=== PATIENT | female | born 1985 | race American Indian/Alaskan Native ===

== ENCOUNTER 2021-04-22 23:46 | Inpatient (IN) | payer OTHER ==
[2021-04-23] MEDS ORDERED: ASPIRIN 325 MG TAB PO ONE (01:05)
[2021-04-23 01:48] LABS: Basophils # (Auto) 0.1 K/mm3 (0.0-0.1); Eosinophils # (Auto) 0.1 K/mm3 (0.0-0.4); Eosinophils % (Auto) 1.2 % (0.0-4.3); Lymphocytes # (Auto) 2.7 K/mm3 (1.2-5.4); Lymphocytes % (Auto) 45.7 % (13.4-35.0); Mean Corpuscular HGB Conc 31 % (30-34); Mean Corpuscular Volume 74 fl (79-97); Monocytes # (Auto) 0.5 K/mm3 (0.0-0.8); Monocytes % (Auto) 9.1 % (0.0-7.3); Platelet Count 244 K/mm3 (140-440); Red Blood Count 6.16 M/mm3 (3.65-5.03)
[2021-04-23 01:49] LABS: Hematocrit 45.5 % (30.3-42.9); Hemoglobin 13.9 gm/dl (10.1-14.3); Red Cell Distribution Width 22.2 % (13.2-15.2)
--- NOTE | 2021-04-23 02:04 | XRay Report ---
CHEST 1 VIEW, 04/23/2021 1:35 AM CLINICAL INFORMATION/INDICATION: Chest pain. Shortness of breath. COMPARISON: None. FINDINGS: SUPPORT DEVICES: None. HEART: Cardiac silhouette is upper limits of normal in size. LUNGS/PLEURA: There are bibasilar pleural-parenchymal opacities, right greater than left. ADDITIONAL FINDINGS: No additional acute findings. IMPRESSION: 1. Bibasilar pleural-parenchymal opacities which may be secondary to bilateral pleural effusions. Signer Name: Rizwana Huff MD Signed: 04/23/2021 1:59 AM Workstation Name: [id number]
[2021-04-23 02:15] LABS: Alanine Aminotransferase 31 units/L (7-56); Albumin 3.7 g/dL (3.9-5); BUN/Creatinine Ratio 20; Blood Urea Nitrogen 28 mg/dL (7-17); Calcium 9.4 mg/dL (8.4-10.2); Hemolysis Index 5
[2021-04-23] MEDS ORDERED: ASPIRIN 325 MG TAB ONE (10:58)
[2021-04-23] MEDS ORDERED: FUROSEMIDE 40 MG/4 ML INJ IV ONE (11:41)
--- NOTE | 2021-04-23 11:43 | Emergency Department Report ---
ED General Adult HPI - General Chief complaint: Chest Pain Stated complaint: JOSE/CHEST PAIN PUI?: No Time Seen by Provider: 04/23/21 11:32 Source: patient, EMS ( EMS documentation not available at time of chart dictation ), RN notes reviewed Mode of arrival: Wheelchair Limitations: Altered Mental Status - History of Present Illness Initial comments: The patient was evaluated in the emergency department for symptoms described in the history of present illness. He/she was evaluated in the context of the global COVID-19 pandemic, which necessitated consideration that the patient might be at risk for infection with the virus that causes COVID-19. Institutional protocols and algorithms that pertain to the evaluation of hamilton ents at risk for COVID-19 are in a state of rapid change based on information released by regulatory bodies including the CDC and federal and state organizations. These policies and algorithms were followed during the patient's care in the emergency department. Please note that these policies, procedures and recommendations changed on a rapid basis. This is a 35-year-old female. She is not known to myself previously. The details of her past medical history are unclear. The patient is reportedly brought to this hospital by emergency medical services this morning. Her triage past medical history includes CHF, heart disease, thoracentesis, and stroke. Apparently, the patient had a complaint of chest tightness, shortness of breath, and swelling. Upon my initial evaluation, the patient is sleeping in her stretcher. Saturating 82% on room air, and snoring loudly. The patient is very difficult to arouse. Eventually I am able to arouse her, and she tells me that she is having shortness of breath, and lower extremity swelling. However, she goes right back to sleep. The patient is a poor historian, and has difficulty describing the qualitative nature of symptoms, exacerbating factors, relieving factors, or aggravating factors. She is not accompanied by friends or family at this time for additional information or collateral information. She cannot tell me if she is now, or if she is delivered or given within the past 6 weeks. No additional history is available at this time. -: unknown Location: left, right, lower extremity - Related Data Allergies Allergy/AdvReac Type Severity Reaction Status Date / Time No Known Allergies Allergy Unverified 04/23/21 01:02 ED Review of Systems ROS: Stated complaint: JOSE/CHEST PAIN Other details as noted in HPI Comment: Unobtainable due to pts medical conditions Constitutional: malaise, weakness Respiratory: shortness of breath Cardiovascular: edema Neurological: weakness, confusion ED Past Medical Hx - Past Medical History Hx CVA: Yes Hx Heart Attack/AMI: Yes Hx Congestive Heart Failure: Yes Additional medical history: thoracentesis - Surgical History Past Surgical History?: No - Social History Smoking Status: Current Every Day Smoker Substance Use Type: None ED Physical Exam - General Limitations: Altered Mental Status General appearance: lethargic - Head Head exam: Present: atraumatic, normocephalic - Eye Eye exam: Present: normal appearance - ENT ENT exam: Present: normal exam, normal orophraynx, mucous membranes moist, normal external ear exam - Neck Neck exam: Present: normal inspection. Absent: tenderness, meningismus - Respiratory Respiratory exam: Present: rales. Absent: respiratory distress, wheezes, stridor - Cardiovascular Cardiovascular Exam: Present: regular rate, normal rhythm, normal heart sounds. Absent: bradycardia, tachycardia, irregular rhythm, systolic murmur, diastolic murmur, rubs, gallop - GI/Abdominal GI/Abdominal exam: Present: soft, other (Abdominal wall anasarca is noted). Absent: distended, tenderness, guarding, rebound, rigid, pulsatile mass - Extremities Exam Extremities exam: Present: normal inspection, pedal edema (3+ edema in the bilateral lower extremities), other (2+ pulses noted in the bilateral upper and lower extremities. There is no palpable cord. negative Homans sign. Muscular compartments are soft. The pelvis is stable.) - Back Exam Back exam: Present: normal inspection. Absent: tenderness, CVA tenderness (R), CVA tenderness (L), paraspinal tenderness, vertebral tenderness - Neurological Exam Neurological exam: Present: altered, other (The patient is sleepy. The patient is arousable. The patient will move 4 extremities.) - Psychiatric Psychiatric exam: Present: flat affect - Skin Skin exam: Present: warm, dry, intact, normal color. Absent: rash ED Course Vital Signs 04/23/21 04/23/21 04/23/21 01:03 01:33 10:33 Temperature 97.4 F L 98 F Pulse Rate 92 H 92 H 92 H Respiratory 18 27 H 19 Rate Blood Pressure 117/89 O2 Sat by Pulse 99 93 90 Oximetry 04/23/21 04/23/21 04/23/21 10:46 11:00 11:16 Temperature Pulse Rate 85 92 H 83 Respiratory 25 H 34 H 22 Rate Blood Pressure 123/95 114/82 114/82 O2 Sat by Pulse 98 86 99 Oximetry 04/23/21 04/23/21 04/23/21 11:30 11:46 12:00 Temperature Pulse Rate 84 91 H 92 H Respiratory 24 31 H 31 H Rate Blood Pressure 109/84 109/84 108/83 O2 Sat by Pulse 93 96 93 Oximetry 04/23/21 04/23/21 04/23/21 12:16 13:24 13:30 Temperature Pulse Rate 94 H 93 H 88 Respiratory 39 H 12 29 H Rate Blood Pressure 108/83 109/84 115/88 O2 Sat by Pulse 86 89 Oximetry - Reevaluation(s) Reevaluation #1: 04/23/21 13:[address] scan of the brain negative for acute findings. 04/23/21 14:38 Suspect that lactic acid is elevated as a type II/type B lactic acidosis. Patient already demonstrating evidence of florid fluid overload, and will not benefit from aggressive IV fluid resuscitation at this time. ED Medical Decision Making - Lab Data Result diagrams: 04/23/21 01:20 04/23/21 01:20 Vital Signs 04/23/21 01:03 Temperature 97.4 F L Pulse Rate 92 H Respiratory 18 Rate Blood Pressure 117/89 O2 Sat by Pulse 99 Oximetry Lab Results 04/23/21 04/23/21 04/23/21 Range/Units 01:20 01:20 10:49 WBC 5.8 (4.5-11.0) K/mm3 RBC 6.16 H (3.65-5.03) M/mm3 Hgb 13.9 (10.1-14.3) gm/dl Hct 45.5 H (30.3-42.9) % MCV 74 L (79-97) fl MCH 23 L (28-32) pg MCHC 31 (30-34) % RDW 22.2 H (13.2-15.2) % Plt Count 244 (140-440) K/mm3 Lymph % (Auto) 45.7 H (13.4-35.0) % [place] % (Auto) 9.1 H (0.0-7.3) % Eos % (Auto) 1.2 (0.0-4.3) % Baso % (Auto) 1.0 (0.0-1.8) % Lymph # (Auto) 2.7 (1.2-5.4) K/mm3 [place] # (Auto) 0.5 (0.0-0.8) K/mm3 Eos # (Auto) 0.1 (0.0-0.4) K/mm3 Baso # (Auto) 0.1 (0.0-0.1) K/mm3 Seg Neutrophils % 43.0 (40.0-70.0) % Seg Neutrophils # 2.5 (1.8-7.7) K/mm3 Sodium 141 (137-145) mmol/L Potassium 4.1 (3.6-5.0) mmol/L Chloride 101.0 (98-107) mmol/L Carbon Dioxide 25 (22-30) mmol/L Anion Gap 19 mmol/L BUN 28 H (7-17) mg/dL Creatinine 1.4 H (0.6-1.2) mg/dL Estimated GFR 43 ml/min BUN/Creatinine Ratio 20 % Glucose 92 (65-100) mg/dL Calcium 9.4 (8.4-10.2) mg/dL Total Bilirubin 1.80 H (0.1-1.2) mg/dL AST 31 (5-40) units/L ALT 31 (7-56) units/L Alkaline Phosphatase 213 H (35-129) units/L Troponin T < 0.010 < 0.010 (0.00-0.029) ng/mL NT-Pro-B Natriuret Pep (0-450) pg/mL Total Protein 6.4 (6.3-8.2) g/dL Albumin 3.7 L (3.9-5) g/dL Albumin/Globulin Ratio 1.4 % Lipase (13-60) units/L 04/23/21 Range/Units 10:49 WBC (4.5-11.0) K/mm3 RBC (3.65-5.03) M/mm3 Hgb (10.1-14.3) gm/dl Hct (30.3-42.9) % MCV (79-97) fl MCH (28-32) pg MCHC (30-34) % RDW (13.2-15.2) % Plt Count (140-440) K/mm3 Lymph % (Auto) (13.4-35.0) % [place] % (Auto) (0.0-7.3) % Eos % (Auto) (0.0-4.3) % Baso % (Auto) (0.0-1.8) % Lymph # (Auto) (1.2-5.4) K/mm3 [place] # (Auto) (0.0-0.8) K/mm3 Eos # (Auto) (0.0-0.4) K/mm3 Baso # (Auto) (0.0-0.1) K/mm3 Seg Neutrophils % (40.0-70.0) % Seg Neutrophils # (1.8-7.7) K/mm3 Sodium (137-145) mmol/L Potassium (3.6-5.0) mmol/L Chloride (98-107) mmol/L Carbon Dioxide (22-30) mmol/L Anion Gap mmol/L BUN (7-17) mg/dL Creatinine (0.6-1.2) mg/dL Estimated GFR ml/min BUN/Creatinine Ratio % Glucose (65-100) mg/dL Calcium (8.4-10.2) mg/dL Total Bilirubin (0.1-1.2) mg/dL AST (5-40) units/L ALT (7-56) units/L Alkaline Phosphatase (35-129) units/L Troponin T (0.00-0.029) ng/mL NT-Pro-B Natriuret Pep 5810 H (0-450) pg/mL Total Protein (6.3-8.2) g/dL Albumin (3.9-5) g/dL Albumin/Globulin Ratio % Lipase 21 (13-60) units/L Lab Results 04/23/21 04/23/21 04/23/21 Range/Units 01:20 01:20 10:49 WBC 5.8 (4.5-11.0) K/mm3 RBC 6.16 H (3.65-5.03) M/mm3 Hgb 13.9 (10.1-14.3) gm/dl Hct 45.5 H (30.3-42.9) % MCV 74 L (79-97) fl MCH 23 L (28-32) pg MCHC 31 (30-34) % RDW 22.2 H (13.2-15.2) % Plt Count 244 (140-440) K/mm3 Lymph % (Auto) 45.7 H (13.4-35.0) % [place] % (Auto) 9.1 H (0.0-7.3) % Eos % (Auto) 1.2 (0.0-4.3) % Baso % (Auto) 1.0 (0.0-1.8) % Lymph # (Auto) 2.7 (1.2-5.4) K/mm3 [place] # (Auto) 0.5 (0.0-0.8) K/mm3 Eos # (Auto) 0.1 (0.0-0.4) K/mm3 Baso # (Auto) 0.1 (0.0-0.1) K/mm3 Seg Neutrophils % 43.0 (40.0-70.0) % Seg Neutrophils # 2.5 (1.8-7.7) K/mm3 Sodium 141 (137-145) mmol/L Potassium 4.1 (3.6-5.0) mmol/L Chloride 101.0 (98-107) mmol/L Carbon Dioxide 25 (22-30) mmol/L Anion Gap 19 mmol/L BUN 28 H (7-17) mg/dL Creatinine 1.4 H (0.6-1.2) mg/dL Estimated GFR 43 ml/min BUN/Creatinine Ratio 20 % Glucose 92 (65-100) mg/dL Calcium 9.4 (8.4-10.2) mg/dL Magnesium (1.7-2.3) mg/dL Total Bilirubin 1.80 H (0.1-1.2) mg/dL AST 31 (5-40) units/L ALT 31 (7-56) units/L Alkaline Phosphatase 213 H (35-129) units/L Total Creatine Kinase (30-135) units/L Troponin T < 0.010 < 0.010 (0.00-0.029) ng/mL NT-Pro-B Natriuret Pep (0-450) pg/mL Total Protein 6.4 (6.3-8.2) g/dL Albumin 3.7 L (3.9-5) g/dL Albumin/Globulin Ratio 1.4 % Lipase (13-60) units/L TSH (0.270-4.200) mlU/mL HCG, Quant (0-4) mIU/mL Salicylates (2.8-20.0) mg/dL Acetaminophen (10.0-30.0) ug/mL Plasma/Serum Alcohol (0-0.07) % 04/23/21 04/23/21 04/23/21 Range/Units 10:49 12:53 12:53 WBC (4.5-11.0) K/mm3 RBC (3.65-5.03) M/mm3 Hgb (10.1-14.3) gm/dl Hct (30.3-42.9) % MCV (79-97) fl MCH (28-32) pg MCHC (30-34) % RDW (13.2-15.2) % Plt Count (140-440) K/mm3 Lymph % (Auto) (13.4-35.0) % [place] % (Auto) (0.0-7.3) % Eos % (Auto) (0.0-4.3) % Baso % (Auto) (0.0-1.8) % Lymph # (Auto) (1.2-5.4) K/mm3 [place] # (Auto) (0.0-0.8) K/mm3 Eos # (Auto) (0.0-0.4) K/mm3 Baso # (Auto) (0.0-0.1) K/mm3 Seg Neutrophils % (40.0-70.0) % Seg Neutrophils # (1.8-7.7) K/mm3 Sodium (137-145) mmol/L Potassium (3.6-5.0) mmol/L Chloride (98-107) mmol/L Carbon Dioxide (22-30) mmol/L Anion Gap mmol/L BUN (7-17) mg/dL Creatinine (0.6-1.2) mg/dL Estimated GFR ml/min BUN/Creatinine Ratio % Glucose (65-100) mg/dL Calcium (8.4-10.2) mg/dL Magnesium 2.10 (1.7-2.3) mg/dL Total Bilirubin (0.1-1.2) mg/dL AST (5-40) units/L ALT (7-56) units/L Alkaline Phosphatase (35-129) units/L Total Creatine Kinase 59 (30-135) units/L Troponin T (0.00-0.029) ng/mL NT-Pro-B Natriuret Pep 5810 H (0-450) pg/mL Total Protein (6.3-8.2) g/dL Albumin (3.9-5) g/dL Albumin/Globulin Ratio % Lipase 21 (13-60) units/L TSH 4.330 H (0.270-4.200) mlU/mL HCG, Quant (0-4) mIU/mL Salicylates (2.8-20.0) mg/dL Acetaminophen (10.0-30.0) ug/mL Plasma/Serum Alcohol (0-0.07) % 04/23/21 04/23/21 04/23/21 Range/Units 12:53 12:53 12:53 WBC (4.5-11.0) K/mm3 RBC (3.65-5.03) M/mm3 Hgb (10.1-14.3) gm/dl Hct (30.3-42.9) % MCV (79-97) fl MCH (28-32) pg MCHC (30-34) % RDW (13.2-15.2) % Plt Count (140-440) K/mm3 Lymph % (Auto) (13.4-35.0) % [place] % (Auto) (0.0-7.3) % Eos % (Auto) (0.0-4.3) % Baso % (Auto) (0.0-1.8) % Lymph # (Auto) (1.2-5.4) K/mm3 [place] # (Auto) (0.0-0.8) K/mm3 Eos # (Auto) (0.0-0.4) K/mm3 Baso # (Auto) (0.0-0.1) K/mm3 Seg Neutrophils % (40.0-70.0) % Seg Neutrophils # (1.8-7.7) K/mm3 Sodium (137-145) mmol/L Potassium (3.6-5.0) mmol/L Chloride (98-107) mmol/L Carbon Dioxide (22-30) mmol/L Anion Gap mmol/L BUN (7-17) mg/dL Creatinine (0.6-1.2) mg/dL Estimated GFR ml/min BUN/Creatinine Ratio % Glucose (65-100) mg/dL Calcium (8.4-10.2) mg/dL Magnesium (1.7-2.3) mg/dL Total Bilirubin (0.1-1.2) mg/dL AST (5-40) units/L ALT (7-56) units/L Alkaline Phosphatase (35-129) units/L Total Creatine Kinase (30-135) units/L Troponin T (0.00-0.029) ng/mL NT-Pro-B Natriuret Pep (0-450) pg/mL Total Protein (6.3-8.2) g/dL Albumin (3.9-5) g/dL Albumin/Globulin Ratio % Lipase (13-60) units/L TSH (0.270-4.200) mlU/mL HCG, Quant < 2 (0-4) mIU/mL Salicylates 0.6 L (2.8-20.0) mg/dL Acetaminophen 5.0 L (10.0-30.0) ug/mL Plasma/Serum Alcohol (0-0.07) % 04/23/21 Range/Units 12:53 WBC (4.5-11.0) K/mm3 RBC (3.65-5.03) M/mm3 Hgb (10.1-14.3) gm/dl Hct (30.3-42.9) % MCV (79-97) fl MCH (28-32) pg MCHC (30-34) % RDW (13.2-15.2) % Plt Count (140-440) K/mm3 Lymph % (Auto) (13.4-35.0) % [place] % (Auto) (0.0-7.3) % Eos % (Auto) (0.0-4.3) % Baso % (Auto) (0.0-1.8) % Lymph # (Auto) (1.2-5.4) K/mm3 [place] # (Auto) (0.0-0.8) K/mm3 Eos # (Auto) (0.0-0.4) K/mm3 Baso # (Auto) (0.0-0.1) K/mm3 Seg Neutrophils % (40.0-70.0) % Seg Neutrophils # (1.8-7.7) K/mm3 Sodium (137-145) mmol/L Potassium (3.6-5.0) mmol/L Chloride (98-107) mmol/L Carbon Dioxide (22-30) mmol/L Anion Gap mmol/L BUN (7-17) mg/dL Creatinine (0.6-1.2) mg/dL Estimated GFR ml/min BUN/Creatinine Ratio % Glucose (65-100) mg/dL Calcium (8.4-10.2) mg/dL Magnesium (1.7-2.3) mg/dL Total Bilirubin (0.1-1.2) mg/dL AST (5-40) units/L ALT (7-56) units/L Alkaline Phosphatase (35-129) units/L Total Creatine Kinase (30-135) units/L Troponin T (0.00-0.029) ng/mL NT-Pro-B Natriuret Pep (0-450) pg/mL Total Protein (6.3-8.2) g/dL Albumin (3.9-5) g/dL Albumin/Globulin Ratio % Lipase (13-60) units/L TSH (0.270-4.200) mlU/mL HCG, Quant (0-4) mIU/mL Salicylates (2.8-20.0) mg/dL Acetaminophen (10.0-30.0) ug/mL Plasma/Serum Alcohol < 0.01 (0-0.07) % Vital Signs 04/23/21 04/23/21 04/23/21 01:03 01:33 10:33 Temperature 97.4 F L 98 F Pulse Rate 92 H 92 H 92 H Respiratory 18 27 H 19 Rate Blood Pressure 117/89 O2 Sat by Pulse 99 93 90 Oximetry 04/23/21 04/23/21 04/23/21 10:46 11:00 11:16 Temperature Pulse Rate 85 92 H 83 Respiratory 25 H 34 H 22 Rate Blood Pressure 123/95 114/82 114/82 O2 Sat by Pulse 98 86 99 Oximetry 04/23/21 04/23/21 04/23/21 11:30 11:46 12:00 Temperature Pulse Rate 84 91 H 92 H Respiratory 24 31 H 31 H Rate Blood Pressure 109/84 109/84 108/83 O2 Sat by Pulse 93 96 93 Oximetry 04/23/21 04/23/21 04/23/21 12:16 13:24 13:30 Temperature Pulse Rate 94 H 93 H 88 Respiratory 39 H 12 29 H Rate Blood Pressure 108/83 109/84 115/88 O2 Sat by Pulse 86 89 Oximetry - EKG Data -: EKG Interpreted by Fl EKG shows normal: sinus rhythm Rate: normal - EKG Data When compared to previous EKG there are: previous EKG unavailable 04/23/21 12:52 EKG interpreted at 02: 21 This is a sinus rhythm, with a normal P wave axis, rate 89 bpm. There is a normal axis, there is poor R wave progression, the QTC is prolonged, the W[place] interval is 199 ms. There is motion artifact. This is an abnormal EKG. This is not a STEMI. No prior available for comparison - Radiology Data Radiology results: report reviewed, image reviewed [facility] [address] [place] [address] XRay Report Signed Patient: SOFIA MARTÍNEZ MR#: [id number] : 1985 Acct:[id number] Age/Sex: 35 / F ADM Date: 04/22/21 Loc: ED [facility] Dr: Ordering Physician: ED MD MANSI Date of Service: 04/23/21 Procedure(s): XR chest 1V ap Accession Number(s): [id number] cc: ED MD MANSI Fluoro Time In Minutes: CHEST 1 VIEW, 04/23/2021 1:35 AM CLINICAL INFORMATION/INDICATION: Chest pain. Shortness of breath. COMPARISON: None. FINDINGS: SUPPORT DEVICES: None. HEART: Cardiac silhouette is upper limits of normal in size. LUNGS/PLEURA: There are bibasilar pleural-parenchymal opacities, right greater than left. ADDITIONAL FINDINGS: No additional acute findings. IMPRESSION: 1. Bibasilar pleural- parenchymal opacities which may be secondary to bilateral pleural effusions. Signer Name: Rizwana Huff MD Signed: 04/23/2021 1:59 AM Workstation Name: [id number] Transcribed By: EB Dictated By: Rizwana Huff MD Electronically Authenticated By: Rizwana Huff MD Signed Date/Time: 04/23/21158 DD/ 7 CT BRAIN: 04/23/2021 INDICATION / CLINICAL INFORMATION: ams. COMPARISON: None available. FINDINGS: BRAIN/INTRACRANIAL STRUCTURES: Unenhanced CT images of the brain demonstrate no evidence of acute intracranial abnormality. Ventricles and sulci are slightly prominent in size for a patient of this age, an in dication of mild cerebral atrophy. There is no evidence of acute ischemic injury, hemorrhage, or mass. There are no abnormal extra-axial fluid collections. EXTRACRANIAL STRUCTURES: Unremarkable. IMPRESSION: No acute abnormality. All CT scans at this location are performed using dose redu ction to [facility] by means of automated exposure control. Signer Name: Manuel Christopher MD Signed: 04/23/2021 11:57 AM Workstation Name: [id number] - Medical Decision Making Differential diagnosis Including but not limited to: Congestive heart failure, cardiorenal syndrome, hypercarbia, toxic encephalopathy, metabolic encephalopathy Assessment and plan 35-year-old female with evidence of decompensated congestive heart failure, manifest by hypoxia, crackles, rales, lower extremity edema, and anasarca. She may have a component of cardiorenal syndrome as well. She is confused during my initial evaluation, so we obtain a CT scan of the brain, as well as additional laboratory studies. Pneumonia is less likely than CHF, but we will cover empirically with ceftriaxone and azithromycin. Aspirin was admitted straight to this patient prior to my personal evaluation. Patient meets criteria for admission hospitalization secondary to the aforementioned. Arterial blood gas pending. Hospital physician, Dr. Mcdonald to admit to [facility] Critical Care Time: Yes Critical care time in (mins) excluding proc time.: 35 Critical care attestation.: If time is entered above; I have spent that time in minutes in the direct care of this critically ill patient, excluding procedure time. ED Disposition Clinical Impression: Cardiorenal syndrome with renal failure, Acute encephalopathy, Fluid overload Disposition: OP ADMIT IP TO THIS HOSP Is pt being admited?: Yes Does the pt Need Aspirin: No Condition: Serious
[2021-04-23] MEDS ORDERED: AZITHROMYCIN/NS 500 MG/250 ML 500 MG/250 ML BAG IV ONE (12:53)
[2021-04-23] MEDS ORDERED: cefTRIAXone/NS 1 GM/50 ML 1 GM/50 ML BAG IV ONE (12:53)
--- NOTE | 2021-04-23 13:01 | Cat Scan Report ---
CT BRAIN: 04/23/2021 INDICATION / CLINICAL INFORMATION: ams. COMPARISON: None available. FINDINGS: BRAIN/INTRACRANIAL STRUCTURES: Unenhanced CT images of the brain demonstrate no evidence of acute int racranial abnormality. Ventricles and sulci are slightly prominent in size for a patient of this age, an indication of mild cerebral atrophy. There is no evidence of acute ischemic injury, hemorrhage, or mass. There are no abnormal extra-axial fluid collections. EXTRACRANIAL STRUCTURES: Unremarkable. IMPRESSION: No acute abnormality. All CT scans at this location are performed using dose reduction to [facility] by means of automated expos ure control. Signer Name: Manuel Christopher MD Signed: 04/23/2021 12:57 PM Workstation Name: [id number]
[2021-04-24] MEDS ORDERED: SODIUM CHLORIDE 0.9% 1000 ML 1,000 ML IV ONE (01:14)
[2021-04-24] MEDS ORDERED: HYDROmorphone 1 MG/1 ML INJ IV PRN (01:58)
[2021-04-24] MEDS ORDERED: ONDANSETRON 4 MG/2 ML INJ IV PRN (01:58)
[2021-04-24] MEDS ORDERED: ACETAMINOPHEN 325 MG TAB PO PRN (01:58)
[2021-04-24] MEDS ORDERED: METOCLOPRAMIDE 10 MG/2 ML INJ IV PRN (01:58)
[2021-04-24] MEDS: POTASSIUM CHLORIDE ER 20 MEQ TAB PO SCH ×3 (04:55→21:33)
[2021-04-24] MEDS: HEPARIN 5,000 UNIT/1 ML VIAL SUB-Q SCH ×2 (04:55→10:47)
[2021-04-24] MEDS: FUROSEMIDE 40 MG/4 ML INJ IV SCH ×3 (06:17→17:25)
[2021-04-24 06:24] LABS: BUN/Creatinine Ratio 22; Blood Urea Nitrogen 26 mg/dL (7-17); Calcium 8.9 mg/dL (8.4-10.2); Hemolysis Index 69
--- NOTE | 2021-04-24 07:24 | History and Physical Report ---
History of Present Illness Date of examination: 04/23/21 Date of admission: 04/23/21 12:57 Chief complaint: Altered sensorium and shortness of breath for 2 days. History of present illness: 35-year-old female with history of CHF, CVA and pleural effusion was found to be lethargic and her oxygen saturations are low at 82%. Difficult to arouse. Shortness of breath on minimal exertion and lying down. Noncompliant with her medications. No fever or chills. - Past Medical History --CVA: Yes --Heart Attack/AMI: Yes --Congestive Heart Failure: Yes Additional medical history: thoracentesis - Surgical History Past Surgical History?: No - Social History Smoking Status: Current Every Day Smoker Substance Use Type: None -Family history Htn Review of Systems ROS: Stated complaint: JOSE/CHEST PAIN Other details as noted in HPI Comment: Unobtainable due to pts medical conditions Constitutional: malaise, weakness Respiratory: shortness of breath Cardiovascular: edema Neurological: weakness, confusion Medications and Allergies Allergies Allergy/AdvReac Type Severity Reaction Status Date / Time No Known Allergies Allergy Unverified 04/23/21 01:02 Active Meds: Active Medications Acetaminophen (Acetaminophen 325 Mg Tab) 650 mg PO Q4H PRN PRN Reason: Pain MILD(1-3)/Fever >100.5/ADEN Famotidine (Famotidine 20 Mg Tab) 20 mg PO QAM [facility] Furosemide (Furosemide 40 Mg/4 Ml Inj) 40 mg IV 0600,1800 [facility] Last Admin: 04/24/21 06:17 Dose: 40 mg Documented by: Heparin Sodium (Porcine) (Heparin 5,000 Unit/1 Ml Vial) 5,000 unit SUB-Q Q12HR [facility] Last Admin: 04/24/21 04:55 Dose: 5,000 unit Documented by: Hydromorphone HCl (Hydromorphone 1 Mg/1 Ml Inj) 0.5 mg IV Q3H PRN PRN Reason: Pain , Severe (7-10) Metoclopramide HCl (Metoclopramide 10 Mg/2 Ml Inj) 5 mg IV Q6H PRN PRN Reason: Nausea And Vomiting Ondansetron HCl (Ondansetron 4 Mg/2 Ml Inj) 4 mg IV Q8H PRN PRN Reason: Nausea And Vomiting Last Admin: 04/24/21 04:55 Dose: 4 mg Documented by: Oxycodone/Acetaminophen (Oxycodone /Acetaminophen 5-325mg Tab) 1 tab PO Q6H PRN PRN Reason: Pain, Moderate (4-6) Potassium Chloride (Potassium Chloride Er 20 Meq Tab) 20 meq PO Q12HR [facility] Last Admin: 04/24/21 04:55 Dose: 20 meq Documented by: Sodium Chloride (Sodium Chloride 0.9% 10 Ml Flush Syringe) 10 ml IV BID [facility] Sodium Chloride (Sodium Chloride 0.9% 10 Ml Flush Syringe) 10 ml IV PRN PRN PRN Reason: LINE FLUSH Exam - Constitutional Vitals: Temp Pulse Resp BP Pulse Ox 97.4 F L 90 19 124/99 100 04/24/21 03:49 04/24/21 06:00 04/24/21 03:49 04/24/21 03:49 04/24/21 03:49 General appearance: Present: mild distress, well-nourished - EENT Eyes: Present: PERRL ENT: hearing intact, clear oral mucosa - Neck Neck: Present: supple, normal ROM - Respiratory Respiratory effort: normal Respiratory: bilateral: CTA, rales - Cardiovascular Heart rate: 98 Rhythm: regular Heart Sounds: Present: S1 & S2. Absent: rub, click - Extremities Extremities: pulses symmetrical, No edema Peripheral Pulses: within normal limits - Abdominal General gastrointestinal: Present: soft, non-tender, non-distended, normal bowel sounds Female genitourinary: Present: normal - Rectal Rectal Exam: deferred - Integumentary Integumentary: Present: clear, warm, dry - Musculoskeletal Musculoskeletal: generalized weakness - Psychiatric Psychiatric: appropriate mood/affect, other (Lethargic) - Neurologic Neurologic: CNII-XII intact, moves all extremities HEART Score - HEART Score History: Moderately suspicious Age: < 45 Risk factors: 1-2 risk factors Troponin: Troponin T < 0.010 ng/mL (0.00-0.029) 04/23/21 10:49 Troponin: 1-3x normal limit - Critical Actions Critical Actions: 4-6 pts:12-16.6% risk of adverse cardiac event. Should be admitted Results - Labs CBC & Chem 7: 04/23/21 01:20 04/24/21 05:47 Labs: Laboratory Last Values WBC 5.8 K/mm3 (4.5-11.0) 04/23/21 01:20 RBC 6.16 M/mm3 (3.65-5.03) H 04/23/21 01:20 Hgb 13.9 gm/dl (10.1-14.3) 04/23/21 01:20 Hct 45.5 % (30.3-42.9) H 04/23/21 01:20 MCV 74 fl (79-97) L 04/23/21 01:20 MCH 23 pg (28-32) L 04/23/21 01:20 MCHC 31 % (30-34) 04/23/21 01:20 RDW 22.2 % (13.2-15.2) H 04/23/21 01:20 Plt Count 244 K/mm3 (140-440) 04/23/21 01:20 Lymph % (Auto) 45.7 % (13.4-35.0) H 04/23/21 01:20 [place] % (Auto) 9.1 % (0.0-7.3) H 04/23/21 01:20 Eos % (Auto) 1.2 % (0.0-4.3) 04/23/21 01:20 Baso % (Auto) 1.0 % (0.0-1.8) 04/23/21 01:20 Lymph # (Auto) 2.7 K/mm3 (1.2-5.4) 04/23/21 01:20 [place] # (Auto) 0.5 K/mm3 (0.0-0.8) 04/23/21 01:20 Eos # (Auto) 0.1 K/mm3 (0.0-0.4) 04/23/21 01:20 Baso # (Auto) 0.1 K/mm3 (0.0-0.1) 04/23/21 01:20 Seg Neutrophils % 43.0 % (40.0-70.0) 04/23/21 01:20 Seg Neutrophils # 2.5 K/mm3 (1.8-7.7) 04/23/21 01:20 Sodium 142 mmol/L (137-145) 04/24/21 05:47 Potassium 4.7 mmol/L (3.6-5.0) 04/24/21 05:47 Chloride 101.1 mmol/L (98-107) 04/24/21 05:47 Carbon Dioxide 27 mmol/L (22-30) 04/24/21 05:47 Anion Gap 19 mmol/L 04/24/21 05:47 BUN 26 mg/dL (7-17) H 04/24/21 05:47 Creatinine 1.2 mg/dL (0.6-1.2) 04/24/21 05:47 Estimated GFR > 60 ml/min 04/24/21 05:47 BUN/Creatinine Ratio 22 % 04/24/21 05:47 Glucose 102 mg/dL (65-100) H 04/24/21 05:47 Hemoglobin A1c 6.6 % (4-6) H 04/24/21 05:47 Lactic Acid 3.40 mmol/L (0.7-2.0) H* 04/24/21 05:47 Calcium 8.9 mg/dL (8.4-10.2) 04/24/21 05:47 Magnesium 2.10 mg/dL (1.7-2.3) 04/23/21 12:53 Total Bilirubin 1.80 mg/dL (0.1-1.2) H 04/23/21 01:20 AST 31 units/L (5-40) 04/23/21 01:20 ALT 31 units/L (7-56) 04/23/21 01:20 Alkaline Phosphatase 213 units/L (35-129) H 04/23/21 01:20 Total Creatine Kinase 59 units/L (30-135) 04/23/21 12:53 Troponin T < 0.010 ng/mL (0.00-0.029) 04/23/21 10:49 NT-Pro-B Natriuret Pep 5810 pg/mL (0-450) H 04/23/21 10:49 Total Protein 6.4 g/dL (6.3-8.2) 04/23/21 01:20 Albumin 3.7 g/dL (3.9-5) L 04/23/21 01:20 Albumin/Globulin Ratio 1.4 % 04/23/21 01:20 Lipase 21 units/L (13-60) 04/23/21 10:49 TSH 4.330 mlU/mL (0.270-4.200) H 04/23/21 12:53 HCG, Quant < 2 mIU/mL (0-4) 04/23/21 12:53 Salicylates 0.6 mg/dL (2.8-20.0) L 04/23/21 12:53 Acetaminophen 5.0 ug/mL (10.0-30.0) L 04/23/21 12:53 Plasma/Serum Alcohol < 0.01 % (0-0.07) 04/23/21 12:53 BMP 04/24/21 05:47 Sodium 142 Potassium 4.7 Chloride 101.1 Carbon Dioxide 27 BUN 26 H Creatinine 1.2 Glucose 102 H Calcium 8.9 Cardiac Enzymes 04/23/21 04/23/21 Range/Units 10:49 12:53 Total Creatine Kinase 59 (30-135) units/L Troponin T < 0.010 (0.00-0.029) ng/mL Microbiology: Microbiology 04/23/21 12:53 Peripheral/Venous Blood Culture - Preliminary Culture in Progress 04/23/21 12:51 Peripheral/Venous Blood Culture - Preliminary Culture in Progress - Imaging and Cardiology EKG: report reviewed (Sinus rhythm no acute ST-T wave changes) Imaging and Cardiology: Chest x-ray This is pleural parenchymal opacities which can be secondary to bilateral pl eural effusion Head CT No acute changes Matta/IV: Voiding Method External Female Catheter Assessment and Plan Advance Directives: Yes (Full code) VTE prophylaxis?: Chemical Plan of care discussed with patient/family: Yes - Patient Problems (1) Acute respiratory failure with hypoxia Current Visit: Yes Status: Acute Plan to address problem: Hypoxia secondary to CHF and bilateral pleural effusion IV Lasix for now echocardiogram for ejection fraction (2) Acute exacerbation of CHF (congestive heart failure) Current Visit: Yes Status: Acute Qualifiers: Heart failure type: combined systolic and diastolic Qualified Code(s): I50.43 - Acute on chronic combined systolic (congestive) and diastolic (congestive) heart failure Plan to address problem: Echocardiogram for ejection fraction IV Lasix every 12 hours Potassium every 12 hours Daily weights and intake and output BNP is high Cardiology consult if necessary (3) Hypertension Current Visit: Yes Status: Chronic Qualifiers: Hypertension type: essential hypertension Qualified Code(s): I10 - Essential (primary) hypertension Plan to address problem: Continue antihypertensives (4) Nicotine dependence Current Visit: Yes Status: Chronic Qualifiers: Nicotine product type: cigarettes Plan to address problem: Patient counseled and started on NicoDerm patches (5) SUSHANT (acute kidney injury) Current Visit: Yes Status: Acute Plan to address problem: Secondary to vasomotor nephropathy Trend the creatinine (6) Malnutrition Current Visit: Yes Status: Chronic Qualifiers: Malnutrition type: protein-calorie malnutrition Protein-calorie malnutrition severity: mild Qualified Code(s): E44.1 - Mild protein-calorie malnutrition Plan to address problem: Mild (7) DVT prophylaxis Current Visit: Yes Status: Acute Plan to address problem: On heparin and GI prophylaxis
[2021-04-24] MEDS ORDERED: carvediloL 3.125 MG TAB PO SCH ×2 (10:00→16:43)
[2021-04-24] MEDS ORDERED: LOSARTAN 50 MG TAB PO SCH (10:00)
[2021-04-24] MEDS: oxyCODONE /ACETAMINOPHEN 5-325MG TAB PO PRN ×2 (10:45→21:32)
[2021-04-24] MEDS: NICOTINE 14 MG/24 HR PATCH TD SCH (10:46)
[2021-04-24] MEDS: FAMOTIDINE 20 MG TAB PO SCH (10:46)
--- NOTE | 2021-04-24 13:48 | Consultation ---
History of Present Illness Consult date: 04/24/21 Reason for consult: dyspnea, pleural effusion History of present illness: 35-year-old female with history of HTN, CHF, CVA and pleural effusion was found to be lethargic and her oxygen saturations are low at 82%. Difficult to arouse. Shortness of breath on minimal exertion and lying down. Noncompliant with her medications. No fever or chills. Patient sleeping on 2 litres O2. O2 saturation 96%. Patient bearly arousable. Able to get little history. Patient smokes at times. Denies alcohol or drug abuse. Not working . Not . Children 1. No known drug allergies. No acute respiratory dustress at rest at this time. Patient afebrile. No leukocytosis. Chest xray 04/23/21 reported Bibasilar pleural-parenchymal opacities which may be secondary to bilateral pleural effusions. Recommend to get ultrasound of chest. Patient receiving lasix. Patient is on Rivaroxaban and famotidine. Medications and Allergies Allergies Allergy/AdvReac Type Severity Reaction Status Date / Time No Known Allergies Allergy Unverified 04/23/21 01:02 Active Meds: Active Medications Acetaminophen (Acetaminophen 325 Mg Tab) 650 mg PO Q4H PRN PRN Reason: Pain MILD(1-3)/Fever >100.5/ADEN Carvedilol (Carvedilol 3.125 Mg Tab) 3.125 mg PO BID [facility] Last Admin: 04/24/21 10:45 Dose: 3.125 mg Documented by: Famotidine (Famotidine 20 Mg Tab) 20 mg PO QAM [facility] Last Admin: 04/24/21 10:46 Dose: 20 mg Documented by: Furosemide (Furosemide 40 Mg/4 Ml Inj) 40 mg IV 0600,1800 [facility] Last Admin: 04/24/21 06:17 Dose: 40 mg Documented by: Heparin Sodium (Porcine) (Heparin 5,000 Unit/1 Ml Vial) 5,000 unit SUB-Q Q12HR [facility] Last Admin: 04/24/21 10:47 Dose: 5,000 unit Documented by: Hydromorphone HCl (Hydromorphone 1 Mg/1 Ml Inj) 0.5 mg IV Q3H PRN PRN Reason: Pain , Severe (7-10) Losartan Potassium (Losartan 50 Mg Tab) 50 mg PO QDAY [facility] Last Admin: 04/24/21 10:45 Dose: 50 mg Documented by: Metoclopramide HCl (Metoclopramide 10 Mg/2 Ml Inj) 5 mg IV Q6H PRN PRN Reason: Nausea And Vomiting Nicotine (Nicotine 14 Mg/24 Hr Patch) 14 mg TD QDAY [facility] Last Admin: 04/24/21 10:46 Dose: 14 mg Documented by: Ondansetron HCl (Ondansetron 4 Mg/2 Ml Inj) 4 mg IV Q8H PRN PRN Reason: Nausea And Vomiting Last Admin: 04/24/21 04:55 Dose: 4 mg Documented by: Oxycodone/Acetaminophen (Oxycodone /Acetaminophen 5-325mg Tab) 1 tab PO Q6H PRN PRN Reason: Pain, Moderate (4-6) Last Admin: 04/24/21 10:45 Dose: 1 tab Documented by: Potassium Chloride (Potassium Chloride Er 20 Meq Tab) 20 meq PO Q12HR [facility] Last Admin: 04/24/21 10:47 Dose: 20 meq Documented by: Sodium Chloride (Sodium Chloride 0.9% 10 Ml Flush Syringe) 10 ml IV BID [facility] Last Admin: 04/24/21 10:46 Dose: 10 ml Documented by: Sodium Chloride (Sodium Chloride 0.9% 10 Ml Flush Syringe) 10 ml IV PRN PRN PRN Reason: LINE FLUSH Review of Systems All systems: negative Physical Examination Vital signs: Vital Signs Temp Pulse Resp BP Pulse Ox 97.4 F L 92 H 18 117/89 99 04/23/21 01:03 04/23/21 01:03 04/23/21 01:03 04/23/21 01:03 04/23/21 01:03 General appearance: no acute distress, other (Sleepy.) Eyes: non-icteric ENT: oropharynx moist Neck: supple, no JVD Ascultation: Bilateral: diminished breath sounds Cardiovascular: regular rate and rhythm Gastrointestinal: normoactive bowel sounds, soft, non-tender Integumentary: normal Extremities: no cyanosis, no edema Musculoskeletal: no deformities Gait: other (Resting in bed) non-focal exam, pupils equal and round depressed Results - Laboratory Findings CBC and BMP: 04/23/21 01:20 04/24/21 05:47 Abnormal lab findings: Abnormal Labs 04/23/21 04/23/21 04/23/21 01:20 01:20 10:49 RBC 6.16 H Hct 45.5 H MCV 74 L MCH 23 L RDW 22.2 H Lymph % (Auto) 45.7 H [place] % (Auto) 9.1 H BUN 28 H Creatinine 1.4 H Glucose Hemoglobin A1c Lactic Acid Total Bilirubin 1.80 H Alkaline Phosphatase 213 H NT-Pro-B Natriuret Pep 5810 H Albumin 3.7 L TSH Salicylates Acetaminophen 04/23/21 04/23/21 04/23/21 12:53 12:53 12:53 RBC Hct MCV MCH RDW Lymph % (Auto) [place] % (Auto) BUN Creatinine Glucose Hemoglobin A1c Lactic Acid 3.00 H* Total Bilirubin Alkaline Phosphatase NT-Pro-B Natriuret Pep Albumin TSH 4.330 H Salicylates 0.6 L Acetaminophen 04/23/21 04/24/21 04/24/21 12:53 00:00 05:47 RBC Hct MCV MCH RDW Lymph % (Auto) [place] % (Auto) BUN Creatinine Glucose Hemoglobin A1c Lactic Acid 5.50 H* 3.40 H* Total Bilirubin Alkaline Phosphatase NT-Pro-B Natriuret Pep Albumin TSH Salicylates Acetaminophen 5.0 L 04/24/21 04/24/21 05:47 05:47 RBC Hct MCV MCH RDW Lymph % (Auto) [place] % (Auto) BUN 26 H Creatinine Glucose 102 H Hemoglobin A1c 6.6 H Lactic Acid Total Bilirubin Alkaline Phosphatase NT-Pro-B Natriuret Pep Albumin TSH Salicylates Acetaminophen - Diagnostic Findings Chest x-ray: report reviewed, image reviewed Additional studies: CHEST 1 VIEW, 04/23/2021 1:35 AM CLINICAL INFORMATION/INDICATION: Chest pain. Shortness of breath. COMPARISON: None. FINDINGS: SUPPORT DEVICES: None. HEART: Cardiac silhouette is upper limits of normal in size. LUNGS/PLEURA: There are bibasilar pleural-parenchymal opacities, right greater than left. ADDITIONAL FINDINGS: No additional acute findings. IMPRESSION: 1. Bibasilar pleural-parenchymal opacities which may be secondary to bilateral pleural effusions. Assessment and Plan 35-year-old female with history of HTN, CHF, CVA and pleural effusion was found to be lethargic and her oxygen saturations are low at 82%. Difficult to arouse. Shortness of breath on minimal exertion and lying down. Noncompliant with her medications. No fever or chills. Patient sleeping on 2 litres O2. O2 saturation 96%. Patient bearly arousable. Able to get little history. Patient smokes at times. Denies alcohol or drug abuse. Not working . Not . Children 1. No known drug allergies. No acute respiratory dustress at rest at this time. Patient afebrile. No leukocytosis. Chest xray 04/23/21 reported Bibasilar pleural-parenchymal opacities which may be secondary to bilateral pleural effusions. Recommend to get ultrasound of chest. Patient receiving lasix. Patient is on Rivaroxaban and famotidine. - Patient Problems (1) Acute respiratory failure with hypoxia Current Visit: Yes Status: Acute Plan to address problem: O2 2 litres via nasal canula. Recommend albuterol/atrovent aerosol treatment. Rivaroxaban Famotidine. (2) Acute exacerbation of CHF (congestive heart failure) Current Visit: Yes Status: Acute Qualifiers: Heart failure type: combined systolic and diastolic Qualified Code(s): I50.43 - Acute on chronic combined systolic (congestive) and diastolic (congestive) heart failure Plan to address problem: Management as per cardiology. (3) Cardiorenal syndrome with renal failure Current Visit: Yes Status: Acute Plan to address problem: Management as per nephrology. (4) Hypertension Current Visit: Yes Status: Chronic Qualifiers: Hypertension type: essential hypertension Qualified Code(s): I10 - Esse ntial (primary) hypertension Plan to address problem: Management as per primary care. (5) Nicotine dependence Current Visit: Yes Status: Chronic Qualifiers: Nicotine product type: cigarettes Plan to address problem: Counseled to stop smoking. PFTs as out patient. (6) Pleural effusion Current Visit: Yes Status: Acute Plan to address problem: Recommend ultrasound of chest.
--- NOTE | 2021-04-24 14:47 | Progress Note ---
Assessment and Plan Assessment and plan: Acute respiratory failure with hypoxia Hypoxia secondary to CHF and bilateral pleural effusion IV Lasix for now echocardiogram for ejection fraction Acute exacerbation of CHF (congestive heart failure) Echocardiogram for ejection fraction IV Lasix every 12 hours Potassium every 12 hours Daily weights and intake and output BNP is high Cardiology consulted Hypertension Continue antihypertensives Nicotine dependence Patient counseled and started on NicoDerm patches SUSHANT (acute kidney injury) Secondary to vasomotor nephropathy Improving DVT prophylaxis On heparin and GI prophylaxis Elevated Lactic acid. No signs or symptoms of sepsis 04/24/21 Patient admitted yesterday for acute respiratory failure due to CHF exacerbation and bilateral pleural effusion. Continue supplemental Oxygen. Cardiology and Pulmonology consulted. History Interval history: Shortness of breath Hospitalist Physical - Physical exam Narrative exam: Gen: Not in acute distress, lying in bed HEENT: Normochephalic, atraumatic Neck:supple, No JVD Lungs: Bilateral basal rales, no wheeze Heart:S1 and S2 reg, no murmurs, rubs or gallop Abd: soft, non tender, non distended, normal bowel sounds Ext: Bilateral pitting pedal edema, no clubbing, no cyanosis Neuro: Lethargic, moves all ext - Constitutional Vitals: Temp Pulse Resp BP Pulse Ox 97.6 F 94 H 20 137/104 96 04/24/21 08:08 04/24/21 08:08 04/24/21 08:08 04/24/21 08:08 04/24/21 08:08 HEART Score - HEART Score Age: < 45 Risk factors: 1-2 risk factors Troponin: Troponin T < 0.010 ng/mL (0.00-0.029) 04/23/21 10:49 Troponin: 1-3x normal limit - Critical Actions Critical Actions: 4-6 pts:12-16.6% risk of adverse cardiac event. Should be admitted Results - Labs CBC & Chem 7: 04/23/21 01:20 04/24/21 05:47 Labs: Laboratory Last Values WBC 5.8 K/mm3 (4.5-11.0) 04/23/21 01:20 RBC 6.16 M/mm3 (3.65-5.03) H 04/23/21 01:20 Hgb 13.9 gm/dl (10.1-14.3) 04/23/21 01:20 Hct 45.5 % (30.3-42.9) H 04/23/21 01:20 MCV 74 fl (79-97) L 04/23/21 01:20 MCH 23 pg (28-32) L 04/23/21 01:20 MCHC 31 % (30-34) 04/23/21 01:20 RDW 22.2 % (13.2-15.2) H 04/23/21 01:20 Plt Count 244 K/mm3 (140-440) 04/23/21 01:20 Lymph % (Auto) 45.7 % (13.4-35.0) H 04/23/21 01:20 [place] % (Auto) 9.1 % (0.0-7.3) H 04/23/21 01:20 Eos % (Auto) 1.2 % (0.0-4.3) 04/23/21 01:20 Baso % (Auto) 1.0 % (0.0-1.8) 04/23/21 01:20 Lymph # (Auto) 2.7 K/mm3 (1.2-5.4) 04/23/21 01:20 [place] # (Auto) 0.5 K/mm3 (0.0-0.8) 04/23/21 01:20 Eos # (Auto) 0.1 K/mm3 (0.0-0.4) 04/23/21 01:20 Baso # (Auto) 0.1 K/mm3 (0.0-0.1) 04/23/21 01:20 Seg Neutrophils % 43.0 % (40.0-70.0) 04/23/21 01:20 Seg Neutrophils # 2.5 K/mm3 (1.8-7.7) 04/23/21 01:20 Sodium 142 mmol/L (137-145) 04/24/21 05:47 Potassium 4.7 mmol/L (3.6-5.0) 04/24/21 05:47 Chloride 101.1 mmol/L (98-107) 04/24/21 05:47 Carbon Dioxide 27 mmol/L (22-30) 04/24/21 05:47 Anion Gap 19 mmol/L 04/24/21 05:47 BUN 26 mg/dL (7-17) H 04/24/21 05:47 Creatinine 1.2 mg/dL (0.6-1.2) 04/24/21 05:47 Estimated GFR > 60 ml/min 04/24/21 05:47 BUN/Creatinine Ratio 22 % 04/24/21 05:47 Glucose 102 mg/dL (65-100) H 04/24/21 05:47 Hemoglobin A1c 6.6 % (4-6) H 04/24/21 05:47 Lactic Acid 3.70 mmol/L (0.7-2.0) H* 04/24/21 13:10 Calcium 8.9 mg/dL (8.4-10.2) 04/24/21 05:47 Magnesium 2.10 mg/dL (1.7-2.3) 04/23/21 12:53 Total Bilirubin 1.80 mg/dL (0.1-1.2) H 04/23/21 01:20 AST 31 units/L (5-40) 04/23/21 01:20 ALT 31 units/L (7-56) 04/23/21 01:20 Alkaline Phosphatase 213 units/L (35-129) H 04/23/21 01:20 Total Creatine Kinase 59 units/L (30-135) 04/23/21 12:53 Troponin T < 0.010 ng/mL (0.00-0.029) 04/23/21 10:49 NT-Pro-B Natriuret Pep 5810 pg/mL (0-450) H 04/23/21 10:49 Total Protein 6.4 g/dL (6.3-8.2) 04/23/21 01:20 Albumin 3.7 g/dL (3.9-5) L 04/23/21 01:20 Albumin/Globulin Ratio 1.4 % 04/23/21 01:20 Lipase 21 units/L (13-60) 04/23/21 10:49 TSH 4.330 mlU/mL (0.270-4.200) H 04/23/21 12:53 HCG, Quant < 2 mIU/mL (0-4) 04/23/21 12:53 Salicylates 0.6 mg/dL (2.8-20.0) L 04/23/21 12:53 Acetaminophen 5.0 ug/mL (10.0-30.0) L 04/23/21 12:53 Plasma/Serum Alcohol < 0.01 % (0-0.07) 04/23/21 12:53 Microbiology: Microbiology 04/23/21 12:53 Peripheral/Venous Blood Culture - Preliminary NO GROWTH AFTER 24 HOURS 04/23/21 12:51 Peripheral/Venous Blood Culture - Preliminary NO GROWTH AFTER 24 HOURS Matta/IV: Voiding Method External Female Catheter Active Medications - Current Medications Current Medications: Generic Name Dose Route Start Last Admin Trade Name Freq PRN Reason Stop Dose Admin Acetaminophen 650 mg 04/24/21 01:58 Acetaminophen 325 Mg Tab PO Q4H PRN Pain MILD(1-3)/Fever >100.5/ADEN Carvedilol 3.125 mg 04/24/21 10:00 04/24/21 10:45 Carvedilol 3.125 Mg Tab PO 3.125 mg BID [facility] Administration Famotidine 20 mg 04/24/21 10:00 04/24/21 10:46 Famotidine 20 Mg Tab PO 20 mg QAM [facility] Administration Furosemide 40 mg 04/24/21 06:00 04/24/21 06:17 Furosemide 40 Mg/4 Ml Inj IV 40 mg 0600,1800 [facility] Administration Heparin Sodium (Porcine) 5,000 unit 04/24/21 02:15 04/24/21 10:47 Heparin 5,000 Unit/1 Ml Vial SUB-Q 5,000 unit Q12HR [facility] Administration Hydromorphone HCl 0.5 mg 04/24/21 01:58 Hydromorphone 1 Mg/1 Ml Inj IV Q3H PRN Pain , Severe (7-10) Losartan Potassium 50 mg 04/24/21 10:00 04/24/21 10:45 Losartan 50 Mg Tab PO 50 mg QDAY [facility] Administration Metoclopramide HCl 5 mg 04/24/21 01:58 Metoclopramide 10 Mg/2 Ml Inj IV Q6H PRN Nausea And Vomiting Nicotine 14 mg 04/24/21 10:00 04/24/21 10:46 Nicotine 14 Mg/24 Hr Patch TD 14 mg QDAY [facility] Administration Ondansetron HCl 4 mg 04/24/21 01:58 04/24/21 04:55 Ondansetron 4 Mg/2 Ml Inj IV 4 mg Q8H PRN Administration Nausea And Vomiting Oxycodone/Acetaminophen 1 tab 04/24/21 01:58 04/24/21 10:45 Oxycodone /Acetaminophen 5-325mg Tab PO 1 tab Q6H PRN Administration Pain, Moderate (4-6) Potassium Chloride 20 meq 04/24/21 02:00 04/24/21 10:47 Potassium Chloride Er 20 Meq Tab PO 20 meq Q12HR [facility] Administration Sodium Chloride 10 ml 04/24/21 10:00 04/24/21 10:46 Sodium Chloride 0.9% 10 Ml Flush Syringe IV 10 ml BID [facility] Administration Sodium Chloride 10 ml 04/24/21 01:58 Sodium Chloride 0.9% 10 Ml Flush Syringe IV PRN PRN LINE FLUSH Nutrition/Malnutrition Assess - Dietary Evaluation Nutrition/Malnutrition Findings: Nutrition Notes Start: 04/24/21 14:30 Freq: Status: Active Protocol: Document 04/24/21 14:30 (Rec: 04/24/21 14:33 [email or web address]) Nutrition Notes Need for Assessment generated from: MD Order Initial or Follow up Brief Note Current Diagnosis Acute Kidney Injury,Heart Failure,Respiratory Failure, Stroke Current Diet Cardiac Subjective/Other Information MD order for ONS. Pt reports no weight loss and eating 100% of meals. Pt mumbling and not talking much. Unsure of accuracy of pt report. Nutrition Intervention Follow-Up By: 04/26/21 Additional Comments FU for stable intakes
--- NOTE | 2021-04-24 16:08 | Consultation ---
History of Present Illness Consult date: 04/24/21 Requesting physician: JOSE RODRIGUEZ Consult reason: congestive heart failure History of present illness: This patient is a 35-year-old female with a significant history of heart failure, AMI plus CVA in 10/2020, hypertension, recent DVT plus PE 5 months ago, medical noncompliance, tobacco use, crack cocaine use. This patient is previously unknown to our practice she has been followed by [facility] in the past. Patient presents to [facility] with complaint of progressive weakness times several weeks and severe exhaustion with minimal exertion. Patient has been out of her anticoagulant and diuretic for several weeks. She states she is currently indigent and thus follow-up care has been a significant beto for her. She is currently prescribed Xarelto due to recent PE and DVT. Cardiology is consulted for heart failure. At time of interview patient is somnolent but denies dizziness, shortness of breath, chest pain, abdominal pain, N/V/D, recent illness or known exposures. BNP is noted to be elevated on admission along with elevated lactic acid of 5.5. Past History Past Medical History: other Medications and Allergies Allergies Allergy/AdvReac Type Severity Reaction Status Date / Time No Known Allergies Allergy Unverified 04/23/21 01:02 Active Meds: Active Medications Acetaminophen (Acetaminophen 325 Mg Tab) 650 mg PO Q4H PRN PRN Reason: Pain MILD(1-3)/Fever >100.5/ADEN Carvedilol (Carvedilol 3.125 Mg Tab) 3.125 mg PO BID [facility] Last Admin: 04/24/21 10:45 Dose: 3.125 mg Documented by: Famotidine (Famotidine 20 Mg Tab) 20 mg PO QAM [facility] Last Admin: 04/24/21 10:46 Dose: 20 mg Documented by: Furosemide (Furosemide 40 Mg/4 Ml Inj) 40 mg IV 0600,1800 [facility] Last Admin: 04/24/21 06:17 Dose: 40 mg Documented by: Heparin Sodium (Porcine) (Heparin 5,000 Unit/1 Ml Vial) 5,000 unit SUB-Q Q12HR [facility] Last Admin: 04/24/21 10:47 Dose: 5,000 unit Documented by: Hydromorphone HCl (Hydromorphone 1 Mg/1 Ml Inj) 0.5 mg IV Q3H PRN PRN Reason: Pain , Severe (7-10) Losartan Potassium (Losartan 50 Mg Tab) 50 mg PO QDAY [facility] Last Admin: 04/24/21 10:45 Dose: 50 mg Documented by: Metoclopramide HCl (Metoclopramide 10 Mg/2 Ml Inj) 5 mg IV Q6H PRN PRN Reason: Nausea And Vomiting Nicotine (Nicotine 14 Mg/24 Hr Patch) 14 mg TD QDAY [facility] Last Admin: 04/24/21 10:46 Dose: 14 mg Documented by: Ondansetron HCl (Ondansetron 4 Mg/2 Ml Inj) 4 mg IV Q8H PRN PRN Reason: Nausea And Vomiting Last Admin: 04/24/21 04:55 Dose: 4 mg Documented by: Oxycodone/Acetaminophen (Oxycodone /Acetaminophen 5-325mg Tab) 1 tab PO Q6H PRN PRN Reason: Pain, Moderate (4-6) Last Admin: 04/24/21 10:45 Dose: 1 tab Documented by: Potassium Chloride (Potassium Chloride Er 20 Meq Tab) 20 meq PO Q12HR [facility] Last Admin: 04/24/21 10:47 Dose: 20 meq Documented by: Sodium Chloride (Sodium Chloride 0.9% 10 Ml Flush Syringe) 10 ml IV BID [facility] Last Admin: 04/24/21 10:46 Dose: 10 ml Documented by: Sodium Chloride (Sodium Chloride 0.9% 10 Ml Flush Syringe) 10 ml IV PRN PRN PRN Reason: LINE FLUSH Review of Systems Constitutional: no weight loss, no weight gain, no fever, no chills, no sweats Ears, nose, mouth and throat: no ear pain, no ear discharge, no nose pain, no nasal congestion, no nasal discharge Cardiovascular: shortness of breath, dyspnea on exertion, decreased exercise tolerance, no chest pain, no orthopnea, no palpitations, no rapid/irregular heart beat, no edema, no syncope, no lightheadedness, no paroxysmal nocturnal dyspnea, no claudication, no phlebitis, no high blood pressure, no leg edema Respiratory: cough, dyspnea on exertion, no hemoptysis, no shortness of breath Gastrointestinal: no abdominal pain, no nausea, no vomiting, no diarrhea Genitourinary Female: no flank pain Musculoskeletal: no neck stiffness, no neck pain, no shooting arm pain, no arm numbness/tingling, no low back pain, no shooting leg pain Integumentary: no rash, no pruritis, no redness, no sores, no wounds Neurological: no head injury, no paralysis, no weakness, no parathesias, no numbness, no tingling, no seizures, no syncope Psychiatric: no anxiety Endocrine: no cold intolerance, no heat intolerance Hematologic/Lymphatic: no easy bruising, no easy bleeding Allergic/Immunologic: no urticaria Physical Examination Last Vital Signs Temp 97.6 F 04/24/21 08:08 Pulse 96 H 04/24/21 14:00 Resp 20 04/24/21 08:08 BP 137/104 04/24/21 08:08 Pulse Ox 96 04/24/21 08:08 General appearance: no acute distress HEENT: Positive: PERRL, Normocephaly, Mucus Membranes Moist Neck: Positive: neck supple, trachea midline Cardiac: Positive: Reg Rate and Rhythm, S1/S2 Lungs: Positive: Normal Exam, Normal Breath Sounds Neuro: Positive: Grossly Intact Abdomen: Positive: Unremarkable, Soft Musculoskeletal: No Pain Extremities: Present: upper extr. pulses, lower extr. pulses, edema, +1 Edema Results 04/24/21 16:24 04/24/21 16:24 Comprehensive Metabolic Panel 04/24/21 Range/Units 05:47 Sodium 142 (137-145) mmol/L Potassium 4.7 (3.6-5.0) mmol/L Chloride 101.1 (98-107) mmol/L Carbon Dioxide 27 (22-30) mmol/L BUN 26 H (7-17) mg/dL Creatinine 1.2 (0.6-1.2) mg/dL Glucose 102 H (65-100) mg/dL Calcium 8.9 (8.4-10.2) mg/dL - Imaging and Cardiology Echo: pending EKG: report reviewed, image reviewed EKG interpretations - Telemetry EKG Rhythm: Sinus Rhythm - EKG Sinus rhythms and dysrhythmias: sinus rhythm Assessment and Plan Heart failure with reduced ejection fraction in setting of dilated cardiomy opathy * Echocardiogram is pending. Preliminary suggests ejection fraction of 5 to 10% * Volume optimization: Agree with Lasix 40 IV twice daily. Anticipate weaning of IV diuretics tomorrow pending clinical course * Patient states she has been followed by [facility]. Will request records * Resume home medication regimen. Lisinopril 10 mg, Aldactone 25 mg, Coreg 12.5 mg, Xarelto 20 mg daily Anticoagulation in setting of recent DVT and PE * Recently hospitalized at [place] for DVT and PE 5 months prior. Will request records * Patient is prescribed Xarelto but has been out for several weeks. Resume Xarelto 20 mg daily. Coronary artery disease with history of AMI * Troponin is negative x2. AMI is ruled out Medical noncompliance * Patient is currently out of medications due to reported failure to follow-up with scheduled appointments. She reports she is currently indigent and without transportation which presents a significant beto to follow-up care efforts. DVT prophylaxis * Xarelto resumed. Discontinue heparin SQ Patient in guarded cardiac status. Echo pending. Will follow This patient was seen in conjunction with Dr Stearns who agrees with this assessment and plan of care
[2021-04-24 16:48] LABS: Mean Corpuscular HGB Conc 30 % (30-34); Mean Corpuscular Volume 76 fl (79-97); Platelet Count 264 K/mm3 (140-440); Red Blood Count 6.46 M/mm3 (3.65-5.03)
[2021-04-24 16:56] LABS: Hematocrit 48.8 % (30.3-42.9); Hemoglobin 14.7 gm/dl (10.1-14.3); Red Cell Distribution Width 22.5 % (13.2-15.2)
[2021-04-24 16:59] LABS: INR 1.3 (0.87-1.13)
[2021-04-24] MEDS: LISINOPRIL 10 MG TAB PO SCH (17:00)
[2021-04-24] MEDS: SPIRONOLACTONE 25 MG TAB PO SCH ×2 (17:00→17:25)
[2021-04-24] MEDS: RIVAROXABAN 20 MG TAB PO SCH (17:25)
[2021-04-24] MEDS: carvediloL 12.5 MG TAB PO SCH (23:49)
[2021-04-25 05:55] LABS: Mean Corpuscular HGB Conc 30 % (30-34); Mean Corpuscular Volume 74 fl (79-97); Platelet Count 263 K/mm3 (140-440); Red Blood Count 6.09 M/mm3 (3.65-5.03)
[2021-04-25 06:08] LABS: Hemoglobin 13.6 gm/dl (10.1-14.3)
[2021-04-25 06:09] LABS: Hematocrit 45.2 % (30.3-42.9); Red Cell Distribution Width 21.6 % (13.2-15.2)
[2021-04-25 06:20] LABS: Alanine Aminotransferase 24 units/L (7-56); Albumin 3.1 g/dL (3.9-5); BUN/Creatinine Ratio 22; Blood Urea Nitrogen 26 mg/dL (7-17); Hemolysis Index 20
[2021-04-25] MEDS: FUROSEMIDE 40 MG/4 ML INJ IV SCH (06:29)
--- NOTE | 2021-04-25 10:03 | Ultrasound Report ---
Ultrasound chest INDICATION: Pleural effusions FINDINGS: Large pleural effusion the right chest with a volume of 663 mm. Left chest pleural fluid vo lume 19.6 mm IMPRESSION: Bilateral pleural effusions Signer Name: Hung Culver MD Signed: 04/25/2021 9:56 AM Workstation Name: [id number]
[2021-04-25] MEDS: ASPIRIN 81 MG TAB CHEW PO SCH (10:19)
[2021-04-25] MEDS: NICOTINE 14 MG/24 HR PATCH TD SCH (10:20)
[2021-04-25] MEDS: RIVAROXABAN 20 MG TAB PO SCH (10:21)
[2021-04-25] MEDS: FAMOTIDINE 20 MG TAB PO SCH (10:21)
[2021-04-25] MEDS: POTASSIUM CHLORIDE ER 20 MEQ TAB PO SCH ×2 (10:21→21:15)
[2021-04-25] MEDS: LISINOPRIL 10 MG TAB PO SCH (10:22)
[2021-04-25] MEDS: carvediloL 12.5 MG TAB PO SCH ×2 (10:23→21:15)
[2021-04-25] MEDS: SPIRONOLACTONE 25 MG TAB PO SCH (10:23)
--- NOTE | 2021-04-25 10:25 | Progress Note ---
Assessment and Plan Heart failure with reduced ejection fraction in setting of dilated cardiomyopathy * Echocardiogram reviewed (04/24/2021): LVEF is 10%. Left ventricle is severely dilated. Severe global hypokinesis of the left ventricle. Transmitral Doppler flow pattern suggests restrictive physiology. RV is mildly dilated. LA is severely dilated. RVSP is 27 mmHg. Moderate TR. * Patient appears to be near euvolemia. Volume optimization: Convert IV Lasix to torsemide 20mg p.o. BID. * Patient states she has been followed by [facility]. Records requested. * Continue goal directed therapy with carioprotective regimen: Lisinopril 10 mg, Aldactone 25 mg, Coreg 12.5 mg, Xarelto 20 mg daily Anticoagulation in setting of recent DVT and PE * Recently hospitalized at [place] for DVT and PE 5 months prior. Records requested. * Continue Xarelto Coronary artery disease with history of AMI * Troponin is negative x2. AMI is ruled out Medical noncompliance * Patient is currently out of medications due to reported failure to follow-up with scheduled appointments. She reports she is currently indigent and without transportation which presents a significant beto to follow-up care efforts. DVT prophylaxis * Xarelto Patient is in stable cardiac status and near euvolemia. Diuretics converted to p.o. in anticipation of discharge. Patient will need to follow-up with [facility] within 1 to 2 weeks of discharge. Will follow This patient was seen in conjunction with Dr Stearns who agrees with this assessment and plan of care Subjective Date of service: 04/25/21 Principal diagnosis: HFrEF Interval history: Patient resting comfortably in bed. No shortness of breath or chest pain overnight Telemetry reviewed: Sinus rhythm 98. No events Objective Last Vital Signs Temp 98.6 F 04/25/21 07:58 Pulse 82 04/25/21 03:54 Resp 18 04/25/21 07:58 BP 93/61 04/25/21 07:58 Pulse Ox 94 04/25/21 03:54 - Physical Examination HEENT: Positive: PERRL, Normocephaly, Mucus Membranes Moist Neck: Positive: neck supple, trachea midline Cardiac: Positive: Reg Rate and Rhythm, S1/S2 Lungs: Positive: Normal Exam, Normal Breath Sounds Neuro: Positive: Grossly Intact Abdomen: Positive: Unremarkable, Soft Musculoskeletal: No Pain Extremities: Present: upper extr. pulses, lower extr. pulses, edema, +1 Edema - Labs and Meds Cardiac Enzymes 04/25/21 Range/Units 05:30 AST 27 (5-40) units/L Coagulation 04/24/21 Range/Units 16:24 PT 16.8 H (12.2-14.9) Sec. INR 1.30 H (0.87-1.13) APTT 28.0 (24.2-36.6) Sec. CBC 04/24/21 04/25/21 Range/Units 16:24 05:30 WBC 8.4 7.5 (4.5-11.0) K/mm3 RBC 6.46 H 6.09 H (3.65-5.03) M/mm3 Hgb 14.7 H 13.6 (10.1-14.3) gm/dl Hct 48.8 H 45.2 H (30.3-42.9) % Plt Count 264 263 (140-440) K/mm3 Comprehensive Metabolic Panel 04/24/21 04/25/21 Range/Units 16:24 05:30 Sodium 139 (137-145) mmol/L Potassium 4.4 (3.6-5.0) mmol/L Chloride 101.2 (98-107) mmol/L Carbon Dioxide 25 (22-30) mmol/L BUN 26 H (7-17) mg/dL Creatinine 1.2 1.2 (0.6-1.2) mg/dL Glucose 67 (65-100) mg/dL Calcium 9.0 (8.4-10.2) mg/dL AST 27 (5-40) units/L ALT 24 (7-56) units/L Alkaline Phosphatase 202 H (35-129) units/L Total Protein 5.8 L (6.3-8.2) g/dL Albumin 3.1 L (3.9-5) g/dL - Imaging and Cardiology EKG: report reviewed, image reviewed Echo: pending - Telemetry EKG Rhythm: Sinus Rhythm - EKG Sinus rhythms and dysrhythmias: sinus rhythm
--- NOTE | 2021-04-25 11:21 | Progress Note ---
Assessment and Plan Assessment and plan: Acute respiratory failure with hypoxia Hypoxia secondary to CHF and bilateral pleural effusion IV Lasix Acute exacerbation of CHF (congestive heart failure) Echocardiogram shows EF 10% IV Lasix every 12 hours Daily weights and intake and output BNP is high Cardiology consulted and he has been evaluated Hypertension Continue antihypertensives Nicotine dependence Patient counseled and started on NicoDerm patches SUSHANT (acute kidney injury) Secondary to vasomotor nephropathy Improving DVT prophylaxis On heparin and GI prophylaxis Elevated Lactic acid. No signs or symptoms of sepsis 04/24/21 Patient admitted yesterday for acute respiratory failure due to CHF exacerbation and bilateral pleural effusion. Continue supplemental Oxygen. Cardiology and Pulmonology consulted. 04/25/21 Patient with acute respiratory failure due to acute on chronic systolic CHF and bilateral pleural effusions. Echo shows EF 10%. She usually goes to cardiology in [place]. She also has bilateral pleural effusions, followed here by Pulmonology. I discussed with cardiology. History Interval history: Shortness of breath improved small wound left big toe Hospitalist Physical - Physical exam Narrative exam: Gen: Not in acute distress, lying in bed HEENT: Normochephalic, atraumatic Neck:supple, No JVD Lungs: Bilateral basal rales, decreased breath sounds both bases Heart:S1 and S2 reg, no murmurs, rubs or gallop Abd: soft, non tender, non distended, normal bowel sounds Ext: Bilateral pitting pedal edema, no clubbing, no cyanosis Neuro: Awake,alert,oriented x 3 - Constitutional Vitals: Temp Pulse Resp BP Pulse Ox 98.6 F 85 18 114/81 94 04/25/21 07:58 04/25/21 10:23 04/25/21 07:58 04/25/21 10:23 04/25/21 03:54 General appearance: Present: no acute distress HEART Score - HEART Score Age: < 45 Risk factors: 1-2 risk factors Troponin: Troponin T < 0.010 ng/mL (0.00-0.029) 04/23/21 10:49 Troponin: 1-3x normal limit - Critical Actions Critical Actions: 4-6 pts:12-16.6% risk of adverse cardiac event. Should be admitted Results - Labs CBC & Chem 7: 04/25/21 05:30 04/25/21 05:30 Labs: Laboratory Last Values WBC 7.5 K/mm3 (4.5-11.0) 04/25/21 05:30 RBC 6.09 M/mm3 (3.65-5.03) H 04/25/21 05:30 Hgb 13.6 gm/dl (10.1-14.3) 04/25/21 05:30 Hct 45.2 % (30.3-42.9) H 04/25/21 05:30 MCV 74 fl (79-97) L 04/25/21 05:30 MCH 22 pg (28-32) L 04/25/21 05:30 MCHC 30 % (30-34) 04/25/21 05:30 RDW 21.6 % (13.2-15.2) H 04/25/21 05:30 Plt Count 263 K/mm3 (140-440) 04/25/21 05:30 Lymph % (Auto) 45.7 % (13.4-35.0) H 04/23/21 01:20 [place] % (Auto) 9.1 % (0.0-7.3) H 04/23/21 01:20 Eos % (Auto) 1.2 % (0.0-4.3) 04/23/21 01:20 Baso % (Auto) 1.0 % (0.0-1.8) 04/23/21 01:20 Lymph # (Auto) 2.7 K/mm3 (1.2-5.4) 04/23/21 01:20 [place] # (Auto) 0.5 K/mm3 (0.0-0.8) 04/23/21 01:20 Eos # (Auto) 0.1 K/mm3 (0.0-0.4) 04/23/21 01:20 Baso # (Auto) 0.1 K/mm3 (0.0-0.1) 04/23/21 01:20 Seg Neutrophils % 43.0 % (40.0-70.0) 04/23/21 01:20 Seg Neutrophils # 2.5 K/mm3 (1.8-7.7) 04/23/21 01:20 PT 16.8 Sec. (12.2-14.9) H 04/24/21 16:24 INR 1.30 (0.87-1.13) H 04/24/21 16:24 APTT 28.0 Sec. (24.2-36.6) 04/24/21 16:24 Sodium 139 mmol/L (137-145) 04/25/21 05:30 Potassium 4.4 mmol/L (3.6-5.0) 04/25/21 05:30 Chloride 101.2 mmol/L (98-107) 04/25/21 05:30 Carbon Dioxide 25 mmol/L (22-30) 04/25/21 05:30 Anion Gap 17 mmol/L 04/25/21 05:30 BUN 26 mg/dL (7-17) H 04/25/21 05:30 Creatinine 1.2 mg/dL (0.6-1.2) 04/25/21 05:30 Estimated GFR > 60 ml/min 04/25/21 05:30 BUN/Creatinine Ratio 22 % 04/25/21 05:30 Glucose 67 mg/dL (65-100) 04/25/21 05:30 POC Glucose 107 mg/dL (70-105) H 04/24/21 21:22 Hemoglobin A1c 6.6 % (4-6) H 04/24/21 05:47 Lactic Acid 3.70 mmol/L (0.7-2.0) H* 04/24/21 13:10 Calcium 9.0 mg/dL (8.4-10.2) 04/25/21 05:30 Magnesium 1.90 mg/dL (1.7-2.3) 04/25/21 05:30 Total Bilirubin 1.20 mg/dL (0.1-1.2) 04/25/21 05:30 AST 27 units/L (5-40) 04/25/21 05:30 ALT 24 units/L (7-56) 04/25/21 05:30 Alkaline Phosphatase 202 units/L (35-129) H 04/25/21 05:30 Total Creatine Kinase 59 units/L (30-135) 04/23/21 12:53 Troponin T < 0.010 ng/mL (0.00-0.029) 04/23/21 10:49 NT-Pro-B Natriuret Pep 5810 pg/mL (0-450) H 04/23/21 10:49 Total Protein 5.8 g/dL (6.3-8.2) L 04/25/21 05:30 Albumin 3.1 g/dL (3.9-5) L 04/25/21 05:30 Albumin/Globulin Ratio 1.1 % 04/25/21 05:30 Lipase 21 units/L (13-60) 04/23/21 10:49 TSH 4.330 mlU/mL (0.270-4.200) H 04/23/21 12:53 HCG, Quant < 2 mIU/mL (0-4) 04/23/21 12:53 Salicylates 0.6 mg/dL (2.8-20.0) L 04/23/21 12:53 Acetaminophen 5.0 ug/mL (10.0-30.0) L 04/23/21 12:53 Plasma/Serum Alcohol < 0.01 % (0-0.07) 04/23/21 12:53 Microbiology: Microbiology 04/23/21 12:53 Peripheral/Venous Blood Culture - Preliminary NO GROWTH AFTER 24 HOURS 04/23/21 12:51 Peripheral/Venous Blood Culture - Preliminary NO GROWTH AFTER 24 HOURS Matta/IV: Voiding Method Toilet Active Medications - Current Medications Current Medications: Generic Name Dose Route Start Last Admin Trade Name Freq PRN Reason Stop Dose Admin Acetaminophen 650 mg 04/24/21 01:58 Acetaminophen 325 Mg Tab PO Q4H PRN Pain MILD(1-3)/Fever >100.5/ADEN Aspirin 81 mg 04/25/21 10:00 04/25/21 10:19 Aspirin 81 Mg Tab Chew PO 81 mg QDAY BASSEM Administration Carvedilol 12.5 mg 04/24/21 22:00 04/25/21 10:23 Carvedilol 12.5 Mg Tab PO 12.5 mg BID BASSEM Administration Famotidine 20 mg 04/24/21 10:00 04/25/21 10:21 Famotidine 20 Mg Tab PO 20 mg QAM BASSEM Administration Furosemide 40 mg 04/24/21 06:00 04/25/21 06:29 Furosemide 40 Mg/4 Ml Inj IV 40 mg 0600,1800 BASSEM Administration Hydromorphone HCl 0.5 mg 04/24/21 01:58 Hydromorphone 1 Mg/1 Ml Inj IV Q3H PRN Pain , Severe (7-10) Lisinopril 10 mg 04/24/21 17:00 04/25/21 10:22 Lisinopril 10 Mg Tab PO 10 mg QDAY BASSEM Administration Metoclopramide HCl 5 mg 04/24/21 01:58 Metoclopramide 10 Mg/2 Ml Inj IV Q6H PRN Nausea And Vomiting Nicotine 14 mg 04/24/21 10:00 04/25/21 10:20 Nicotine 14 Mg/24 Hr Patch TD 14 mg QDAY BASSEM Administration Ondansetron HCl 4 mg 04/24/21 01:58 04/24/21 04:55 Ondansetron 4 Mg/2 Ml Inj IV 4 mg Q8H PRN Administration Nausea And Vomiting Oxycodone/Acetaminophen 1 tab 04/24/21 01:58 04/24/21 21:32 Oxycodone /Acetaminophen 5-325mg Tab PO 1 tab Q6H PRN Administration Pain, Moderate (4-6) Potassium Chloride 20 meq 04/24/21 02:00 04/25/21 10:21 Potassium Chloride Er 20 Meq Tab PO 20 meq Q12HR BASSEM Administration Rivaroxaban 20 mg 04/24/21 17:00 04/25/21 10:21 Rivaroxaban 20 Mg Tab PO 20 mg DAILY BASSEM Administration Protocol Sodium Chloride 10 ml 04/24/21 10:00 04/25/21 10:22 Sodium Chloride 0.9% 10 Ml Flush Syringe IV 10 ml BID BASSEM Administration Sodium Chloride 10 ml 04/24/21 01:58 04/25/21 06:29 Sodium Chloride 0.9% 10 Ml Flush Syringe IV 10 ml PRN PRN Administration LINE FLUSH Spironolactone 25 mg 04/24/21 17:00 04/25/21 10:23 Spironolactone 25 Mg Tab PO 25 mg QDAY BASSEM Administration Nutrition/Malnutrition Assess - Dietary Evaluation Nutrition/Malnutrition Findings: Nutrition Notes Start: 04/24/21 14:30 Freq: Status: Active Protocol: Document 04/24/21 14:30 MICHELE (Rec: 04/24/21 14:33 MICHELE [email or web address]) Nutrition Notes Need for Assessment generated from: MD Order Initial or Follow up Brief Note Current Diagnosis Acute Kidney Injury,Heart Failure,Respiratory Failure, Stroke Current Diet Cardiac Subjective/Other Information MD order for ONS. Pt reports no weight loss and eating 100% of meals. Pt mumbling and not talking much. Unsure of accuracy of pt report. Nutrition Intervention Follow-Up By: 04/26/21 Additional Comments FU for stable intakes
--- NOTE | 2021-04-25 14:50 | Progress Note ---
Assessment and Plan Acute hypoxemic respiratory failure Acute exacerbation of CHF Bilateral Pleural effusions Cardiorenal syndrome with renal failure Hypertension Nicotine dependence - thoracentesis of right pleural effusion ordered - continue care as below otherwise; - continue diuresis - continue anticoagulation protocol per cardiology rec's - continue to wean supplemental oxygen to keep O2 sats > 90% - bronchodilators (BISHNU) with pulm hygiene per RT - avoid nephrotoxins, renally dose all medications - mobility protocols to prevent pressure ulcers - PT/OT as tolerated - prn analgesia per pain score - Wound care per RN/WCT - continue accuchecks with glycemic control per SSI for target blood glucose < 180 mg/dL - Smoking cessation strongly counseled at the bedside (continue replacement therapy) - home oxygen evaluation at discharge - GI & VTE prophylaxis - Flu & pneumovax per protocol - Pulmonary out patient follow up for PFTs and optimization of respiratory status - continue other care per attending / other consultants ... re-evaluate in am & prn Subjective Date of service: 04/25/21 Principal diagnosis: Ac hypoxemic resp failure; AE-CHF; Pleural effusions; Cardiorenal syndrome Interval history: Patient is seen today for: Acute hypoxemic respiratory failure; AE-CHF; Bilateral Pleural effusions; Cardiorenal syndrome; HTN; SUSHANT; Nicotine dependence Seen and examined at bedside; 24hour events reviewed; nursing and respiratory care staff consulted; no adverse overnight events reported to me; resting peacefully in bed; feels a little better; states that she had a thoracentesis done earlier this year but does not remember where; remains on supplemental oxygen; good diuresis Objective Vital Signs - 12hr 04/25/21 04/25/21 04/25/21 03:54 07:58 10:19 Temperature 97.2 F L 98.6 F Pulse Rate 82 85 Respiratory 20 18 Rate Blood Pressure 110/68 93/61 114/81 O2 Sat by Pulse 94 94 Oximetry 04/25/21 10:23 Temperature Pulse Rate 85 Respiratory Rate Blood Pressure 114/81 O2 Sat by Pulse Oximetry Constitutional: no acute distress, other (young female with mildly increased respiratory effort at rest) Eyes: non-icteric ENT: oropharynx moist Neck: supple, no JVD Effort: mildly labored Ascultation: Bilateral: rhonchi (bases) Percussion: Right: dull (RLL region) Cardiovascular: regular rate and rhythm Gastrointestinal: normoactive bowel sounds, soft, non-tender, non-distended Integumentary: normal Extremities: no cyanosis, no edema, pulses normal, no ischemia or petechiae Neurologic: non-focal exam, pupils equal and round, CN II-XII normal, motor strength normal and Psychiatric: mood appropriate, affect normal CBC and BMP: 04/25/21 05:30 04/25/21 05:30 ABG, PT/INR, D-dimer: PT/INR, D-dimer PT 16.8 Sec. (12.2-14.9) H 04/24/21 16:24 INR 1.30 (0.87-1.13) H 04/24/21 16:24 Abnormal lab findings: Abnormal Labs 04/23/21 04/23/21 04/23/21 01:20 01:20 10:49 RBC 6.16 H Hgb Hct 45.5 H MCV 74 L MCH 23 L RDW 22.2 H Lymph % (Auto) 45.7 H [place] % (Auto) 9.1 H PT INR BUN 28 H Creatinine 1.4 H Glucose POC Glucose Hemoglobin A1c Lactic Acid Total Bilirubin 1.80 H Alkaline Phosphatase 213 H NT-Pro-B Natriuret Pep 5810 H Total Protein Albumin 3.7 L TSH Salicylates Acetaminophen 04/23/21 04/23/21 04/23/21 12:53 12:53 12:53 RBC Hgb Hct MCV MCH RDW Lymph % (Auto) [place] % (Auto) PT INR BUN Creatinine Glucose POC Glucose Hemoglobin A1c Lactic Acid 3.00 H* Total Bilirubin Alkaline Phosphatase NT-Pro-B Natriuret Pep Total Protein Albumin TSH 4.330 H Salicylates 0.6 L Acetaminophen 04/23/21 04/24/21 04/24/21 12:53 00:00 05:47 RBC Hgb Hct MCV MCH RDW Lymph % (Auto) [place] % (Auto) PT INR BUN Creatinine Glucose POC Glucose Hemoglobin A1c Lactic Acid 5.50 H* 3.40 H* Total Bilirubin Alkaline Phosphatase NT-Pro-B Natriuret Pep Total Protein Albumin TSH Salicylates Acetaminophen 5.0 L 04/24/21 04/24/21 04/24/21 05:47 05:47 13:10 RBC Hgb Hct MCV MCH RDW Lymph % (Auto) [place] % (Auto) PT INR BUN 26 H Creatinine Glucose 102 H POC Glucose Hemoglobin A1c 6.6 H Lactic Acid 3.70 H* Total Bilirubin Alkaline Phosphatase NT-Pro-B Natriuret Pep Total Protein Albumin TSH Salicylates Acetaminophen 04/24/21 04/24/21 04/24/21 16:24 16:24 21:22 RBC 6.46 H Hgb 14.7 H Hct 48.8 H MCV 76 L MCH 23 L RDW 22.5 H Lymph % (Auto) [place] % (Auto) PT 16.8 H INR 1.30 H BUN Creatinine Glucose POC Glucose 107 H Hemoglobin A1c Lactic Acid Total Bilirubin Alkaline Phosphatase NT-Pro-B Natriuret Pep Total Protein Albumin TSH Salicylates Acetaminophen 04/25/21 04/25/21 05:30 05:30 RBC 6.09 H Hgb Hct 45.2 H MCV 74 L MCH 22 L RDW 21.6 H Lymph % (Auto) [place] % (Auto) PT INR BUN 26 H Creatinine Glucose POC Glucose Hemoglobin A1c Lactic Acid Total Bilirubin Alkaline Phosphatase 202 H NT-Pro-B Natriuret Pep Total Protein 5.8 L Albumin 3.1 L TSH Salicylates Acetaminophen Additional Studies: US chest shows large right pleural effusion Allied health notes reviewed: nursing
[2021-04-25 15:36] LABS: Anisocytosis Few; Hypochromasia 1+; Platelet Estimate Consistent w Auto; Target Cells 1+; Total Cells Counted 100
[2021-04-25] MEDS: cephALEXin 500 MG CAP PO SCH ×2 (16:34→21:19)
[2021-04-25] MEDS: TORSEMIDE 10 MG TAB PO SCH (17:02)
[2021-04-25] MEDS: oxyCODONE /ACETAMINOPHEN 5-325MG TAB PO PRN (21:15)
[2021-04-26 06:38] LABS: Mean Corpuscular HGB Conc 31 % (30-34); Mean Corpuscular Volume 74 fl (79-97); Platelet Count 237 K/mm3 (140-440); Red Blood Count 6.08 M/mm3 (3.65-5.03)
[2021-04-26] MEDS: TORSEMIDE 10 MG TAB PO SCH (06:38)
[2021-04-26 06:40] LABS: Hematocrit 45.1 % (30.3-42.9); Red Cell Distribution Width 21.6 % (13.2-15.2)
[2021-04-26 07:33] LABS: Calcium 9.1 mg/dL (8.4-10.2)
[2021-04-26] MEDS ORDERED: SODIUM POLYSTYRENE 15 GM/60 ML ORAL LIQD PO SCH (08:00)
[2021-04-26] MEDS ORDERED: cloNIDine 0.1 MG TAB PO ONE (09:00)
--- NOTE | 2021-04-26 09:33 | Progress Note ---
Assessment and Plan Heart failure with reduced ejection fraction in setting of dilated cardiomyopathy * Echocardiogram reviewed (04/24/2021): LVEF is 10%. Left ventricle is severely dilated. Severe global hypokinesis of the left ventricle. Transmitral Doppler flow pattern suggests restrictive physiology. RV is mildly dilated. LA is severely dilated. RVSP is 27 mmHg. Moderate TR. * Patient appears to be near euvolemia. Continue Aldactone 25 mg * Patient states she has been followed by [facility] [place] [facility]. Records requested. * Continue goal directed therapy with cadrioprotective regimen: ASA, Coreg 12.5 mg. * Blood pressure is significantly elevated this a.m. Give clonidine 0.1 mg p.o. once and retake vital signs Anticoagulation in setting of recent DVT and PE * Recently hospitalized at [facility] for DVT and PE 5 months prior. Records requested. * Continue Xarelto 20mg PO Daily Coronary artery disease with history of AMI * Troponin is negative x2. AMI is ruled out Acute kidney injury * Hold Lasix and discontinue lisinopril. No SAM/ARB in setting of SUSHANT. Avoid nephrotoxic agents. Once SUSHANT is resolved plan to resume lisinopril as part of goal-directed therapy in the setting of severe dilated cardiomyopathy Medical noncompliance * Patient is currently out of medications due to reported failure to follow-up with scheduled appointments. She reports she is currently indigent and without transportation which presents a significant beto to follow-up care efforts. DVT prophylaxis * Xarelto Patient is in stable cardiac status and near euvolemia. Diuretics being held today in setting of SUSHANT. Will restart prior to discharge once SUSHANT is resolved. Will follow Patient will need to follow-up with [facility] within 1 to 2 weeks of discharge. This patient was seen in conjunction with Dr Stearns who agrees with this assessment and plan of care Subjective Date of service: 04/26/21 Principal diagnosis: Ac hypoxemic resp failure; AE-CHF; Pleural effusions; Cardiorenal syndrome Interval history: Patient resting comfortably in bed. No shortness of breath or chest pain overnight Telemetry reviewed: Sinus rhythm 93. No events Objective Last Vital Signs Temp 98.2 F 04/26/21 07:50 Pulse 83 04/26/21 07:50 Resp 19 04/26/21 07:50 BP 88/67 04/26/21 07:50 Pulse Ox 100 04/26/21 07:50 - Physical Examination General: Appears Well HEENT: Positive: PERRL, Normocephaly, Mucus Membranes Moist Neck: Positive: neck supple, trachea midline Cardiac: Positive: Reg Rate and Rhythm, S1/S2 Lungs: Positive: Decreased Breath Sounds Neuro: Positive: Grossly Intact Abdomen: Positive: Unremarkable, Soft Skin: Negative: Rash, Wound Musculoskeletal: No Pain Extremities: Present: upper extr. pulses, lower extr. pulses. Absent: edema - Labs and Meds Cardiac Enzymes 04/25/21 Range/Units 05:30 Lactate Dehydrogenase 392 H (91-180) units/L CBC 04/26/21 Range/Units 06:15 WBC 6.3 (4.5-11.0) K/mm3 RBC 6.08 H (3.65-5.03) M/mm3 Hgb 14.0 (10.1-14.3) gm/dl Hct 45.1 H (30.3-42.9) % Plt Count 237 (140-440) K/mm3 Comprehensive Metabolic Panel 04/26/21 Range/Units 06:15 Sodium 136 L (137-145) mmol/L Potassium 5.6 H D (3.6-5.0) mmol/L Chloride 98.6 (98-107) mmol/L Carbon Dioxide 26 (22-30) mmol/L BUN 25 H (7-17) mg/dL Creatinine 1.5 H (0.6-1.2) mg/dL Glucose 85 (65-100) mg/dL Calcium 9.1 (8.4-10.2) mg/dL - Imaging and Cardiology EKG: report reviewed, image reviewed Echo: report reviewed - Telemetry EKG Rhythm: Sinus Rhythm - EKG Sinus rhythms and dysrhythmias: sinus rhythm - Allied health notes Allied health notes reviewed: nursing
[2021-04-26] MEDS: SPIRONOLACTONE 25 MG TAB PO SCH (10:00)
--- NOTE | 2021-04-26 10:16 | Procedure Note ---
Date of procedure: 04/26/21 Pre-op diagnosis: left pleural effusion Post-op diagnosis: same Procedure: US thoracentesis, left Findings: moderate left pleural effusion Anesthesia: local Surgeon: MARIA TERESA HOBBS Estimated blood loss: none Pathology: list (120cc) Specimen disposition: to lab Condition: stable Disposition: floor
--- NOTE | 2021-04-26 11:12 | Progress Note ---
Assessment and Plan Assessment and plan: Acute respiratory failure with hypoxia Hypoxia secondary to CHF and bilateral pleural effusion IV Lasix Acute exacerbation of CHF (congestive heart failure) Echocardiogram shows EF 10% IV Lasix every 12 hours Daily weights and intake and output BNP is high Cardiology consulted and he has been evaluated Hypertension Continue antihypertensives Nicotine dependence Patient counseled and started on NicoDerm patches SUSHANT (acute kidney injury) Secondary to vasomotor nephropathy Improving DVT prophylaxis On heparin and GI prophylaxis Hyperkalemia Gave Kayexalate SUSHANT Cr 1.5 on 04/26 Hold diuretics, recheck in am Elevated Lactic acid. No signs or symptoms of sepsis 04/24/21 Patient admitted yesterday for acute respiratory failure due to CHF exacerbation and bilateral pleural effusion. Continue supplemental Oxygen. Cardiology and Pulmonology consulted. 04/25/21 Patient with acute respiratory failure due to acute on chronic systolic CHF and bilateral pleural effusions. Echo shows EF 10%. She also has bilateral pleural effusions, followed here by Pulmonology. I discussed with cardiology. 04/26/21 Patient with acute respiratory failure due to acute on chronic systolic CHF and bilateral pleural effusions. She had thoracentesis today for moderate left pleural effusion. She tells me she does not have a PCP or Banking Officer. She was seen at [place] last time but does not have a Primary Banking Officer. Today Cr 1.5 therefore hold Torsemide, repeat in am. Also Potassium 5.6, ordered Kayexalate. History Interval history: Shortness of breath improved no chest pain She does not have a PCP or primary Banking Officer small wound left big toe Hospitalist Physical - Physical exam Narrative exam: Gen: Not in acute distress, lying in bed HEENT: Normochephalic, atraumatic Neck:supple, No JVD Lungs: Bilateral basal rales, decreased breath sounds both bases Heart:S1 and S2 reg, no murmurs, rubs or gallop Abd: soft, non tender, non distended, normal bowel sounds Ext: Bilateral pitting pedal edema, no clubbing, no cyanosis, small healing wound left 1st toe Neuro: Awake,alert,oriented x 3 - Constitutional Vitals: Temp Pulse Resp BP Pulse Ox 98.2 F 83 19 88/67 100 04/26/21 07:50 04/26/21 07:50 04/26/21 07:50 04/26/21 07:50 04/26/21 07:50 General appearance: Present: no acute distress HEART Score - HEART Score Age: < 45 Risk factors: 1-2 risk factors Troponin: Troponin T < 0.010 ng/mL (0.00-0.029) 04/23/21 10:49 Troponin: 1-3x normal limit - Critical Actions Critical Actions: 4-6 pts:12-16.6% risk of adverse cardiac event. Should be admitted Results - Labs CBC & Chem 7: 04/26/21 06:15 04/26/21 06:15 Labs: Laboratory Last Values WBC 6.3 K/mm3 (4.5-11.0) 04/26/21 06:15 RBC 6.08 M/mm3 (3.65-5.03) H 04/26/21 06:15 Hgb 14.0 gm/dl (10.1-14.3) 04/26/21 06:15 Hct 45.1 % (30.3-42.9) H 04/26/21 06:15 MCV 74 fl (79-97) L 04/26/21 06:15 MCH 23 pg (28-32) L 04/26/21 06:15 MCHC 31 % (30-34) 04/26/21 06:15 RDW 21.6 % (13.2-15.2) H 04/26/21 06:15 Plt Count 237 K/mm3 (140-440) 04/26/21 06:15 Lymph % (Auto) 45.7 % (13.4-35.0) H 04/23/21 01:20 Bennett % (Auto) 9.1 % (0.0-7.3) H 04/23/21 01:20 Eos % (Auto) 1.2 % (0.0-4.3) 04/23/21 01:20 Baso % (Auto) 1.0 % (0.0-1.8) 04/23/21 01:20 Lymph # (Auto) 2.7 K/mm3 (1.2-5.4) 04/23/21 01:20 Bennett # (Auto) 0.5 K/mm3 (0.0-0.8) 04/23/21 01:20 Eos # (Auto) 0.1 K/mm3 (0.0-0.4) 04/23/21 01:20 Baso # (Auto) 0.1 K/mm3 (0.0-0.1) 04/23/21 01:20 Add Manual Diff Complete 04/25/21 05:30 Total Counted 100 04/25/21 05:30 Seg Neutrophils % 43.0 % (40.0-70.0) 04/23/21 01:20 Seg Neuts % (Manual) 52.0 % (40.0-70.0) 04/25/21 05:30 Lymphocytes % (Manual) 36.0 % (13.4-35.0) H 04/25/21 05:30 Monocytes % (Manual) 7.0 % (0.0-7.3) 04/25/21 05:30 Eosinophils % (Manual) 2.0 % (0.0-4.3) 04/25/21 05:30 Basophils % (Manual) 3.0 % (0.0-1.8) H 04/25/21 05:30 Nucleated RBC % 1.0 % (0.0-0.9) H 04/25/21 05:30 Seg Neutrophils # 2.5 K/mm3 (1.8-7.7) 04/23/21 01:20 Seg Neutrophils # Man 3.9 K/mm3 (1.8-7.7) 04/25/21 05:30 Band Neutrophils # 0.0 K/mm3 04/25/21 05:30 Lymphocytes # (Manual) 2.7 K/mm3 (1.2-5.4) 04/25/21 05:30 Abs React Lymphs (Man) 0.0 K/mm3 04/25/21 05:30 Monocytes # (Manual) 0.5 K/mm3 (0.0-0.8) 04/25/21 05:30 Eosinophils # (Manual) 0.2 K/mm3 (0.0-0.4) 04/25/21 05:30 Basophils # (Manual) 0.2 K/mm3 (0.0-0.1) H 04/25/21 05:30 Metamyelocytes # 0.0 K/mm3 04/25/21 05:30 Myelocytes # 0.0 K/mm3 04/25/21 05:30 Promyelocytes # 0.0 K/mm3 04/25/21 05:30 Blast Cells # 0.0 K/mm3 04/25/21 05:30 WBC Morphology Not Reportable 04/25/21 05:30 Hypersegmented Neuts Not Reportable 04/25/21 05:30 Hyposegmented Neuts Not Reportable 04/25/21 05:30 Hypogranular Neuts Not Reportable 04/25/21 05:30 Smudge Cells Not Reportable 04/25/21 05:30 Toxic Granulation Not Reportable 04/25/21 05:30 Toxic Vacuolation Not Reportable 04/25/21 05:30 Dohle Bodies Not Reportable 04/25/21 05:30 Pelger-Huet Anomaly Not Reportable 04/25/21 05:30 Suki Rods Not Reportable 04/25/21 05:30 Platelet Estimate Consistent w auto 04/25/21 05:30 Clumped Platelets Not Reportable 04/25/21 05:30 Plt Clumps, EDTA Not Reportable 04/25/21 05:30 Large Platelets Not Reportable 04/25/21 05:30 Giant Platelets Not Reportable 04/25/21 05:30 Platelet Satelliting Not Reportable 04/25/21 05:30 Plt Morphology Comment Not Reportable 04/25/21 05:30 RBC Morphology Not Reportable 04/25/21 05:30 Dimorphic RBCs Not Reportable 04/25/21 05:30 Polychromasia Not Reportable 04/25/21 05:30 Hypochromasia 1+ 04/25/21 05:30 Poikilocytosis Not Reportable 04/25/21 05:30 Anisocytosis Few 04/25/21 05:30 Microcytosis Not Reportable 04/25/21 05:30 Macrocytosis Not Reportable 04/25/21 05:30 Spherocytes Not Reportable 04/25/21 05:30 Pappenheimer Bodies Not Reportable 04/25/21 05:30 Sickle Cells Not Reportable 04/25/21 05:30 Target Cells 1+ 04/25/21 05:30 Tear Drop Cells Not Reportable 04/25/21 05:30 Ovalocytes Not Reportable 04/25/21 05:30 Helmet Cells Not Reportable 04/25/21 05:30 [place] Bodies Not Reportable 04/25/21 05:30 Rosalia Rings Not Reportable 04/25/21 05:30 [place] Cells Not Reportable 04/25/21 05:30 Bite Cells Not Reportable 04/25/21 05:30 Crenated Cell Not Reportable 04/25/21 05:30 Elliptocytes Not Reportable 04/25/21 05:30 Acanthocytes (Spur) Not Reportable 04/25/21 05:30 Rouleaux Not Reportable 04/25/21 05:30 Hemoglobin C Crystals Not Reportable 04/25/21 05:30 Schistocytes Not Reportable 04/25/21 05:30 Malaria parasites Not Reportable 04/25/21 05:30 Aly Bodies Not Reportable 04/25/21 05:30 Hem Pathologist Commnt No 04/25/21 05:30 PT 16.8 Sec. (12.2-14.9) H 04/24/21 16:24 INR 1.30 (0.87-1.13) H 04/24/21 16:24 APTT 28.0 Sec. (24.2-36.6) 04/24/21 16:24 Sodium 136 mmol/L (137-145) L 04/26/21 06:15 Potassium 5.6 mmol/L (3.6-5.0) H D 04/26/21 06:15 Chloride 98.6 mmol/L (98-107) 04/26/21 06:15 Carbon Dioxide 26 mmol/L (22-30) 04/26/21 06:15 Anion Gap 17 mmol/L 04/26/21 06:15 BUN 25 mg/dL (7-17) H 04/26/21 06:15 Creatinine 1.5 mg/dL (0.6-1.2) H 04/26/21 06:15 Estimated GFR 48 ml/min 04/26/21 06:15 BUN/Creatinine Ratio 17 % 04/26/21 06:15 Glucose 85 mg/dL (65-100) 04/26/21 06:15 POC Glucose 107 mg/dL (70-105) H 04/24/21 21:22 Hemoglobin A1c 6.6 % (4-6) H 04/24/21 05:47 Lactic Acid 3.70 mmol/L (0.7-2.0) H* 04/24/21 13:10 Calcium 9.1 mg/dL (8.4-10.2) 04/26/21 06:15 Magnesium 1.90 mg/dL (1.7-2.3) 04/25/21 05:30 Total Bilirubin 1.20 mg/dL (0.1-1.2) 04/25/21 05:30 AST 27 units/L (5-40) 04/25/21 05:30 ALT 24 units/L (7-56) 04/25/21 05:30 Alkaline Phosphatase 202 units/L (35-129) H 04/25/21 05:30 Lactate Dehydrogenase 392 units/L (91-180) H 04/25/21 05:30 Total Creatine Kinase 59 units/L (30-135) 04/23/21 12:53 Troponin T < 0.010 ng/mL (0.00-0.029) 04/23/21 10:49 NT-Pro-B Natriuret Pep 5810 pg/mL (0-450) H 04/23/21 10:49 Total Protein 5.8 g/dL (6.3-8.2) L 04/25/21 05:30 Albumin 3.1 g/dL (3.9-5) L 04/25/21 05:30 Albumin/Globulin Ratio 1.1 % 04/25/21 05:30 Lipase 21 units/L (13-60) 04/23/21 10:49 TSH 4.330 mlU/mL (0.270-4.200) H 04/23/21 12:53 HCG, Quant < 2 mIU/mL (0-4) 04/23/21 12:53 Salicylates 0.6 mg/dL (2.8-20.0) L 04/23/21 12:53 Acetaminophen 5.0 ug/mL (10.0-30.0) L 04/23/21 12:53 Plasma/Serum Alcohol < 0.01 % (0-0.07) 04/23/21 12:53 Microbiology: Microbiology 04/23/21 12:53 Peripheral/Venous Blood Culture - Preliminary NO GROWTH AFTER 48 HOURS 04/23/21 12:51 Peripheral/Venous Blood Culture - Preliminary NO GROWTH AFTER 48 HOURS Matta/IV: Voiding Method Toilet Active Medications - Current Medications Current Medications: Generic Name Dose Route Start Last Admin Trade Name Freq PRN Reason Stop Dose Admin Acetaminophen 650 mg 04/24/21 01:58 Acetaminophen 325 Mg Tab PO Q4H PRN Pain MILD(1-3)/Fever >100.5/ADEN Aspirin 81 mg 04/25/21 10:00 04/25/21 10:19 Aspirin 81 Mg Tab Chew PO 81 mg QDAY BASSEM Administration Carvedilol 25 mg 04/26/21 10:00 Carvedilol 25 Mg Tab PO Q12HR BASSEM Cephalexin 500 mg 04/25/21 14:00 04/25/21 21:19 Cephalexin 500 Mg Cap PO 04/30/21 13:59 500 mg Q12HR BASSEM Administration Protocol Famotidine 20 mg 04/24/21 10:00 04/25/21 10:21 Famotidine 20 Mg Tab PO 20 mg QAM BASSEM Administration Hydromorphone HCl 0.5 mg 04/24/21 01:58 04/26/21 06:37 Hydromorphone 1 Mg/1 Ml Inj IV 0.5 mg Q3H PRN Administration Pain , Severe (7-10) Lisinopril 10 mg 04/24/21 17:00 04/25/21 10:22 Lisinopril 10 Mg Tab PO 10 mg QDAY BASSEM Administration Metoclopramide HCl 5 mg 04/24/21 01:58 Metoclopramide 10 Mg/2 Ml Inj IV Q6H PRN Nausea And Vomiting Nicotine 14 mg 04/24/21 10:00 04/25/21 10:20 Nicotine 14 Mg/24 Hr Patch TD 14 mg QDAY BASSEM Administration Ondansetron HCl 4 mg 04/24/21 01:58 04/24/21 04:55 Ondansetron 4 Mg/2 Ml Inj IV 4 mg Q8H PRN Administration Nausea And Vomiting Oxycodone/Acetaminophen 1 tab 04/24/21 01:58 04/25/21 21:15 Oxycodone /Acetaminophen 5-325mg Tab PO 1 tab Q6H PRN Administration Pain, Moderate (4-6) Rivaroxaban 20 mg 04/24/21 17:00 04/25/21 10:21 Rivaroxaban 20 Mg Tab PO 20 mg DAILY BASSEM Administration Protocol Sodium Chloride 10 ml 04/24/21 10:00 04/25/21 21:19 Sodium Chloride 0.9% 10 Ml Flush Syringe IV 10 ml BID BASSEM Administration Sodium Chloride 10 ml 04/24/21 01:58 04/25/21 06:29 Sodium Chloride 0.9% 10 Ml Flush Syringe IV 10 ml PRN PRN Administration LINE FLUSH Sodium Polystyrene Sulfonate 30 gm 04/26/21 08:00 Sodium Polystyrene 15 Gm/60 Ml Oral Liqd PO 04/26/21 15:00 ONCE BASSEM Spironolactone 25 mg 04/24/21 17:00 04/25/21 10:23 Spironolactone 25 Mg Tab PO 25 mg QDAY BASSEM Administration Nutrition/Malnutrition Assess - Dietary Evaluation Nutrition/Malnutrition Findings: Nutrition Notes Start: 04/24/21 14:30 Freq: Status: Active Protocol: Document 04/24/21 14:30 (Rec: 04/24/21 14:33 [id number]) Nutrition Notes Need for Assessment generated from: MD Order Initial or Follow up Brief Note Current Diagnosis Acute Kidney Injury,Heart Failure,Respiratory Failure, Stroke Current Diet Cardiac Subjective/Other Information MD order for ONS. Pt reports no weight loss and eating 100% of meals. Pt mumbling and not talking much. Unsure of accuracy of pt report. Nutrition Intervention Follow-Up By: 04/26/21 Additional Comments FU for stable intakes
[2021-04-26] MEDS: ASPIRIN 81 MG TAB CHEW PO SCH (11:27)
[2021-04-26] MEDS: carvediloL 25 MG TAB PO SCH ×2 (11:27→22:02)
[2021-04-26] MEDS: NICOTINE 14 MG/24 HR PATCH TD SCH (11:28)
[2021-04-26] MEDS: FAMOTIDINE 20 MG TAB PO SCH (11:29)
[2021-04-26] MEDS: cephALEXin 500 MG CAP PO SCH ×2 (11:29→22:01)
[2021-04-26] MEDS: RIVAROXABAN 20 MG TAB PO SCH (11:30)
--- NOTE | 2021-04-26 11:37 | XRay Report ---
CHEST 1 VIEW INDICATION: left pleural effusion, recent thora. COMPARISON: 3 days prior FINDINGS: Support devices: None. Heart: Stable. Lungs/Pleura: There is significant decrease in right pleural effusion. No pneumothorax is seen. There is mild atelectasis in the right lung base. IMPRESSION: 1. No complications after right thoracentesis. Signer Name: Jae Medrano MD Signed: 04/26/2021 11:33 AM Workstation Name: [id number]
--- NOTE | 2021-04-26 11:55 | Ultrasound Report ---
Ultrasound-guided thoracentesis HISTORY: right large pleural effusion. COMPARISON: AP chest 04/23/2021 PROCEDURE: The risks (including but not limited to bleeding, infection, and pneumothorax) and benefi ts were explained to the patient and informed consent was obtained. A time out procedure was perform ed. Ultrasound was used to evaluate the right pleural effusion and locate the optimal site for needle ent ry. Once the skin was marked, the procedure site was prepped and draped in the usual sterile fashion and lidocaine was used for local anesthesia. A skin bhavik was made and a 6-Upper Sorbian thoracentesis cath eter was placed. The patient was monitored closely throughout the procedure, and a total of 1000 mL of slightly cloudy yellow fluid was aspirated. Samples were sent to the lab for further evaluation p er the primary clinicians orders. The patient tolerated the procedure well with no complications. A post-procedure chest x-ray was imm ediately ordered. IMPRESSION: Successful thoracentesis as above with a total of 1000 mL of cloudy yellow fluid aspirate d. Signer Name: Alfredo West Jr, MD Signed: 04/26/2021 11:51 AM Workstation Name: [id number]
--- NOTE | 2021-04-26 13:04 | Progress Note ---
Assessment and Plan Acute hypoxemic respiratory failure Acute exacerbation of CHF , EF 10% Bilateral Pleural effusions Cardiorenal syndrome Hypertension Nicotine dependence - Follow up CXR post thoracentesis, follow up pleural fluid analysis -Continue to titrate supplemental oxygen to keep SpO2 89-92% - continue anticoagulation protocol per cardiology recommendation - avoid nephrotoxins, dose all medications for CrCL adn GFR -Monitor renal function and hemodynamics closely while on diuretic therapy -Heart failure measures - PT/OT as tolerated - prn analgesia per pain score - continue accuchecks with glycemic control per SSI for target blood glucose < 180 mg/dL - Smoking cessation strongly counseled at the bedside (continue nicotine withdrawal precautions) - home oxygen evaluation at discharge - Influenza and pneumonia vaccination per protocol - Pulmonary out patient follow up for PFTs and optimization of respiratory status - continue other care per attending / other consultants Subjective Date of service: 04/26/21 Principal diagnosis: Ac hypoxemic resp failure; AE-CHF; Pleural effusions; Cardiorenal syndrome Interval history: Patient is seen today for: Acute hypoxemic respiratory failure; AE-CHF; Bilateral Pleural effusions; Cardiorenal syndrome; HTN; SUSHANT; Nicotine dependence Seen and examined at bedside; 24hour events reviewed; nursing and respiratory care staff consulted; no adverse overnight events reported to me; resting peacefully in chair; s/p left thoracentesis, feels more comfortable; remains on supplemental oxygen, less shortness of breath, no fevers, no chills, no nausea or vomiting; good diuresis Objective Vital Signs - 12hr 04/26/21 04/26/21 04/26/21 02:00 06:29 06:32 Temperature 97.6 F 98.4 F Pulse Rate 93 H 93 H Respiratory 18 17 Rate Blood Pressure 148/120 Blood Pressure 177/133 [Right] O2 Sat by Pulse 98 Oximetry 04/26/21 04/26/21 06:37 07:50 Temperature 98.2 F Pulse Rate 83 Respiratory 20 19 Rate Blood Pressure 88/67 Blood Pressure [Right] O2 Sat by Pulse 100 Oximetry Constitutional: no acute distress, other (young female with normal respiratory effort at rest) Eyes: non-icteric ENT: oropharynx moist Neck: supple, no JVD Effort: normal Ascultation: Bilateral: diminished breath sounds, rhonchi (bases) Percussion: Right: dull (RLL region) Cardiovascular: regular rate and rhythm, other (S1,S2) Gastrointestinal: normoactive bowel sounds, soft, non-tender, non-distended Integumentary: normal Extremities: no cyanosis, no edema, pulses normal, no ischemia or petechiae Neurologic: normal mental status, non-focal exam, pupils equal and round, CN II- XII normal, motor strength normal and Psychiatric: mood appropriate, affect normal CBC and BMP: 04/26/21 06:15 04/26/21 18:14 ABG, PT/INR, D-dimer: PT/INR, D-dimer PT 16.8 Sec. (12.2-14.9) H 04/24/21 16:24 INR 1.30 (0.87-1.13) H 04/24/21 16:24 Abnormal lab findings: Abnormal Labs 04/23/21 04/23/21 04/23/21 01:20 01:20 10:49 RBC 6.16 H Hgb Hct 45.5 H MCV 74 L MCH 23 L RDW 22.2 H Lymph % (Auto) 45.7 H Cobb % (Auto) 9.1 H Lymphocytes % (Manual) Basophils % (Manual) Nucleated RBC % Basophils # (Manual) PT INR Sodium Potassium BUN 28 H Creatinine 1.4 H Glucose POC Glucose Hemoglobin A1c Lactic Acid Total Bilirubin 1.80 H Alkaline Phosphatase 213 H Lactate Dehydrogenase NT-Pro-B Natriuret Pep 5810 H Total Protein Albumin 3.7 L TSH Salicylates Acetaminophen 04/23/21 04/23/21 04/23/21 12:53 12:53 12:53 RBC Hgb Hct MCV MCH RDW Lymph % (Auto) Cobb % (Auto) Lymphocytes % (Manual) Basophils % (Manual) Nucleated RBC % Basophils # (Manual) PT INR Sodium Potassium BUN Creatinine Glucose POC Glucose Hemoglobin A1c Lactic Acid 3.00 H* Total Bilirubin Alkaline Phosphatase Lactate Dehydrogenase NT-Pro-B Natriuret Pep Total Protein Albumin TSH 4.330 H Salicylates 0.6 L Acetaminophen 04/23/21 04/24/21 04/24/21 12:53 00:00 05:47 RBC Hgb Hct MCV MCH RDW Lymph % (Auto) Cobb % (Auto) Lymphocytes % (Manual) Basophils % (Manual) Nucleated RBC % Basophils # (Manual) PT INR Sodium Potassium BUN Creatinine Glucose POC Glucose Hemoglobin A1c Lactic Acid 5.50 H* 3.40 H* Total Bilirubin Alkaline Phosphatase Lactate Dehydrogenase NT-Pro-B Natriuret Pep Total Protein Albumin TSH Salicylates Acetaminophen 5.0 L 04/24/21 04/24/21 04/24/21 05:47 05:47 13:10 RBC Hgb Hct MCV MCH RDW Lymph % (Auto) Cobb % (Auto) Lymphocytes % (Manual) Basophils % (Manual) Nucleated RBC % Basophils # (Manual) PT INR Sodium Potassium BUN 26 H Creatinine Glucose 102 H POC Glucose Hemoglobin A1c 6.6 H Lactic Acid 3.70 H* Total Bilirubin Alkaline Phosphatase Lactate Dehydrogenase NT-Pro-B Natriuret Pep Total Protein Albumin TSH Salicylates Acetaminophen 04/24/21 04/24/21 04/24/21 16:24 16:24 21:22 RBC 6.46 H Hgb 14.7 H Hct 48.8 H MCV 76 L MCH 23 L RDW 22.5 H Lymph % (Auto) Cobb % (Auto) Lymphocytes % (Manual) Basophils % (Manual) Nucleated RBC % Basophils # (Manual) PT 16.8 H INR 1.30 H Sodium Potassium BUN Creatinine Glucose POC Glucose 107 H Hemoglobin A1c Lactic Acid Total Bilirubin Alkaline Phosphatase Lactate Dehydrogenase NT-Pro-B Natriuret Pep Total Protein Albumin TSH Salicylates Acetaminophen 04/25/21 04/25/21 04/25/21 05:30 05:30 05:30 RBC 6.09 H Hgb Hct 45.2 H MCV 74 L MCH 22 L RDW 21.6 H Lymph % (Auto) Cobb % (Auto) Lymphocytes % (Manual) 36.0 H Basophils % (Manual) 3.0 H Nucleated RBC % 1.0 H Basophils # (Manual) 0.2 H PT INR Sodium Potassium BUN 26 H Creatinine Glucose POC Glucose Hemoglobin A1c Lactic Acid Total Bilirubin Alkaline Phosphatase 202 H Lactate Dehydrogenase 392 H NT-Pro-B Natriuret Pep Total Protein 5.8 L Albumin 3.1 L TSH Salicylates Acetaminophen 04/26/21 04/26/21 06:15 06:15 RBC 6.08 H Hgb Hct 45.1 H MCV 74 L MCH 23 L RDW 21.6 H Lymph % (Auto) Cobb % (Auto) Lymphocytes % (Manual) Basophils % (Manual) Nucleated RBC % Basophils # (Manual) PT INR Sodium 136 L Potassium 5.6 H D BUN 25 H Creatinine 1.5 H Glucose POC Glucose Hemoglobin A1c Lactic Acid Total Bilirubin Alkaline Phosphatase Lactate Dehydrogenase NT-Pro-B Natriuret Pep Total Protein Albumin TSH Salicylates Acetaminophen Chest x-ray: image reviewed Allied health notes reviewed: nursing
[2021-04-26 16:12] LABS: Total Cells Counted 100 /mm3
--- NOTE | 2021-04-26 18:52 | Electrocardiograph Report ---
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
--- NOTE | 2021-04-26 19:19 | Electrocardiograph Report ---
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
[2021-04-26 19:23] LABS: Calcium 8.6 mg/dL (8.4-10.2)
[2021-04-26] MEDS: oxyCODONE /ACETAMINOPHEN 5-325MG TAB PO PRN (22:02)
[2021-04-27] MEDS: LISINOPRIL 10 MG TAB PO SCH (07:17)
--- NOTE | 2021-04-27 08:44 | Progress Note ---
Assessment and Plan Acute hypoxemic respiratory failure Acute exacerbation of CHF , EF 10% Bilateral Pleural effusions Cardiorenal syndrome Hypertension Nicotine dependence -Adjustment of cardiac medications per Cardiology, re soft blood pressure. She needs higher perfusion pressures to ensure renal function does not worsen -Continue to titrate supplemental oxygen to keep SpO2 89-92% - Home oxygen evaluation at discharge - continue anticoagulation protocol per cardiology recommendation - avoid nephrotoxins, dose all medications for CrCL and GFR -Monitor renal function and hemodynamics closely while on diuretic therapy - Continue with heart failure measures - PT/OT as tolerated - prn analgesia per pain score - continue accuchecks with glycemic control per SSI for target blood glucose < 180 mg/dL - Smoking cessation counseled at the bedside (continue nicotine withdrawal precautions)-on going - Influenza and pneumonia vaccination per protocol - Pulmonary out patient follow up for PFTs and optimization of respiratory status - continue other care per attending / other consultants Subjective Date of service: 04/27/21 Principal diagnosis: Ac hypoxemic resp failure; AE-CHF; Pleural effusions; Cardiorenal syndrome Interval history: Patient is seen today for: Acute hypoxemic respiratory failure; AE-CHF; Bilateral Pleural effusions; Cardiorenal syndrome; HTN; SUSHANT; Nicotine dependence Seen and examined at bedside; 24hour events reviewed; nursing and respiratory care staff consulted; no adverse overnight events reported to me; resting peacefully in chair; s/p left thoracentesis, feels more comfortable; remains on supplemental oxygen, less shortness of breath, no fevers, no chills, no nausea or vomiting; good diuresis- blood pressures are soft Objective Vital Signs - 12hr 04/26/21 04/26/21 04/26/21 22:00 22:02 23:51 Temperature 97.6 F Pulse Rate 95 H 92 H Respiratory 26 H 20 18 Rate Blood Pressure 107/79 105/76 O2 Sat by Pulse 100 99 Oximetry 04/27/21 04/27/21 02:00 03:31 Temperature 97.6 F Pulse Rate 92 H 87 Respiratory 18 Rate Blood Pressure 93/66 O2 Sat by Pulse 100 Oximetry Constitutional: no acute distress, other (young female with normal respiratory effort at rest) Eyes: non-icteric ENT: oropharynx moist Neck: supple, no JVD Effort: normal Ascultation: Bilateral: diminished breath sounds, rhonchi (bases) Percussion: Right: dull (RLL region) Cardiovascular: regular rate and rhythm, other (S1,S2) Gastrointestinal: normoactive bowel sounds, soft, non-tender, non-distended Integumentary: normal Extremities: no cyanosis, no edema, pulses normal, no ischemia or petechiae Neurologic: normal mental status, non-focal exam, pupils equal and round, CN II-XII normal, motor strength normal and Psychiatric: mood appropriate, affect normal CBC and BMP: 04/26/21 06:15 04/27/21 09:23 ABG, PT/INR, D-dimer: PT/INR, D-dimer PT 16.8 Sec. (12.2-14.9) H 04/24/21 16:24 INR 1.30 (0.87-1.13) H 04/24/21 16:24 Abnormal lab findings: Abnormal Labs 04/23/21 04/23/21 04/23/21 01:20 01:20 10:49 RBC 6.16 H Hgb Hct 45.5 H MCV 74 L MCH 23 L RDW 22.2 H Lymph % (Auto) 45.7 H Josephine % (Auto) 9.1 H Lymphocytes % (Manual) Basophils % (Manual) Nucleated RBC % Basophils # (Manual) PT INR Sodium Potassium Chloride BUN 28 H Creatinine 1.4 H Glucose POC Glucose Hemoglobin A1c Lactic Acid Total Bilirubin 1.80 H Alkaline Phosphatase 213 H Lactate Dehydrogenase NT-Pro-B Natriuret Pep 5810 H Total Protein Albumin 3.7 L TSH Salicylates Acetaminophen 04/23/21 04/23/21 04/23/21 12:53 12:53 12:53 RBC Hgb Hct MCV MCH RDW Lymph % (Auto) Josephine % (Auto) Lymphocytes % (Manual) Basophils % (Manual) Nucleated RBC % Basophils # (Manual) PT INR Sodium Potassium Chloride BUN Creatinine Glucose POC Glucose Hemoglobin A1c Lactic Acid 3.00 H* Total Bilirubin Alkaline Phosphatase Lactate Dehydrogenase NT-Pro-B Natriuret Pep Total Protein Albumin TSH 4.330 H Salicylates 0.6 L Acetaminophen 04/23/21 04/24/21 04/24/21 12:53 00:00 05:47 RBC Hgb Hct MCV MCH RDW Lymph % (Auto) Josephine % (Auto) Lymphocytes % (Manual) Basophils % (Manual) Nucleated RBC % Basophils # (Manual) PT INR Sodium Potassium Chloride BUN Creatinine Glucose POC Glucose Hemoglobin A1c Lactic Acid 5.50 H* 3.40 H* Total Bilirubin Alkaline Phosphatase Lactate Dehydrogenase NT-Pro-B Natriuret Pep Total Protein Albumin TSH Salicylates Acetaminophen 5.0 L 04/24/21 04/24/21 04/24/21 05:47 05:47 13:10 RBC Hgb Hct MCV MCH RDW Lymph % (Auto) Josephine % (Auto) Lymphocytes % (Manual) Basophils % (Manual) Nucleated RBC % Basophils # (Manual) PT INR Sodium Potassium Chloride BUN 26 H Creatinine Glucose 102 H POC Glucose Hemoglobin A1c 6.6 H Lactic Acid 3.70 H* Total Bilirubin Alkaline Phosphatase Lactate Dehydrogenase NT-Pro-B Natriuret Pep Total Protein Albumin TSH Salicylates Acetaminophen 04/24/21 04/24/21 04/24/21 16:24 16:24 21:22 RBC 6.46 H Hgb 14.7 H Hct 48.8 H MCV 76 L MCH 23 L RDW 22.5 H Lymph % (Auto) Josephine % (Auto) Lymphocytes % (Manual) Basophils % (Manual) Nucleated RBC % Basophils # (Manual) PT 16.8 H INR 1.30 H Sodium Potassium Chloride BUN Creatinine Glucose POC Glucose 107 H Hemoglobin A1c Lactic Acid Total Bilirubin Alkaline Phosphatase Lactate Dehydrogenase NT-Pro-B Natriuret Pep Total Protein Albumin TSH Salicylates Acetaminophen 04/25/21 04/25/21 04/25/21 05:30 05:30 05:30 RBC 6.09 H Hgb Hct 45.2 H MCV 74 L MCH 22 L RDW 21.6 H Lymph % (Auto) Josephine % (Auto) Lymphocytes % (Manual) 36.0 H Basophils % (Manual) 3.0 H Nucleated RBC % 1.0 H Basophils # (Manual) 0.2 H PT INR Sodium Potassium Chloride BUN 26 H Creatinine Glucose POC Glucose Hemoglobin A1c Lactic Acid Total Bilirubin Alkaline Phosphatase 202 H Lactate Dehydrogenase 392 H NT-Pro-B Natriuret Pep Total Protein 5.8 L Albumin 3.1 L TSH Salicylates Acetaminophen 04/26/21 04/26/21 04/26/21 06:15 06:15 18:14 RBC 6.08 H Hgb Hct 45.1 H MCV 74 L MCH 23 L RDW 21.6 H Lymph % (Auto) Josephine % (Auto) Lymphocytes % (Manual) Basophils % (Manual) Nucleated RBC % Basophils # (Manual) PT INR Sodium 136 L 135 L Potassium 5.6 H D Chloride 97.9 L BUN 25 H 25 H Creatinine 1.5 H 1.3 H Glucose POC Glucose Hemoglobin A1c Lactic Acid Total Bilirubin Alkaline Phosphatase Lactate Dehydrogenase NT-Pro-B Natriuret Pep Total Protein Albumin TSH Salicylates Acetaminophen Allied health notes reviewed: nursing
[2021-04-27] MEDS ORDERED: carvediloL 25 MG TAB PO SCH (10:06)
--- NOTE | 2021-04-27 10:09 | Progress Note ---
Assessment and Plan Due to borderline to low normal BPs, will reduce Coreg dose so as to determine how much she actually tolerates. She is currently not on ACEI/ARB/ARNI due to low BPs. - Patient Problems (1) Acute respiratory failure with hypoxia Current Visit: Yes Status: Acute (2) Acute on chronic HFrEF (heart failure with reduced ejection fraction) Current Visit: Yes Status: Acute (3) Dilated cardiomyopathy Current Visit: Yes Status: Chronic (4) H/O deep venous thrombosis Current Visit: Yes Status: Chronic (5) History of pulmonary embolism Current Visit: Yes Status: Chronic Subjective Date of service: 04/27/21 Principal diagnosis: Acute resp failure, Acute on chronic HFrEF, Dilated CMP Interval history: She claims that her breathing is better. She complains of asymmetry of her breasts with the right breast being larger and harder. This has been discussed with the hospitalist as well and appropriate evaluation will be initiated. Borderline BPs. Objective Vital Signs Temp Pulse Resp BP Pulse Ox 04/27/21 03:31 97.6 F 87 18 93/66 100 04/27/21 02:00 92 H 04/26/21 23:51 97.6 F 92 H 18 105/76 99 04/26/21 22:02 95 H 20 107/79 04/26/21 22:00 26 H 100 04/26/21 20:17 97.6 F 17 107/79 04/26/21 16:34 97.6 F 95 H 19 106/76 92 04/26/21 14:00 77 04/26/21 10:15 18 90/64 04/26/21 10:12 85/58 - Physical Examination General: No Apparent Distress HEENT: Positive: EOMI, Normocephaly, Mucus Membranes Moist Neck: Positive: neck supple, trachea midline Cardiac: Positive: Reg Rate and Rhythm, S1/S2 Lungs: Positive: clear to auscultation Neuro: Positive: Grossly Intact Abdomen: Positive: Soft, Active Bowel Sounds. Negative: Tender Skin: Negative: Rash Musculoskeletal: Normal Range of Motion Extremities: Absent: edema - Labs and Meds Comprehensive Metabolic Panel 04/26/21 Range/Units 18:14 Sodium 135 L (137-145) mmol/L Potassium 4.8 (3.6-5.0) mmol/L Chloride 97.9 L (98-107) mmol/L Carbon Dioxide 27 (22-30) mmol/L BUN 25 H (7-17) mg/dL Creatinine 1.3 H (0.6-1.2) mg/dL Glucose 79 (65-100) mg/dL Calcium 8.6 (8.4-10.2) mg/dL - Imaging and Cardiology Echo: report reviewed - Telemetry EKG Rhythm: Sinus Rhythm - EKG Sinus rhythms and dysrhythmias: sinus rhythm - Allied health notes Allied health notes reviewed: nursing
--- NOTE | 2021-04-27 10:11 | Progress Note ---
Assessment and Plan Assessment and plan: Acute respiratory failure with hypoxia Hypoxia secondary to CHF and bilateral pleural effusion IV Lasix Acute exacerbation of CHF (congestive heart failure) Echocardiogram shows EF 10% IV Lasix every 12 hours Daily weights and intake and output BNP is high Cardiology consulted and he has been evaluated Hypertension Continue antihypertensives Nicotine dependence Patient counseled and started on NicoDerm patches SUSHANT (acute kidney injury) Secondary to vasomotor nephropathy Improving DVT prophylaxis On heparin and GI prophylaxis Hyperkalemia Gave Kayexalate SUSHANT Cr 1.5 on 04/26 Hold diuretics, recheck in am Elevated Lactic acid. No signs or symptoms of sepsis 04/24/21 Patient admitted yesterday for acute respiratory failure due to CHF exacerbation and bilateral pleural effusion. Continue supplemental Oxygen. Cardiology and Pulmonology consulted. 04/25/21 Patient with acute respiratory failure due to acute on chronic systolic CHF and bilateral pleural effusions. Echo shows EF 10%. She also has bilateral pleural effusions, followed here by Pulmonology. I discussed with cardiology. 04/26/21 Patient with acute respiratory failure due to acute on chronic systolic CHF and bilateral pleural effusions. She had thoracentesis today for moderate left pleural effusion. She tells me she does not have a PCP or Build Automation Engineer. She was seen at [facility] last time but does not have a Primary Build Automation Engineer. Today Cr 1.5 therefore hold Torsemide, repeat in am. Also Potassium 5.6, ordered Kayexalate. 04/27/21 Patient with acute resp failure due to acute on chronic systolic CHF and bilateral pleural effusions. s/p thoracentesis yesterday. She has swollen right breast with firm area on lower part, She tells me it has been swollen for 5 months and she had mammogram about 2 months ago at [facility] and was told it was negative. I have requested Mammogram report. BP borderline low at 93/66. I discussed with Cardiology. He will adjust medications. History Interval history: Shortness of breath improved no chest pain She does not have a PCP or primary Build Automation Engineer small wound left big toe Right breast swollen, firm on lower half X 5 months Hospitalist Physical - Physical exam Narrative exam: Gen: Not in acute distress, lying in bed HEENT: Normochephalic, atraumatic Neck:supple, No JVD Breast: right breast swollen Lungs: Bilateral basal rales, decreased breath sounds both bases Heart:S1 and S2 reg, no murmurs, rubs or gallop Abd: soft, non tender, normal bowel sounds Ext: Bilateral pitting pedal edema, no clubbing, no cyanosis, small healing woun d left 1st toe Neuro: Awake,alert,oriented x 3 Skin:anasarca - Constitutional Vitals: Temp Pulse Resp BP Pulse Ox 97.6 F 87 18 93/66 100 04/27/21 03:31 04/27/21 03:31 04/27/21 03:31 04/27/21 03:31 04/27/21 03:31 General appearance: Present: no acute distress HEART Score - HEART Score Age: < 45 Risk factors: 1-2 risk factors Troponin: Troponin T < 0.010 ng/mL (0.00-0.029) 04/23/21 10:49 Troponin: 1-3x normal limit - Critical Actions Critical Actions: 4-6 pts:12-16.6% risk of adverse cardiac event. Should be admitted Results - Labs CBC & Chem 7: 04/26/21 06:15 04/26/21 18:14 Labs: Laboratory Last Values WBC 6.3 K/mm3 (4.5-11.0) 04/26/21 06:15 RBC 6.08 M/mm3 (3.65-5.03) H 04/26/21 06:15 Hgb 14.0 gm/dl (10.1-14.3) 04/26/21 06:15 Hct 45.1 % (30.3-42.9) H 04/26/21 06:15 MCV 74 fl (79-97) L 04/26/21 06:15 MCH 23 pg (28-32) L 04/26/21 06:15 MCHC 31 % (30-34) 04/26/21 06:15 RDW 21.6 % (13.2-15.2) H 04/26/21 06:15 Plt Count 237 K/mm3 (140-440) 04/26/21 06:15 Lymph % (Auto) 45.7 % (13.4-35.0) H 04/23/21 01:20 [place] % (Auto) 9.1 % (0.0-7.3) H 04/23/21 01:20 Eos % (Auto) 1.2 % (0.0-4.3) 04/23/21 01:20 Baso % (Auto) 1.0 % (0.0-1.8) 04/23/21 01:20 Lymph # (Auto) 2.7 K/mm3 (1.2-5.4) 04/23/21 01:20 [place] # (Auto) 0.5 K/mm3 (0.0-0.8) 04/23/21 01:20 Eos # (Auto) 0.1 K/mm3 (0.0-0.4) 04/23/21 01:20 Baso # (Auto) 0.1 K/mm3 (0.0-0.1) 04/23/21 01:20 Add Manual Diff Complete 04/25/21 05:30 Total Counted 100 04/25/21 05:30 Seg Neutrophils % 43.0 % (40.0-70.0) 04/23/21 01:20 Seg Neuts % (Manual) 52.0 % (40.0-70.0) 04/25/21 05:30 Lymphocytes % (Manual) 36.0 % (13.4-35.0) H 04/25/21 05:30 Monocytes % (Manual) 7.0 % (0.0-7.3) 04/25/21 05:30 Eosinophils % (Manual) 2.0 % (0.0-4.3) 04/25/21 05:30 Basophils % (Manual) 3.0 % (0.0-1.8) H 04/25/21 05:30 Nucleated RBC % 1.0 % (0.0-0.9) H 04/25/21 05:30 Seg Neutrophils # 2.5 K/mm3 (1.8-7.7) 04/23/21 01:20 Seg Neutrophils # Man 3.9 K/mm3 (1.8-7.7) 04/25/21 05:30 Band Neutrophils # 0.0 K/mm3 04/25/21 05:30 Lymphocytes # (Manual) 2.7 K/mm3 (1.2-5.4) 04/25/21 05:30 Abs React Lymphs (Man) 0.0 K/mm3 04/25/21 05:30 Monocytes # (Manual) 0.5 K/mm3 (0.0-0.8) 04/25/21 05:30 Eosinophils # (Manual) 0.2 K/mm3 (0.0-0.4) 04/25/21 05:30 Basophils # (Manual) 0.2 K/mm3 (0.0-0.1) H 04/25/21 05:30 Metamyelocytes # 0.0 K/mm3 04/25/21 05:30 Myelocytes # 0.0 K/mm3 04/25/21 05:30 Promyelocytes # 0.0 K/mm3 04/25/21 05:30 Blast Cells # 0.0 K/mm3 04/25/21 05:30 WBC Morphology Not Reportable 04/25/21 05:30 Hypersegmented Neuts Not Reportable 04/25/21 05:30 Hyposegmented Neuts Not Reportable 04/25/21 05:30 Hypogranular Neuts Not Reportable 04/25/21 05:30 Smudge Cells Not Reportable 04/25/21 05:30 Toxic Granulation Not Reportable 04/25/21 05:30 Toxic Vacuolation Not Reportable 04/25/21 05:30 Dohle Bodies Not Reportable 04/25/21 05:30 Pelger-Huet Anomaly Not Reportable 04/25/21 05:30 Suki Rods Not Reportable 04/25/21 05:30 Platelet Estimate Consistent w auto 04/25/21 05:30 Clumped Platelets Not Reportable 04/25/21 05:30 Plt Clumps, EDTA Not Reportable 04/25/21 05:30 Large Platelets Not Reportable 04/25/21 05:30 Giant Platelets Not Reportable 04/25/21 05:30 Platelet Satelliting Not Reportable 04/25/21 05:30 Plt Morphology Comment Not Reportable 04/25/21 05:30 RBC Morphology Not Reportable 04/25/21 05:30 Dimorphic RBCs Not Reportable 04/25/21 05:30 Polychromasia Not Reportable 04/25/21 05:30 Hypochromasia 1+ 04/25/21 05:30 Poikilocytosis Not Reportable 04/25/21 05:30 Anisocytosis Few 04/25/21 05:30 Microcytosis Not Reportable 04/25/21 05:30 Macrocytosis Not Reportable 04/25/21 05:30 Spherocytes Not Reportable 04/25/21 05:30 Pappenheimer Bodies Not Reportable 04/25/21 05:30 Sickle Cells Not Reportable 04/25/21 05:30 Target Cells 1+ 04/25/21 05:30 Tear Drop Cells Not Reportable 04/25/21 05:30 Ovalocytes Not Reportable 04/25/21 05:30 Helmet Cells Not Reportable 04/25/21 05:30 Yeung-Bruc[place] Bodies Not Reportable 04/25/21 05:30 [place] Rings Not Reportable 04/25/21 05:30 Alfonso Cells Not Reportable 04/25/21 05:30 Bite Cells Not Reportable 04/25/21 05:30 Crenated Cell Not Reportable 04/25/21 05:30 Elliptocytes Not Reportable 04/25/21 05:30 Acanthocytes (Spur) Not Reportable 04/25/21 05:30 Rouleaux Not Reportable 04/25/21 05:30 Hemoglobin C Crystals Not Reportable 04/25/21 05:30 Schistocytes Not Reportable 04/25/21 05:30 Malaria parasites Not Reportable 04/25/21 05:30 Aly Bodies Not Reportable 04/25/21 05:30 Hem Pathologist Commnt No 04/25/21 05:30 PT 16.8 Sec. (12.2-14.9) H 04/24/21 16:24 INR 1.30 (0.87-1.13) H 04/24/21 16:24 APTT 28.0 Sec. (24.2-36.6) 04/24/21 16:24 Sodium 135 mmol/L (137-145) L 04/26/21 18:14 Potassium 4.8 mmol/L (3.6-5.0) 04/26/21 18:14 Chloride 97.9 mmol/L (98-107) L 04/26/21 18:14 Carbon Dioxide 27 mmol/L (22-30) 04/26/21 18:14 Anion Gap 15 mmol/L 04/26/21 18:14 BUN 25 mg/dL (7-17) H 04/26/21 18:14 Creatinine 1.3 mg/dL (0.6-1.2) H 04/26/21 18:14 Estimated GFR 56 ml/min 04/26/21 18:14 BUN/Creatinine Ratio 19 % 06/18/21 18:14 Glucose 79 mg/dL (65-100) 04/26/21 18:14 POC Glucose 107 mg/dL (70-105) H 04/24/21 21:22 Hemoglobin A1c 6.6 % (4-6) H 04/24/21 05:47 Lactic Acid 3.70 mmol/L (0.7-2.0) H* 04/24/21 13:10 Calcium 8.6 mg/dL (8.4-10.2) 04/26/21 18:14 Magnesium 1.90 mg/dL (1.7-2.3) 04/25/21 05:30 Total Bilirubin 1.20 mg/dL (0.1-1.2) 04/25/21 05:30 AST 27 units/L (5-40) 04/25/21 05:30 ALT 24 units/L (7-56) 04/25/21 05:30 Alkaline Phosphatase 202 units/L (35-129) H 04/25/21 05:30 Lactate Dehydrogenase 392 units/L (91-180) H 04/25/21 05:30 Total Creatine Kinase 59 units/L (30-135) 04/23/21 12:53 Troponin T < 0.010 ng/mL (0.00-0.029) 04/23/21 10:49 NT-Pro-B Natriuret Pep 5810 pg/mL (0-450) H 04/23/21 10:49 Total Protein 5.8 g/dL (6.3-8.2) L 04/25/21 05:30 Albumin 3.1 g/dL (3.9-5) L 04/25/21 05:30 Albumin/Globulin Ratio 1.1 % 04/25/21 05:30 Lipase 21 units/L (13-60) 04/23/21 10:49 TSH 4.330 mlU/mL (0.270-4.200) H 04/23/21 12:53 HCG, Quant < 2 mIU/mL (0-4) 04/23/21 12:53 Fluid Type Pleural 04/26/21 10:07 Fluid Color Yellow 04/26/21 10:07 Fluid Appearance Hazy 04/26/21 10:07 Fluid WBC 241 /mm3 04/26/21 10:07 Fluid RBC 3475 /mm3 04/26/21 10:07 Fluid Seg Neutrophils 20.0 % 04/26/21 10:07 Fluid Lymphocytes 79.0 % 04/26/21 10:07 Fluid Reactive Lymphs Not Reportable 04/26/21 10:07 Fluid Monocytes 1.0 % 04/26/21 10:07 Fluid Eosinophils Not Reportable 04/26/21 10:07 Fluid Basophils Not Reportable 04/26/21 10:07 Salicylates 0.6 mg/dL (2.8-20.0) L 04/23/21 12:53 Acetaminophen 5.0 ug/mL (10.0-30.0) L 04/23/21 12:53 Plasma/Serum Alcohol < 0.01 % (0-0.07) 04/23/21 12:53 Microbiology: Microbiology 04/26/21 10:07 Pleural Fluid - Pleura,Rt Lung Body Fluid Culture - Preliminary 04/23/21 12:53 Peripheral/Venous Blood Culture - Preliminary NO GROWTH AFTER 72 HOURS 04/23/21 12:51 Peripheral/Venous Blood Culture - Preliminary NO GROWTH AFTER 72 HOURS Matta/IV: Voiding Method Toilet Active Medications - Current Medications Current Medications: Generic Name Dose Route Start Last Admin Trade Name Freq PRN Reason Stop Dose Admin Acetaminophen 650 mg 04/24/21 01:58 Acetaminophen 325 Mg Tab PO Q4H PRN Pain MILD(1-3)/Fever >100.5/ADEN Aspirin 81 mg 04/25/21 10:00 04/26/21 11:27 Aspirin 81 Mg Tab Chew PO 81 mg QDAY BASSEM Administration Carvedilol 25 mg 04/26/21 10:00 04/26/21 22:02 Carvedilol 25 Mg Tab PO 25 mg Q12HR BASSEM Administration Cephalexin 500 mg 04/25/21 14:00 04/26/21 22:01 Cephalexin 500 Mg Cap PO 04/30/21 13:59 500 mg Q12HR BASSEM Administration Protocol Famotidine 20 mg 04/24/21 10:00 04/26/21 11:29 Famotidine 20 Mg Tab PO 20 mg QAM BASSEM Administration Hydromorphone HCl 0.5 mg 04/24/21 01:58 04/26/21 06:37 Hydromorphone 1 Mg/1 Ml Inj IV 0.5 mg Q3H PRN Administration Pain , Severe (7-10) Metoclopramide HCl 5 mg 04/24/21 01:58 Metoclopramide 10 Mg/2 Ml Inj IV Q6H PRN Nausea And Vomiting Nicotine 14 mg 04/24/21 10:00 04/26/21 11:28 Nicotine 14 Mg/24 Hr Patch TD 14 mg QDAY BASSEM Administration Ondansetron HCl 4 mg 04/24/21 01:58 04/24/21 04:55 Ondansetron 4 Mg/2 Ml Inj IV 4 mg Q8H PRN Administration Nausea And Vomiting Oxycodone/Acetaminophen 1 tab 04/24/21 01:58 04/26/21 22:02 Oxycodone /Acetaminophen 5-325mg Tab PO 1 tab Q6H PRN Administration Pain, Moderate (4-6) Rivaroxaban 20 mg 04/24/21 17:00 04/26/21 11:30 Rivaroxaban 20 Mg Tab PO 20 mg DAILY BASSEM Administration Protocol Sodium Chloride 10 ml 04/24/21 10:00 04/27/21 07:17 Sodium Chloride 0.9% 10 Ml Flush Syringe IV Not Given BID BASSEM Sodium Chloride 10 ml 04/24/21 01:58 04/25/21 06:29 Sodium Chloride 0.9% 10 Ml Flush Syringe IV 10 ml PRN PRN Administration LINE FLUSH Spironolactone 25 mg 04/24/21 17:00 04/26/21 10:00 Spironolactone 25 Mg Tab PO Not Given QDAY BASSEM Torsemide 20 mg 04/27/21 10:00 Torsemide 10 Mg Tab PO BID [facility] Nutrition/Malnutrition Assess - Dietary Evaluation Nutrition/Malnutrition Findings: Nutrition Notes Start: 04/24/21 14:30 Freq: Status: Active Protocol: Document 04/26/21 11:33 CW (Rec: 04/26/21 11:40 CW [id number]) Nutrition Notes Need for Assessment generated from: MD Order Initial or Follow up Reassessment Current Diagnosis Acute Kidney Injury,Heart Failure,Respiratory Failure, Stroke Other Pertinent Diagnosis malnutrition Current Diet Cardiac Labs/Tests Na 136 K 5.6 BUN 25 Cr 1.5 Pertinent Medications kionex (planned) spironolactone Kdur toresmide lasix Height 5 ft 8 in Weight 72.2 kg [place] Body Weight (kg) 63.63 BMI 24.2 Intake Prior to Admission Excellent Weight Status Appropriate Subjective/Other Information F/U for stable intakes. Pt reports having a good appetite and eating 100% of breakfast. Pt has yet to eat lunch d/t late breakfast. Pt reports that she plans to consume all of lunch at a later time. Pt denies recent weight loss. Pt likes receiving ONS. Will continue at this time until stable intake is established. Burn Absent Trauma Absent GI Symptoms None Food Allergy No Current % PO Good (75-100%) Minimum of two criteria No Fluid Accumulation Mild (non-severe) #1 Nutrition Diagnosis No nutrition diagnosis at this time Is patient on ventilator? No Is Patient Ambulatory and/or Out of Bed No REE-([facility]-confined to bed) 6728.163 Calculation Used for Recommendations [facility] Additional Notes protein needs: 43 - 58g (0.6 - 0.8 g/kgBW) fluid needs: per MD Nutrition Intervention Change Diet Order: Continue current order Add Supplement/Snack (indicate name/kcal Ensure Enlive QD /protein ) Provides kCal: 350 Provides Protein (gm) 20 Goal #1 Dayanna t least 75% of kcal and protein needs via PO Anticipated Discharge Needs: Cardiac Diet Follow-Up By: 04/30/21 Additional Comments F/U for stable intakes and need for ONS
[2021-04-27 10:17] LABS: BUN/Creatinine Ratio 23; Blood Urea Nitrogen 27 mg/dL (7-17); Calcium 9.4 mg/dL (8.4-10.2); Hemolysis Index 2
[2021-04-27] MEDS: RIVAROXABAN 20 MG TAB PO SCH (10:32)
[2021-04-27] MEDS: cephALEXin 500 MG CAP PO SCH ×2 (10:32→21:26)
[2021-04-27] MEDS: ASPIRIN 81 MG TAB CHEW PO SCH (10:32)
[2021-04-27] MEDS: TORSEMIDE 10 MG TAB PO SCH ×2 (10:32→21:26)
[2021-04-27] MEDS: SPIRONOLACTONE 25 MG TAB PO SCH (10:32)
[2021-04-27] MEDS: FAMOTIDINE 20 MG TAB PO SCH (10:32)
[2021-04-27] MEDS: NICOTINE 14 MG/24 HR PATCH TD SCH (10:33)
[2021-04-27] MEDS: carvediloL 6.25 MG TAB PO SCH ×2 (10:35→21:25)
[2021-04-27] MEDS: carvediloL 25 MG TAB PO SCH (11:15)
[2021-04-27] MEDS: oxyCODONE /ACETAMINOPHEN 5-325MG TAB PO PRN (15:40)
[2021-04-28 06:29] LABS: Hematocrit 42.2 % (30.3-42.9); Hemoglobin 13.2 gm/dl (10.1-14.3); Mean Corpuscular HGB Conc 31 % (30-34); Mean Corpuscular Volume 73 fl (79-97); Platelet Count 253 K/mm3 (140-440); Red Blood Count 5.77 M/mm3 (3.65-5.03)
[2021-04-28 06:51] LABS: BUN/Creatinine Ratio 23; Blood Urea Nitrogen 27 mg/dL (7-17); Calcium 9.4 mg/dL (8.4-10.2); Hemolysis Index 0
--- NOTE | 2021-04-28 09:25 | Progress Note ---
Assessment and Plan Considering recent SUSHANT, probably related to cardiorenal syndrome, I will initiate IV diuretics with dobutamine fixed dose drip to hopefully aid diuresis. Renal indices will be monitored. Will add ACEi/ARB eventually if and when BP permits. She probably will not tolerate ARNI. She will benefit from a LifeVest before discharge. - Patient Problems (1) Acute respiratory failure with hypoxia Current Visit: Yes Status: Acute (2) Acute on chronic HFrEF (heart failure with reduced ejection fraction) Current Visit: Yes Status: Acute (3) Dilated cardiomyopathy Current Visit: Yes Status: Chronic (4) H/O deep venous thrombosis Current Visit: Yes Status: Chronic (5) History of pulmonary embolism Current Visit: Yes Status: Chronic Subjective Principal diagnosis: Acute on chronic HFrEF, Dilated CMP, Pleural effusion Interval history: The patient has no shortness of breath. However, she complains about persistent edema of her legs. Coreg was reduced yesterday due to borderline BPs. Objective Vital Signs Temp Pulse Pulse Resp BP BP Pulse Ox 04/28/21 04:03 98.0 F 85 18 100/71 94 04/28/21 02:00 85 04/27/21 23:24 98.0 F 91 H 18 140/85 100 04/27/21 21:25 90 111/79 04/27/21 20:29 90 20 100 04/27/21 19:27 98.9 F 90 18 111/79 100 04/27/21 16:19 98.1 F 77 18 106/72 96 04/27/21 11:23 77 - Physical Examination General: No Apparent Distress HEENT: Positive: EOMI, Normocephaly, Mucus Membranes Moist Neck: Positive: neck supple, trachea midline, JVD/HJR Cardiac: Positive: Reg Rate and Rhythm, S1/S2 Lungs: Positive: clear to auscultation Neuro: Positive: Grossly Intact Abdomen: Positive: Soft, Active Bowel Sounds. Negative: Tender Skin: Negative: Rash Musculoskeletal: Normal Range of Motion Extremities: Present: +2 Edema - Labs and Meds CBC 04/28/21 Range/Units 06:05 WBC 6.0 (4.5-11.0) K/mm3 RBC 5.77 H (3.65-5.03) M/mm3 Hgb 13.2 (10.1-14.3) gm/dl Hct 42.2 (30.3-42.9) % Plt Count 253 (140-440) K/mm3 Comprehensive Metabolic Panel 04/27/21 04/28/21 Range/Units 09:23 06:05 Sodium 133 L 137 (137-145) mmol/L Potassium 4.5 4.4 (3.6-5.0) mmol/L Chloride 94.7 L 96.8 L (98-107) mmol/L Carbon Dioxide 26 28 (22-30) mmol/L BUN 27 H 27 H (7-17) mg/dL Creatinine 1.2 1.2 (0.6-1.2) mg/dL Glucose 104 H 97 (65-100) mg/dL Calcium 9.4 9.4 (8.4-10.2) mg/dL - Imaging and Cardiology Echo: report reviewed - Telemetry EKG Rhythm: Sinus Rhythm - EKG Sinus rhythms and dysrhythmias: sinus rhythm - Allied health notes Allied health notes reviewed: nursing
[2021-04-28] MEDS: DOBUTamine/D5W 500 MG/250 ML 500 MG/250 ML BAG IV SCH (10:35)
[2021-04-28] MEDS: cephALEXin 500 MG CAP PO SCH ×2 (10:36→21:23)
[2021-04-28] MEDS: SPIRONOLACTONE 25 MG TAB PO SCH (10:36)
[2021-04-28] MEDS: FAMOTIDINE 20 MG TAB PO SCH (10:36)
[2021-04-28] MEDS: RIVAROXABAN 20 MG TAB PO SCH (10:36)
[2021-04-28] MEDS: NICOTINE 14 MG/24 HR PATCH TD SCH (10:36)
[2021-04-28] MEDS: carvediloL 6.25 MG TAB PO SCH ×2 (10:36→21:23)
[2021-04-28] MEDS: ASPIRIN 81 MG TAB CHEW PO SCH (10:36)
--- NOTE | 2021-04-28 10:56 | Progress Note ---
Assessment and Plan Acute hypoxemic respiratory failure Acute exacerbation of CHF , EF 10% Bilateral Pleural effusions Cardiorenal syndrome Hypertension Nicotine dependence -Iontropic support with Dobutamine ABG and CXR as clinically indicated -Continue to titrate supplemental oxygen to keep SpO2 89-92% - Home oxygen evaluation at discharge - continue anticoagulation protocol per cardiology recommendation - avoid nephrotoxins, dose all medications for CrCL and GFR -Monitor renal function and hemodynamics closely while on diuretic therapy - Continue with heart failure measures - PT/OT as tolerated - prn analgesia per pain score - continue accuchecks with glycemic control per SSI for target blood glucose < 180 mg/dL - Smoking cessation counseled at the bedside (continue nicotine withdrawal precautions)-on going - Influenza and pneumonia vaccination per protocol - Pulmonary out patient follow up for PFTs and optimization of respiratory status - continue other care per attending / other consultants Subjective Date of service: 04/28/21 Principal diagnosis: Acute on chronic HFrEF, Dilated CMP, Pleural effusion Interval history: Patient is seen today for: Acute hypoxemic respiratory failure; AE-CHF; Bilateral Pleural effusions; Cardiorenal syndrome; HTN; SUSHANT; Nicotine dependence Seen and examined at bedside; 24hour events reviewed; nursing and respiratory care staff consulted; no adverse overnight events reported to me; resting peacefully in chair; s/p left thoracentesis, feels more comfortable; remains on supplemental oxygen, less shortness of breath, no fevers, no chills, no nausea o r vomiting; good diuresis- blood pressures are soft On Dobutamine, waiting for IV to be established for infusion Objective Vital Signs - 12hr 04/27/21 04/28/21 04/28/21 23:24 02:00 04:03 Temperature 98.0 F 98.0 F Pulse Rate 91 H 85 85 Respiratory 18 18 Rate Blood Pressure 140/85 100/71 O2 Sat by Pulse 100 94 Oximetry Constitutional: no acute distress, other (young female with normal respiratory effort at rest) Eyes: non-icteric ENT: oropharynx moist Neck: supple, no JVD Effort: normal Ascultation: Bilateral: diminished breath sounds, rhonchi (bases) Percussion: Right: dull (RLL region) Cardiovascular: regular rate and rhythm, other (S1,S2) Gastrointestinal: normoactive bowel sounds, soft, non-tender, non-distended Integumentary: normal Extremities: no cyanosis, no edema, pulses normal, no ischemia or petechiae Neurologic: normal mental status, non-focal exam, pupils equal and round, CN II- XII normal, motor strength normal and Psychiatric: mood appropriate, affect normal CBC and BMP: 04/30/21 05:13 04/30/21 05:13 ABG, PT/INR, D-dimer: PT/INR, D-dimer PT 16.8 Sec. (12.2-14.9) H 04/24/21 16:24 INR 1.30 (0.87-1.13) H 04/24/21 16:24 Abnormal lab findings: Abnormal Labs 04/23/21 04/23/21 04/23/21 01:20 01:20 10:49 RBC 6.16 H Hgb Hct 45.5 H MCV 74 L MCH 23 L RDW 22.2 H Lymph % (Auto) 45.7 H [place] % (Auto) 9.1 H Lymphocytes % (Manual) Basophils % (Manual) Nucleated RBC % Basophils # (Manual) PT INR Sodium Potassium Chloride BUN 28 H Creatinine 1.4 H Glucose POC Glucose Hemoglobin A1c Lactic Acid Total Bilirubin 1.80 H Alkaline Phosphatase 213 H Lactate Dehydrogenase NT-Pro-B Natriuret Pep 5810 H Total Protein Albumin 3.7 L TSH Salicylates Acetaminophen 04/23/21 04/23/21 04/23/21 12:53 12:53 12:53 RBC Hgb Hct MCV MCH RDW Lymph % (Auto) [place] % (Auto) Lymphocytes % (Manual) Basophils % (Manual) Nucleated RBC % Basophils # (Manual) PT INR Sodium Potassium Chloride BUN Creatinine Glucose POC Glucose Hemoglobin A1c Lactic Acid 3.00 H* Total Bilirubin Alkaline Phosphatase Lactate Dehydrogenase NT-Pro-B Natriuret Pep Total Protein Albumin TSH 4.330 H Salicylates 0.6 L Acetaminophen 04/23/21 04/24/21 04/24/21 12:53 00:00 05:47 RBC Hgb Hct MCV MCH RDW Lymph % (Auto) [place] % (Auto) Lymphocytes % (Manual) Basophils % (Manual) Nucleated RBC % Basophils # (Manual) PT INR Sodium Potassium Chloride BUN Creatinine Glucose POC Glucose Hemoglobin A1c Lactic Acid 5.50 H* 3.40 H* Total Bilirubin Alkaline Phosphatase Lactate Dehydrogenase NT-Pro-B Natriuret Pep Total Protein Albumin TSH Salicylates Acetaminophen 5.0 L 04/24/21 04/24/21 04/24/21 05:47 05:47 13:10 RBC Hgb Hct MCV MCH RDW Lymph % (Auto) [place] % (Auto) Lymphocytes % (Manual) Basophils % (Manual) Nucleated RBC % Basophils # (Manual) PT INR Sodium Potassium Chloride BUN 26 H Creatinine Glucose 102 H POC Glucose Hemoglobin A1c 6.6 H Lactic Acid 3.70 H* Total Bilirubin Alkaline Phosphatase Lactate Dehydrogenase NT-Pro-B Natriuret Pep Total Protein Albumin TSH Salicylates Acetaminophen 04/24/21 04/24/21 04/24/21 16:24 16:24 21:22 RBC 6.46 H Hgb 14.7 H Hct 48.8 H MCV 76 L MCH 23 L RDW 22.5 H Lymph % (Auto) [place] % (Auto) Lymphocytes % (Manual) Basophils % (Manual) Nucleated RBC % Basophils # (Manual) PT 16.8 H INR 1.30 H Sodium Potassium Chloride BUN Creatinine Glucose POC Glucose 107 H Hemoglobin A1c Lactic Acid Total Bilirubin Alkaline Phosphatase Lactate Dehydrogenase NT-Pro-B Natriuret Pep Total Protein Albumin TSH Salicylates Acetaminophen 04/25/21 04/25/21 04/25/21 05:30 05:30 05:30 RBC 6.09 H Hgb Hct 45.2 H MCV 74 L MCH 22 L RDW 21.6 H Lymph % (Auto) [place] % (Auto) Lymphocytes % (Manual) 36.0 H Basophils % (Manual) 3.0 H Nucleated RBC % 1.0 H Basophils # (Manual) 0.2 H PT INR Sodium Potassium Chloride BUN 26 H Creatinine Glucose POC Glucose Hemoglobin A1c Lactic Acid Total Bilirubin Alkaline Phosphatase 202 H Lactate Dehydrogenase 392 H NT-Pro-B Natriuret Pep Total Protein 5.8 L Albumin 3.1 L TSH Salicylates Acetaminophen 04/26/21 04/26/21 04/26/21 06:15 06:15 18:14 RBC 6.08 H Hgb Hct 45.1 H MCV 74 L MCH 23 L RDW 21.6 H Lymph % (Auto) [place] % (Auto) Lymphocytes % (Manual) Basophils % (Manual) Nucleated RBC % Basophils # (Manual) PT INR Sodium 136 L 135 L Potassium 5.6 H D Chloride 97.9 L BUN 25 H 25 H Creatinine 1.5 H 1.3 H Glucose POC Glucose Hemoglobin A1c Lactic Acid Total Bilirubin Alkaline Phosphatase Lactate Dehydrogenase NT-Pro-B Natriuret Pep Total Protein Albumin TSH Salicylates Acetaminophen 04/27/21 04/28/21 04/28/21 09:23 06:05 06:05 RBC 5.77 H Hgb Hct MCV 73 L MCH 23 L RDW 21.0 H Lymph % (Auto) [place] % (Auto) Lymphocytes % (Manual) Basophils % (Manual) Nucleated RBC % Basophils # (Manual) PT INR Sodium 133 L Potassium Chloride 94.7 L 96.8 L BUN 27 H 27 H Creatinine Glucose 104 H POC Glucose Hemoglobin A1c Lactic Acid Total Bilirubin Alkaline Phosphatase Lactate Dehydrogenase NT-Pro-B Natriuret Pep Total Protein Albumin TSH Salicylates Acetaminophen Chest x-ray: image reviewed Allied health notes reviewed: nursing
--- NOTE | 2021-04-28 11:32 | Progress Note ---
Assessment and Plan Assessment and plan: Acute respiratory failure with hypoxia Hypoxia secondary to CHF and bilateral pleural effusion IV Lasix Acute on chronic systolic CHF Echocardiogram shows EF 10% Daily weights and intake and output BNP is high Cardiology consulted and he has been evaluated Hypertension Continue antihypertensives Nicotine dependence Patient counseled and started on NicoDerm patches SUSHANT (acute kidney injury) Secondary to vasomotor nephropathy Improving DVT prophylaxis On heparin and GI prophylaxis Hyperkalemia Gave Kayexalate SUSHANT Cr 1.5 on 04/26 Hold diuretics, recheck in am Elevated Lactic acid. No signs or symptoms of sepsis 04/24/21 Patient admitted yesterday for acute respiratory failure due to CHF exacerbation and bilateral pleural effusion. Continue supplemental Oxygen. Cardiology and Pulmonology consulted. 04/25/21 Patient with acute respiratory failure due to acute on chronic systolic CHF and bilateral pleural effusions. Echo shows EF 10%. She also has bilateral pleural effusions, followed here by Pulmonology. I discussed with cardiology. 04/26/21 Patient with acute respiratory failure due to acute on chronic systolic CHF and bilateral pleural effusions. She had thoracentesis today for moderate left pleural effusion. She tells me she does not have a PCP or Tool Repair Technician. She was seen at [facility] last time but does not have a Primary Tool Repair Technician. Today Cr 1.5 therefore hold Torsemide, repeat in am. Also Potassium 5.6, ordered Kayexalate. 04/27/21 Patient with acute resp failure due to acute on chronic systolic CHF and bilateral pleural effusions. s/p thoracentesis yesterday. She has swollen right breast with firm area on lower part, She tells me it has been swollen for 5 months and she had mammogram about 2 months ago at [facility] and was told it was negative. I have requested Mammogram report. BP borderline low at 93/66. I discussed with Cardiology. He will adjust medications. 04/28/21 Patient with acute respiratory failure due to acute on chronic systolic CHF and bilateral pleural effusions. s/p thoracentesis. She has swollen right breast with firm area on lower part, She tells me it has been swollen for 5 months and she had mammogram about 2 months ago at [facility] and was told it was negative. I have requested Mammogram report. Patient was seen by Tool Repair Technician today and Dobutamine drip ordered. Also cardiology recommends Life vest prior to discharge. History Interval history: Shortness of breath improved no chest pain She does not have a PCP or primary Tool Repair Technician small wound left big toe Right breast swollen, firm on lower half X 5 months Hospitalist Physical - Physical exam Narrative exam: Gen: Not in acute distress, lying in bed HEENT: Normochephalic, atraumatic Neck:supple, No JVD Breast: right breast swollen,firm on lower half Lungs: Bilateral basal rales, Heart:S1 and S2 reg, no murmurs, rubs or gallop Abd: soft, non tender, normal bowel sounds Ext: Bilateral pitting pedal edema, no clubbing, no cyanosis, small healing wound left 1st toe Neuro: Awake,alert,oriented x 3, moves all ext Skin:anasarca - Constitutional Vitals: Temp Pulse Resp BP Pulse Ox 98.0 F 85 18 100/71 94 04/28/21 04:03 04/28/21 04:03 04/28/21 04:03 04/28/21 04:03 04/28/21 04:03 General appearance: Present: no acute distress HEART Score - HEART Score Age: < 45 Risk factors: 1-2 risk factors Troponin: Troponin T < 0.010 ng/mL (0.00-0.029) 04/23/21 10:49 Troponin: 1-3x normal limit - Critical Actions Critical Actions: 4-6 pts:12-16.6% risk of adverse cardiac event. Should be admitted Results - Labs CBC & Chem 7: 04/28/21 06:05 04/28/21 06:05 Labs: Laboratory Last Values WBC 6.0 K/mm3 (4.5-11.0) 04/28/21 06:05 RBC 5.77 M/mm3 (3.65-5.03) H 04/28/21 06:05 Hgb 13.2 gm/dl (10.1-14.3) 04/28/21 06:05 Hct 42.2 % (30.3-42.9) 04/28/21 06:05 MCV 73 fl (79-97) L 04/28/21 06:05 MCH 23 pg (28-32) L 04/28/21 06:05 MCHC 31 % (30-34) 04/28/21 06:05 RDW 21.0 % (13.2-15.2) H 04/28/21 06:05 Plt Count 253 K/mm3 (140-440) 04/28/21 06:05 Lymph % (Auto) 45.7 % (13.4-35.0) H 04/23/21 01:20 [place] % (Auto) 9.1 % (0.0-7.3) H 04/23/21 01:20 Eos % (Auto) 1.2 % (0.0-4.3) 04/23/21 01:20 Baso % (Auto) 1.0 % (0.0-1.8) 04/23/21 01:20 Lymph # (Auto) 2.7 K/mm3 (1.2-5.4) 04/23/21 01:20 [place] # (Auto) 0.5 K/mm3 (0.0-0.8) 04/23/21 01:20 Eos # (Auto) 0.1 K/mm3 (0.0-0.4) 04/23/21 01:20 Baso # (Auto) 0.1 K/mm3 (0.0-0.1) 04/23/21 01:20 Add Manual Diff Complete 04/25/21 05:30 Total Counted 100 04/25/21 05:30 Seg Neutrophils % 43.0 % (40.0-70.0) 04/23/21 01:20 Seg Neuts % (Manual) 52.0 % (40.0-70.0) 04/25/21 05:30 Lymphocytes % (Manual) 36.0 % (13.4-35.0) H 04/25/21 05:30 Monocytes % (Manual) 7.0 % (0.0-7.3) 04/25/21 05:30 Eosinophils % (Manual) 2.0 % (0.0-4.3) 04/25/21 05:30 Basophils % (Manual) 3.0 % (0.0-1.8) H 04/25/21 05:30 Nucleated RBC % 1.0 % (0.0-0.9) H 04/25/21 05:30 Seg Neutrophils # 2.5 K/mm3 (1.8-7.7) 04/23/21 01:20 Seg Neutrophils # Man 3.9 K/mm3 (1.8-7.7) 04/25/21 05:30 Band Neutrophils # 0.0 K/mm3 04/25/21 05:30 Lymphocytes # (Manual) 2.7 K/mm3 (1.2-5.4) 04/25/21 05:30 Abs React Lymphs (Man) 0.0 K/mm3 04/25/21 05:30 Monocytes # (Manual) 0.5 K/mm3 (0.0-0.8) 04/25/21 05:30 Eosinophils # (Manual) 0.2 K/mm3 (0.0-0.4) 04/25/21 05:30 Basophils # (Manual) 0.2 K/mm3 (0.0-0.1) H 04/25/21 05:30 Metamyelocytes # 0.0 K/mm3 04/25/21 05:30 Myelocytes # 0.0 K/mm3 04/25/21 05:30 Promyelocytes # 0.0 K/mm3 04/25/21 05:30 Blast Cells # 0.0 K/mm3 04/25/21 05:30 WBC Morphology Not Reportable 04/25/21 05:30 Hypersegmented Neuts Not Reportable 04/25/21 05:30 Hyposegmented Neuts Not Reportable 04/25/21 05:30 Hypogranular Neuts Not Reportable 04/25/21 05:30 Smudge Cells Not Reportable 04/25/21 05:30 Toxic Granulation Not Reportable 04/25/21 05:30 Toxic Vacuolation Not Reportable 04/25/21 05:30 Dohle Bodies Not Reportable 04/25/21 05:30 Pelger-Huet Anomaly Not Reportable 04/25/21 05:30 Suki Rods Not Reportable 04/25/21 05:30 Platelet Estimate Consistent w auto 04/25/21 05:30 Clumped Platelets Not Reportable 04/25/21 05:30 Plt Clumps, EDTA Not Reportable 04/25/21 05:30 Large Platelets Not Reportable 04/25/21 05:30 Giant Platelets Not Reportable 04/25/21 05:30 Platelet Satelliting Not Reportable 04/25/21 05:30 Plt Morphology Comment Not Reportable 04/25/21 05:30 RBC Morphology Not Reportable 04/25/21 05:30 Dimorphic RBCs Not Reportable 04/25/21 05:30 Polychromasia Not Reportable 04/25/21 05:30 Hypochromasia 1+ 04/25/21 05:30 Poikilocytosis Not Reportable 04/25/21 05:30 Anisocytosis Few 04/25/21 05:30 Microcytosis Not Reportable 04/25/21 05:30 Macrocytosis Not Reportable 04/25/21 05:30 Spherocytes Not Reportable 04/25/21 05:30 Pappenheimer Bodies Not Reportable 04/25/21 05:30 Sickle Cells Not Reportable 04/25/21 05:30 Target Cells 1+ 04/25/21 05:30 Tear Drop Cells Not Reportable 04/25/21 05:30 Ovalocytes Not Reportable 04/25/21 05:30 Helmet Cells Not Reportable 04/25/21 05:30 [place] Bodies Not Reportable 04/25/21 05:30 [place] Rings Not Reportable 04/25/21 05:30 Alfonso Cells Not Reportable 04/25/21 05:30 Bite Cells Not Reportable 04/25/21 05:30 Crenated Cell Not Reportable 04/25/21 05:30 Elliptocytes Not Reportable 04/25/21 05:30 Acanthocytes (Spur) Not Reportable 04/25/21 05:30 Rouleaux Not Reportable 04/25/21 05:30 Hemoglobin C Crystals Not Reportable 04/25/21 05:30 Schistocytes Not Reportable 04/25/21 05:30 Malaria parasites Not Reportable 04/25/21 05:30 Aly Bodies Not Reportable 04/25/21 05:30 Hem Pathologist Commnt No 04/25/21 05:30 PT 16.8 Sec. (12.2-14.9) H 04/24/21 16:24 INR 1.30 (0.87-1.13) H 04/24/21 16:24 APTT 28.0 Sec. (24.2-36.6) 04/24/21 16:24 Sodium 137 mmol/L (137-145) 04/28/21 06:05 Potassium 4.4 mmol/L (3.6-5.0) 04/28/21 06:05 Chloride 96.8 mmol/L (98-107) L 04/28/21 06:05 Carbon Dioxide 28 mmol/L (22-30) 04/28/21 06:05 Anion Gap 17 mmol/L 04/28/21 06:05 BUN 27 mg/dL (7-17) H 04/28/21 06:05 Creatinine 1.2 mg/dL (0.6-1.2) 04/28/21 06:05 Estimated GFR > 60 ml/min 04/28/21 06:05 BUN/Creatinine Ratio 23 % 04/28/21 06:05 Glucose 97 mg/dL (65-100) 04/28/21 06:05 POC Glucose 107 mg/dL (70-105) H 04/24/21 21:22 Hemoglobin A1c 6.6 % (4-6) H 04/24/21 05:47 Lactic Acid 3.70 mmol/L (0.7-2.0) H* 04/24/21 13:10 Calcium 9.4 mg/dL (8.4-10.2) 04/28/21 06:05 Magnesium 1.90 mg/dL (1.7-2.3) 04/25/21 05:30 Total Bilirubin 1.20 mg/dL (0.1-1.2) 04/25/21 05:30 AST 27 units/L (5-40) 04/25/21 05:30 ALT 24 units/L (7-56) 04/25/21 05:30 Alkaline Phosphatase 202 units/L (35-129) H 04/25/21 05:30 Lactate Dehydrogenase 392 units/L (91-180) H 04/25/21 05:30 Total Creatine Kinase 59 units/L (30-135) 04/23/21 12:53 Troponin T < 0.010 ng/mL (0.00-0.029) 04/23/21 10:49 NT-Pro-B Natriuret Pep 5810 pg/mL (0-450) H 04/23/21 10:49 Total Protein 5.8 g/dL (6.3-8.2) L 04/25/21 05:30 Albumin 3.1 g/dL (3.9-5) L 04/25/21 05:30 Albumin/Globulin Ratio 1.1 % 04/25/21 05:30 Lipase 21 units/L (13-60) 04/23/21 10:49 TSH 4.330 mlU/mL (0.270-4.200) H 04/23/21 12:53 HCG, Quant < 2 mIU/mL (0-4) 04/23/21 12:53 Fluid Type Pleural 04/26/21 10:07 Fluid Color Yellow 04/26/21 10:07 Fluid Appearance Hazy 04/26/21 10:07 Fluid WBC 241 /mm3 04/26/21 10:07 Fluid RBC 3475 /mm3 04/26/21 10:07 Fluid Seg Neutrophils 20.0 % 04/26/21 10:07 Fluid Lymphocytes 79.0 % 04/26/21 10:07 Fluid Reactive Lymphs Not Reportable 04/26/21 10:07 Fluid Monocytes 1.0 % 04/26/21 10:07 Fluid Eosinophils Not Reportable 04/26/21 10:07 Fluid Basophils Not Reportable 04/26/21 10:07 Salicylates 0.6 mg/dL (2.8-20.0) L 04/23/21 12:53 Acetaminophen 5.0 ug/mL (10.0-30.0) L 04/23/21 12:53 Plasma/Serum Alcohol < 0.01 % (0-0.07) 04/23/21 12:53 Microbiology: Microbiology 04/26/21 10:07 Pleural Fluid - Pleura,Rt Lung Body Fluid Culture - Preliminary 04/23/21 12:53 Peripheral/Venous Blood Culture - Preliminary NO GROWTH AFTER 4 DAYS 04/23/21 12:51 Peripheral/Venous Blood Culture - Preliminary NO GROWTH AFTER 4 DAYS Matta/IV: Voiding Method Toilet Active Medications - Current Medications Current Medications: Generic Name Dose Route Start Last Admin Trade Name Freq PRN Reason Stop Dose Admin Acetaminophen 650 mg 04/24/21 01:58 Acetaminophen 325 Mg Tab PO Q4H PRN Pain MILD(1-3)/Fever >100.5/ADEN Aspirin 81 mg 04/25/21 10:00 04/28/21 10:36 Aspirin 81 Mg Tab Chew PO 81 mg QDAY [facility] Administration Bumetanide 1 mg 04/28/21 18:00 Bumetanide 1 Mg/4 Ml Inj IV BID@0600,1800 [facility] Carvedilol 6.25 mg 04/27/21 11:00 04/28/21 10:36 Carvedilol 6.25 Mg Tab PO 6.25 mg BID BASSEM Administration Cephalexin 500 mg 04/25/21 14:00 04/28/21 10:36 Cephalexin 500 Mg Cap PO 04/30/21 13:59 500 mg Q12HR BASSEM Administration Protocol Famotidine 20 mg 04/24/21 10:00 04/28/21 10:36 Famotidine 20 Mg Tab PO 20 mg QAM BASSEM Administration Hydromorphone HCl 0.5 mg 04/24/21 01:58 04/26/21 06:37 Hydromorphone 1 Mg/1 Ml Inj IV 0.5 mg Q3H PRN Administration Pain , Severe (7-10) Dobutamine HCl/Dextrose 500 mg in 250 mls @ 10.77 mls/hr 04/28/21 10:00 04/28/21 10:35 Dobutrex Drip 500mg/D5w 250ml IV 5 mcg/kg/min DIRECT BASSEM 10.77 mls/hr Administration Protocol 5 MCG/KG/MIN Metoclopramide HCl 5 mg 04/24/21 01:58 04/27/21 15:39 Metoclopramide 10 Mg/2 Ml Inj IV 5 mg Q6H PRN Administration Nausea And Vomiting Nicotine 14 mg 04/24/21 10:00 04/28/21 10:36 Nicotine 14 Mg/24 Hr Patch TD 14 mg QDAY BASSEM Administration Ondansetron HCl 4 mg 04/24/21 01:58 04/24/21 04:55 Ondansetron 4 Mg/2 Ml Inj IV 4 mg Q8H PRN Administration Nausea And Vomiting Oxycodone/Acetaminophen 1 tab 04/24/21 01:58 04/27/21 15:40 Oxycodone /Acetaminophen 5-325mg Tab PO 1 tab Q6H PRN Administration Pain, Moderate (4-6) Rivaroxaban 20 mg 04/24/21 17:00 04/28/21 10:36 Rivaroxaban 20 Mg Tab PO 20 mg DAILY BASSEM Administration Protocol Sodium Chloride 10 ml 04/24/21 10:00 04/28/21 10:36 Sodium Chloride 0.9% 10 Ml Flush Syringe IV 10 ml BID BASSEM Administration Sodium Chloride 10 ml 04/24/21 01:58 04/25/21 06:29 Sodium Chloride 0.9% 10 Ml Flush Syringe IV 10 ml PRN PRN Administration LINE FLUSH Spironolactone 25 mg 04/24/21 17:00 04/28/21 10:36 Spironolactone 25 Mg Tab PO 25 mg QDAY BASSEM Administration Nutrition/Malnutrition Assess - Dietary Evaluation Nutrition/Malnutrition Findings: Nutrition Notes Start: 04/24/21 14:30 Freq: Status: Active Protocol: Document 04/26/21 11:33 CW (Rec: 04/26/21 11:40 CW [id number]) Nutrition Notes Need for Assessment generated from: MD Order Initial or Follow up Reassessment Current Diagnosis Acute Kidney Injury,Heart Failure,Respiratory Failure, Stroke Other Pertinent Diagnosis malnutrition Current Diet Cardiac Labs/Tests Na 136 K 5.6 BUN 25 Cr 1.5 Pertinent Medications kionex (planned) spironolactone Kdur toresmide lasix Height 5 ft 8 in Weight 72.2 kg Chase Body Weight (kg) 63.63 BMI 24.2 Intake Prior to Admission Excellent Weight Status Appropriate Subjective/Other Information F/U for stable intakes. Pt reports having a good appetite and eating 100% of breakfast. Pt has yet to eat lunch d/t late breakfast. Pt reports that she plans to consume all of lunch at a later time. Pt denies recent weight loss. Pt likes receiving ONS. Will continue at this time until stable intake is established. Burn Absent Trauma Absent GI Symptoms None Food Allergy No Current % PO Good (75-100%) Minimum of two criteria No Fluid Accumulation Mild (non-severe) #1 Nutrition Diagnosis No nutrition diagnosis at this time Is patient on ventilator? No Is Patient Ambulatory and/or Out of Bed No REE-([facility]-confined to bed) 6250.995 Calculation Used for Recommendations [facility] Additional Notes protein needs: 43 - 58g (0.6 - 0.8 g/kgBW) fluid needs: per MD Nutrition Intervention Change Diet Order: Continue current order Add Supplement/Snack (indicate name/kcal Ensure Enlive QD /protein ) Provides kCal: 350 Provides Protein (gm) 20 Goal #1 Dayanna t least 75% of kcal and protein needs via PO Anticipated Discharge Needs: Cardiac Diet Follow-Up By: 04/30/21 Additional Comments F/U for stable intakes and need for ONS
[2021-04-28] MEDS: BUMETANIDE 1 MG/4 ML INJ IV SCH (17:24)
[2021-04-29] MEDS ORDERED: diphenhydrAMINE 25 MG CAP PO ONE (02:28)
[2021-04-29 06:24] LABS: BUN/Creatinine Ratio 25; Blood Urea Nitrogen 25 mg/dL (7-17); Calcium 9.3 mg/dL (8.4-10.2); Hemolysis Index 8
[2021-04-29] MEDS: BUMETANIDE 1 MG/4 ML INJ IV SCH ×2 (06:28→17:37)
[2021-04-29] MEDS: oxyCODONE /ACETAMINOPHEN 5-325MG TAB PO PRN ×2 (06:51→13:41)
--- NOTE | 2021-04-29 09:26 | Progress Note ---
Assessment and Plan Assessment and plan: Acute respiratory failure with hypoxia Hypoxia secondary to CHF and bilateral pleural effusion IV Lasix Acute on chronic systolic CHF Echocardiogram shows EF 10% Daily weights and intake and output Cardiology consulted and he has been evaluated Hypertension Continue antihypertensives Nicotine dependence Patient counseled and started on NicoDerm patches SUSHANT (acute kidney injury) Secondary to vasomotor nephropathy Improving DVT prophylaxis On heparin and GI prophylaxis Hyperkalemia Gave Kayexalate SUSHANT Cr 1.5 on 04/26 Hold diuretics, recheck in am Elevated Lactic acid. No signs or symptoms of sepsis 04/24/21 Patient admitted yesterday for acute respiratory failure due to CHF exacerbation and bilateral pleural effusion. Continue supplemental Oxygen. Cardiology and Pulmonology consulted. 04/25/21 Patient with acute respiratory failure due to acute on chronic systolic CHF and bilateral pleural effusions. Echo shows EF 10%. She also has bilateral pleural effusions, followed here by Pulmonology. I discussed with cardiology. 04/26/21 Patient with acute respiratory failure due to acute on chronic systolic CHF and bilateral pleural effusions. She had thoracentesis today for moderate left pleural effusion. She tells me she does not have a PCP or [facility]. She was seen at [place] last time but does not have a Primary [facility]. Today Cr 1.5 therefore hold Torsemide, repeat in am. Also Potassium 5.6, ordered Kayexalate. 04/27/21 Patient with acute resp failure due to acute on chronic systolic CHF and bilateral pleural effusions. s/p thoracentesis yesterday. She has swollen right breast with firm area on lower part, She tells me it has been swollen for 5 months and she had mammogram about 2 months ago at [place] and was told it was negative. I have requested Mammogram report. BP borderline low at 93/66. I discussed with Cardiology. He will adjust medications. 04/28/21 Patient with acute respiratory failure due to acute on chronic systolic CHF and bilateral pleural effusions. s/p thoracentesis. She has swollen right breast with firm area on lower part, She tells me it has been swollen for 5 months and she had mammogram about 2 months ago at [place] and was told it was negative. I have requested Mammogram report. Patient was seen by [facility] today and Dobutamine drip ordered. Also cardiology recommends Life vest prior to discharge. 04/29/21. Cont. dobutamine per Cardiology recommendations. Await Lifevest. Cont. GDMT for heart failure. Bumex and spironolactone for diuresis. History Interval history: No new issues overnight Hospitalist Physical - Constitutional Vitals: Temp Pulse Resp BP Pulse Ox 96.8 F L 88 17 109/76 98 04/29/21 07:49 04/29/21 08:39 04/29/21 08:39 04/29/21 07:49 04/29/21 08:39 General appearance: Present: no acute distress - EENT Eyes: Present: PERRL, EOM intact ENT: hearing intact, clear oral mucosa, dentition normal - Neck Neck: Present: supple, normal ROM - Respiratory Respiratory effort: normal Respiratory: bilateral: CTA - Cardiovascular Rhythm: regular Heart Sounds: Present: S1 & S2. Absent: gallop, rub - Extremities Extremities: no ischemia, No edema, Full ROM - Abdominal General gastrointestinal: soft, non-tender, non-distended, normal bowel sounds - Integumentary Integumentary: Present: clear, warm, dry - Neurologic Neurologic: CNII-XII intact, moves all extremities HEART Score - HEART Score Age: < 45 Risk factors: 1-2 risk factors Troponin: Troponin T < 0.010 ng/mL (0.00-0.029) 04/23/21 10:49 Troponin: 1-3x normal limit - Critical Actions Critical Actions: 4-6 pts:12-16.6% risk of adverse cardiac event. Should be admitted Results - Labs CBC & Chem 7: 04/28/21 06:05 04/29/21 05:42 Labs: Laboratory Last Values WBC 6.0 K/mm3 (4.5-11.0) 04/28/21 06:05 RBC 5.77 M/mm3 (3.65-5.03) H 04/28/21 06:05 Hgb 13.2 gm/dl (10.1-14.3) 04/28/21 06:05 Hct 42.2 % (30.3-42.9) 04/28/21 06:05 MCV 73 fl (79-97) L 04/28/21 06:05 MCH 23 pg (28-32) L 04/28/21 06:05 MCHC 31 % (30-34) 04/28/21 06:05 RDW 21.0 % (13.2-15.2) H 04/28/21 06:05 Plt Count 253 K/mm3 (140-440) 04/28/21 06:05 Lymph % (Auto) 45.7 % (13.4-35.0) H 04/23/21 01:20 [place] % (Auto) 9.1 % (0.0-7.3) H 04/23/21 01:20 Eos % (Auto) 1.2 % (0.0-4.3) 04/23/21 01:20 Baso % (Auto) 1.0 % (0.0-1.8) 04/23/21 01:20 Lymph # (Auto) 2.7 K/mm3 (1.2-5.4) 04/23/21 01:20 [place] # (Auto) 0.5 K/mm3 (0.0-0.8) 04/23/21 01:20 Eos # (Auto) 0.1 K/mm3 (0.0-0.4) 04/23/21 01:20 Baso # (Auto) 0.1 K/mm3 (0.0-0.1) 04/23/21 01:20 Add Manual Diff Complete 04/25/21 05:30 Total Counted 100 04/25/21 05:30 Seg Neutrophils % 43.0 % (40.0-70.0) 04/23/21 01:20 Seg Neuts % (Manual) 52.0 % (40.0-70.0) 04/25/21 05:30 Lymphocytes % (Manual) 36.0 % (13.4-35.0) H 04/25/21 05:30 Monocytes % (Manual) 7.0 % (0.0-7.3) 04/25/21 05:30 Eosinophils % (Manual) 2.0 % (0.0-4.3) 04/25/21 05:30 Basophils % (Manual) 3.0 % (0.0-1.8) H 04/25/21 05:30 Nucleated RBC % 1.0 % (0.0-0.9) H 04/25/21 05:30 Seg Neutrophils # 2.5 K/mm3 (1.8-7.7) 04/23/21 01:20 Seg Neutrophils # Man 3.9 K/mm3 (1.8-7.7) 04/25/21 05:30 Band Neutrophils # 0.0 K/mm3 04/25/21 05:30 Lymphocytes # (Manual) 2.7 K/mm3 (1.2-5.4) 04/25/21 05:30 Abs React Lymphs (Man) 0.0 K/mm3 04/25/21 05:30 Monocytes # (Manual) 0.5 K/mm3 (0.0-0.8) 04/25/21 05:30 Eosinophils # (Manual) 0.2 K/mm3 (0.0-0.4) 04/25/21 05:30 Basophils # (Manual) 0.2 K/mm3 (0.0-0.1) H 04/25/21 05:30 Metamyelocytes # 0.0 K/mm3 04/25/21 05:30 Myelocytes # 0.0 K/mm3 04/25/21 05:30 Promyelocytes # 0.0 K/mm3 04/25/21 05:30 Blast Cells # 0.0 K/mm3 04/25/21 05:30 WBC Morphology Not Reportable 04/25/21 05:30 Hypersegmented Neuts Not Reportable 04/25/21 05:30 Hyposegmented Neuts Not Reportable 04/25/21 05:30 Hypogranular Neuts Not Reportable 04/25/21 05:30 Smudge Cells Not Reportable 04/25/21 05:30 Toxic Granulation Not Reportable 04/25/21 05:30 Toxic Vacuolation Not Reportable 04/25/21 05:30 Dohle Bodies Not Reportable 04/25/21 05:30 Pelger-Huet Anomaly Not Reportable 04/25/21 05:30 Suki Rods Not Reportable 04/25/21 05:30 Platelet Estimate Consistent w auto 04/25/21 05:30 Clumped Platelets Not Reportable 04/25/21 05:30 Plt Clumps, EDTA Not Reportable 04/25/21 05:30 Large Platelets Not Reportable 04/25/21 05:30 Giant Platelets Not Reportable 04/25/21 05:30 Platelet Satelliting Not Reportable 04/25/21 05:30 Plt Morphology Comment Not Reportable 04/25/21 05:30 RBC Morphology Not Reportable 04/25/21 05:30 Dimorphic RBCs Not Reportable 04/25/21 05:30 Polychromasia Not Reportable 04/25/21 05:30 Hypochromasia 1+ 04/25/21 05:30 Poikilocytosis Not Reportable 04/25/21 05:30 Anisocytosis Few 04/25/21 05:30 Microcytosis Not Reportable 04/25/21 05:30 Macrocytosis Not Reportable 04/25/21 05:30 Spherocytes Not Reportable 04/25/21 05:30 Pappenheimer Bodies Not Reportable 04/25/21 05:30 Sickle Cells Not Reportable 04/25/21 05:30 Target Cells 1+ 04/25/21 05:30 Tear Drop Cells Not Reportable 04/25/21 05:30 Ovalocytes Not Reportable 04/25/21 05:30 Helmet Cells Not Reportable 04/25/21 05:30 Yeung-[place] Bodies Not Reportable 04/25/21 05:30 [place] Rings Not Reportable 04/25/21 05:30 [place] Cells Not Reportable 04/25/21 05:30 Bite Cells Not Reportable 04/25/21 05:30 Crenated Cell Not Reportable 04/25/21 05:30 Elliptocytes Not Reportable 04/25/21 05:30 Acanthocytes (Spur) Not Reportable 04/25/21 05:30 Rouleaux Not Reportable 04/25/21 05:30 Hemoglobin C Crystals Not Reportable 04/25/21 05:30 Schistocytes Not Reportable 04/25/21 05:30 Malaria parasites Not Reportable 04/25/21 05:30 Aly Bodies Not Reportable 04/25/21 05:30 Hem Pathologist Commnt No 04/25/21 05:30 PT 16.8 Sec. (12.2-14.9) H 04/24/21 16:24 INR 1.30 (0.87-1.13) H 04/24/21 16:24 APTT 28.0 Sec. (24.2-36.6) 04/24/21 16:24 Sodium 135 mmol/L (137-145) L 04/29/21 05:42 Potassium 4.3 mmol/L (3.6-5.0) 04/29/21 05:42 Chloride 99.5 mmol/L (98-107) 04/29/21 05:42 Carbon Dioxide 26 mmol/L (22-30) 04/29/21 05:42 Anion Gap 14 mmol/L 04/29/21 05:42 BUN 25 mg/dL (7-17) H 04/29/21 05:42 Creatinine 1.0 mg/dL (0.6-1.2) 04/29/21 05:42 Estimated GFR > 60 ml/min 04/29/21 05:42 BUN/Creatinine Ratio 25 % 04/29/21 05:42 Glucose 80 mg/dL (65-100) 04/29/21 05:42 POC Glucose 107 mg/dL (70-105) H 04/24/21 21:22 Hemoglobin A1c 6.6 % (4-6) H 04/24/21 05:47 Lactic Acid 3.70 mmol/L (0.7-2.0) H* 04/24/21 13:10 Calcium 9.3 mg/dL (8.4-10.2) 04/29/21 05:42 Magnesium 1.90 mg/dL (1.7-2.3) 04/25/21 05:30 Total Bilirubin 1.20 mg/dL (0.1-1.2) 04/25/21 05:30 AST 27 units/L (5-40) 04/25/21 05:30 ALT 24 units/L (7-56) 04/25/21 05:30 Alkaline Phosphatase 202 units/L (35-129) H 04/25/21 05:30 Lactate Dehydrogenase 392 units/L (91-180) H 04/25/21 05:30 Total Creatine Kinase 59 units/L (30-135) 04/23/21 12:53 Troponin T < 0.010 ng/mL (0.00-0.029) 04/23/21 10:49 NT-Pro-B Natriuret Pep 5810 pg/mL (0-450) H 04/23/21 10:49 Total Protein 5.8 g/dL (6.3-8.2) L 04/25/21 05:30 Albumin 3.1 g/dL (3.9-5) L 04/25/21 05:30 Albumin/Globulin Ratio 1.1 % 04/25/21 05:30 Lipase 21 units/L (13-60) 04/23/21 10:49 TSH 4.330 mlU/mL (0.270-4.200) H 04/23/21 12:53 HCG, Quant < 2 mIU/mL (0-4) 04/23/21 12:53 Fluid Type Pleural 04/26/21 10:07 Fluid Color Yellow 04/26/21 10:07 Fluid Appearance Hazy 04/26/21 10:07 Fluid WBC 241 /mm3 04/26/21 10:07 Fluid RBC 3475 /mm3 04/26/21 10:07 Fluid Seg Neutrophils 20.0 % 04/26/21 10:07 Fluid Lymphocytes 79.0 % 04/26/21 10:07 Fluid Reactive Lymphs Not Reportable 04/26/21 10:07 Fluid Monocytes 1.0 % 04/26/21 10:07 Fluid Eosinophils Not Reportable 04/26/21 10:07 Fluid Basophils Not Reportable 04/26/21 10:07 Salicylates 0.6 mg/dL (2.8-20.0) L 04/23/21 12:53 Acetaminophen 5.0 ug/mL (10.0-30.0) L 04/23/21 12:53 Plasma/Serum Alcohol < 0.01 % (0-0.07) 04/23/21 12:53 Microbiology: Microbiology 04/23/21 12:53 Peripheral/Venous Blood Culture - Final NO GROWTH AFTER 5 DAYS 04/23/21 12:51 Peripheral/Venous Blood Culture - Final NO GROWTH AFTER 5 DAYS 04/26/21 10:07 Pleural Fluid - Pleura,Rt Lung Body Fluid Culture - Preliminary Matta/IV: Voiding Method Toilet Active Medications - Current Medications Current Medications: Generic Name Dose Route Start Last Admin Trade Name Freq PRN Reason Stop Dose Admin Acetaminophen 650 mg 04/24/21 01:58 Acetaminophen 325 Mg Tab PO Q4H PRN Pain MILD(1-3)/Fever >100.5/ADEN Aspirin 81 mg 04/25/21 10:00 04/28/21 10:36 Aspirin 81 Mg Tab Chew PO 81 mg QDAY BASSEM Administration Bumetanide 1 mg 04/28/21 18:00 04/29/21 06:28 Bumetanide 1 Mg/4 Ml Inj IV 1 mg BID@0600,1800 BASSEM Administration Carvedilol 6.25 mg 04/27/21 11:00 04/28/21 21:23 Carvedilol 6.25 Mg Tab PO 6.25 mg BID BASSEM Administration Cephalexin 500 mg 04/25/21 14:00 04/28/21 21:23 Cephalexin 500 Mg Cap PO 04/30/21 13:59 500 mg Q12HR BASSEM Administration Protocol Famotidine 20 mg 04/24/21 10:00 04/28/21 10:36 Famotidine 20 Mg Tab PO 20 mg QAM BASSEM Administration Hydromorphone HCl 0.5 mg 04/24/21 01:58 04/26/21 06:37 Hydromorphone 1 Mg/1 Ml Inj IV 0.5 mg Q3H PRN Administration Pain , Severe (7-10) Dobutamine HCl/Dextrose 500 mg in 250 mls @ 10.77 mls/hr 04/28/21 10:00 04/28/21 10:35 Dobutrex Drip 500mg/D5w 250ml IV 5 mcg/kg/min DIRECT BASSEM 10.77 mls/hr Administration Protocol 5 MCG/KG/MIN Metoclopramide HCl 5 mg 04/24/21 01:58 04/27/21 15:39 Metoclopramide 10 Mg/2 Ml Inj IV 5 mg Q6H PRN Administration Nausea And Vomiting Nicotine 14 mg 04/24/21 10:00 04/28/21 10:36 Nicotine 14 Mg/24 Hr Patch TD 14 mg QDAY BASSEM Administration Ondansetron HCl 4 mg 04/24/21 01:58 04/24/21 04:55 Ondansetron 4 Mg/2 Ml Inj IV 4 mg Q8H PRN Administration Nausea And Vomiting Oxycodone/Acetaminophen 1 tab 04/24/21 01:58 04/29/21 06:51 Oxycodone /Acetaminophen 5-325mg Tab PO 1 tab Q6H PRN Administration Pain, Moderate (4-6) Rivaroxaban 20 mg 04/24/21 17:00 04/28/21 10:36 Rivaroxaban 20 Mg Tab PO 20 mg DAILY BASSEM Administration Protocol Sodium Chloride 10 ml 04/24/21 10:00 04/28/21 21:27 Sodium Chloride 0.9% 10 Ml Flush Syringe IV 10 ml BID BASSEM Administration Sodium Chloride 10 ml 04/24/21 01:58 04/25/21 06:29 Sodium Chloride 0.9% 10 Ml Flush Syringe IV 10 ml PRN PRN Administration LINE FLUSH Spironolactone 25 mg 04/24/21 17:00 04/28/21 10:36 Spironolactone 25 Mg Tab PO 25 mg QDAY BASSEM Administration Nutrition/Malnutrition Assess - Dietary Evaluation Nutrition/Malnutrition Findings: Nutrition Notes Start: 04/24/21 14:30 Freq: Status: Active Protocol: Document 04/26/21 11:33 CW (Rec: 04/26/21 11:40 CW [email or web address]) Nutrition Notes Need for Assessment generated from: MD Order Initial or Follow up Reassessment Current Diagnosis Acute Kidney Injury,Heart Failure,Respiratory Failure, Stroke Other Pertinent Diagnosis malnutrition Current Diet Cardiac Labs/Tests Na 136 K 5.6 BUN 25 Cr 1.5 Pertinent Medications kionex (planned) spironolactone Kdur toresmide lasix Height 5 ft 8 in Weight 72.2 kg Odum Body Weight (kg) 63.63 BMI 24.2 Intake Prior to Admission Excellent Weight Status Appropriate Subjective/Other Information F/U for stable intakes. Pt reports having a good appetite and eating 100% of breakfast. Pt has yet to eat lunch d/t late breakfast. Pt reports that she plans to consume all of lunch at a later time. Pt denies recent weight loss. Pt likes receiving ONS. Will continue at this time until stable intake is established. Burn Absent Trauma Absent GI Symptoms None Food Allergy No Current % PO Good (75-100%) Minimum of two criteria No Fluid Accumulation Mild (non-severe) #1 Nutrition Diagnosis No nutrition diagnosis at this time Is patient on ventilator? No Is Patient Ambulatory and/or Out of Bed No REE-([facility]-confined to bed) 1068.632 Calculation Used for Recommendations [facility] Additional Notes protein needs: 43 - 58g (0.6 - 0.8 g/kgBW) fluid needs: per Nutrition Intervention Change Diet Order: Continue current order Add Supplement/Snack (indicate name/kcal Ensure Enlive QD /protein ) Provides kCal: 350 Provides Protein (gm) 20 Goal #1 Dayanna t least 75% of kcal and protein needs via PO Anticipated Discharge Needs: Cardiac Diet Follow-Up By: 04/30/21 Additional Comments F/U for stable intakes and need for ONS
[2021-04-29] MEDS: SPIRONOLACTONE 25 MG TAB PO SCH (09:50)
[2021-04-29] MEDS: FAMOTIDINE 20 MG TAB PO SCH (09:51)
[2021-04-29] MEDS: cephALEXin 500 MG CAP PO SCH ×2 (09:51→22:04)
[2021-04-29] MEDS: ASPIRIN 81 MG TAB CHEW PO SCH (09:51)
[2021-04-29] MEDS: carvediloL 6.25 MG TAB PO SCH ×2 (09:51→22:05)
[2021-04-29] MEDS: NICOTINE 14 MG/24 HR PATCH TD SCH (09:51)
[2021-04-29] MEDS: RIVAROXABAN 20 MG TAB PO SCH (09:51)
[2021-04-29] MEDS: diphenhydrAMINE 25 MG CAP PO PRN ×2 (11:35→22:07)
[2021-04-29] MEDS ORDERED: BUMETANIDE 1 MG/4 ML INJ IV SCH (12:30)
--- NOTE | 2021-04-29 12:43 | Progress Note ---
Assessment and Plan Heart failure with reduced ejection fraction in setting of dilated cardiomyopathy * Echocardiogram reviewed (04/24/2021): LVEF is 10%. Left ventricle is severely dilated. Severe global hypokinesis of the left ventricle. Transmitral Doppler flow pattern suggests restrictive physiology. RV is mildly dilated. LA is severely dilated. RVSP is 27 mmHg. Moderate TR. * Patient states she has been followed by [facility]. Records requested. * Continue diuresis: Bumex 1mg IV BID, Aldactone PO 25mg daily. * Continue GDMT with cardioprotective regimen: ASA, Coreg. No SAM in setting of recent SUSHANT and soft blood pressures. We will plan to resume SAM inhibitor as tolerated. * Reduce Dobutamine drip to 2.5mg/kg. * Due to severe cardiomyopathy and ventricular ectopy is observed on telemetry patient is recommended to wear LifeVest defibrillator. Order for LifeVest was placed. Per [employer] outbound call center representative patient previously has LifeVest issued in 12/2020 and has not returned LifeVest. [facility] states patient is not eligible for LifeVest placement at this time. Anticoagulation in setting of recent DVT and PE * Recently hospitalized at [place] for DVT and PE 5 months prior. Records requested. * Continue Xarelto 20mg PO Daily Coronary artery disease with history of AMI * Troponin is negative x2. AMI is ruled out Medical noncompliance * Patient is currently out of medications due to reported failure to follow-up with scheduled appointments. She reports she is currently indigent and without transportation which presents a significant beto to follow-up care efforts. DVT prophylaxis * Xarelto Will follow Patient will need to follow-up with [facility] within 1 to 2 weeks of discharge. This patient was seen in conjunction with Dr Griselda Mortensen who agrees with this assessment and plan of care Subjective Date of service: 04/29/21 Principal diagnosis: Acute on chronic HFrEF, Dilated CMP, Pleural effusion Interval history: Patient resting comfortably in chair. No shortness of breath or chest pain overnight Telemetry reviewed: Sinus rhythm 87. No events Objective Last Vital Signs Temp 96.8 F L 04/29/21 07:49 Pulse 87 04/29/21 09:51 Resp 17 04/29/21 08:39 BP 110/72 04/29/21 09:51 Pulse Ox 98 04/29/21 08:39 - Physical Examination General: No Apparent Distress HEENT: Positive: EOMI, Normocephaly, Mucus Membranes Moist Neck: Positive: neck supple, trachea midline, JVD/HJR Cardiac: Positive: Reg Rate and Rhythm, S1/S2 Lungs: Positive: Normal Exam, Normal Breath Sounds Neuro: Positive: Grossly Intact Abdomen: Positive: Soft, Active Bowel Sounds. Negative: Tender Skin: Negative: Rash Musculoskeletal: Normal Range of Motion Extremities: Present: upper extr. pulses, lower extr. pulses, +2 Edema - Labs and Meds Comprehensive Metabolic Panel 04/29/21 Range/Units 05:42 Sodium 135 L (137-145) mmol/L Potassium 4.3 (3.6-5.0) mmol/L Chloride 99.5 (98-107) mmol/L Carbon Dioxide 26 (22-30) mmol/L BUN 25 H (7-17) mg/dL Creatinine 1.0 (0.6-1.2) mg/dL Glucose 80 (65-100) mg/dL Calcium 9.3 (8.4-10.2) mg/dL - Imaging and Cardiology EKG: report reviewed, image reviewed Echo: report reviewed - Telemetry EKG Rhythm: Sinus Rhythm - EKG Sinus rhythms and dysrhythmias: sinus rhythm - Allied health notes Allied health notes reviewed: nursing
--- NOTE | 2021-04-29 13:47 | Progress Note ---
Assessment and Plan 35-year-old female with history of HTN, CHF, CVA and pleural effusion was found to be lethargic and her oxygen saturations are low at 82%. Difficult to arouse. Shortness of breath on minimal exertion and lying down. Noncompliant with her medications. No fever or chills. Patient sleeping on 2 litres O2. O2 saturation 96%. Patient bearly arousable. Able to get little history. Patient smokes at times. Denies alcohol or drug abuse. Not working . Not . Children 1. No known drug allergies. Patient to day alert, awake and says feeling better. No complaint of chest pain, shortness of breath or cough. Patient is on 3 litres o2. o2 saturation 97%. Patient afebrile. No leukocytosis. Chest xray done 04/26/21 reported decreased pleural effusion after right thoracentes. No pneumothorax after thoracentesis. Pleural fluid cell count WBC 241, RBC 3475. Pleural fluid chemistry and cytology results pending. - Patient Problems (1) Acute respiratory failure with hypoxia Current Visit: Yes Status: Acute Plan to address problem: O2 3 litres via nasal canula. Recommend albuterol/atrovent aerosol treatment. Rivaroxaban Famotidine. (2) Acute exacerbation of CHF (congestive heart failure) Current Visit: Yes Status: Acute Qualifiers: Heart failure type: combined systolic and diastolic Qualified Code(s): I50.43 - Acute on chronic combined systolic (congestive) and diastolic (congestive) heart failure Plan to address problem: Management as per cardiology. (3) Cardiorenal syndrome with renal failure Current Visit: Yes Status: Acute Plan to address problem: Management as per nephrology. (4) Hypertension Current Visit: Yes Status: Chronic Qualifiers: Hypertension type: essential hypertension Qualified Code(s): I10 - Essential (primary) hypertension Plan to address problem: Management as per primary care. (5) Nicotine dependence Current Visit: Yes Status: Chronic Qualifiers: Nicotine product type: cigarettes Plan to address problem: Counseled to stop smoking. PFTs as out patient. (6) Pleural effusion Current Visit: Yes Status: Acute Plan to address problem: Patient undergone right thoracentesis 04/26/21. Pleural fluid cell count WBC 241, RBC 3475. Pleural fluid chemistry and cytolog y results pending. Subjective Date of service: 04/29/21 Principal diagnosis: Acute on chronic HFrEF, Dilated CMP, Pleural effusion Interval history: Patient alert, awake and says feeling better. No complaint of chest pain, shortness of breath or cough. Patient is on 3 litres o2. o2 saturation 97%. Patient afebrile. No leukocytosis. Chest xray done 04/26/21 reported decreased pleural effusion after right thoracentes. No pneumothorax after thoracentesis. Pleural fluid cell count WBC 241, RBC 3475. Pleural fluid chemistry and cytology results pending. Objective Vital Signs - 12hr 04/29/21 04/29/21 04/29/21 02:00 03:56 07:49 Temperature 98.0 F 96.8 F L Pulse Rate 92 H 92 H 89 Pulse Rate [ Apical] Pulse Rate [ Left Radial] Respiratory 20 18 Rate Blood Pressure 113/90 109/76 O2 Sat by Pulse 99 100 Oximetry 04/29/21 04/29/21 04/29/21 08:39 09:50 09:51 Temperature Pulse Rate 87 87 Pulse Rate [ 88 Apical] Pulse Rate [ 88 Left Radial] Respiratory 17 Rate Blood Pressure 110/72 110/72 O2 Sat by Pulse 98 Oximetry Constitutional: no acute distress, alert, other (young female with normal respiratory effort at rest) Eyes: non-icteric ENT: oropharynx moist Neck: supple, no JVD Effort: normal Ascultation: Bilateral: diminished breath sounds, rhonchi (bases) Percussion: Right: dull (RLL region) Cardiovascular: regular rate and rhythm, other (S1,S2) Gastrointestinal: normoactive bowel sounds, soft, non-tender, non-distended Integumentary: normal Extremities: no cyanosis, no edema, pulses normal, no ischemia or petechiae Neurologic: normal mental status, non-focal exam, pupils equal and round, CN II- XII normal, motor strength normal and Psychiatric: mood appropriate, affect normal CBC and BMP: 04/28/21 06:05 04/29/21 05:42 ABG, PT/INR, D-dimer: PT/INR, D-dimer PT 16.8 Sec. (12.2-14.9) H 04/24/21 16:24 INR 1.30 (0.87-1.13) H 04/24/21 16:24 Abnormal lab findings: Abnormal Labs 04/23/21 04/23/2104/23/21 01:20 01:20 10:49 RBC 6.16 H Hgb Hct 45.5 H MCV 74 L MCH 23 L RDW 22.2 H Lymph % (Auto) 45.7 H [place] % (Auto) 9.1 H Lymphocytes % (Manual) Basophils % (Manual) Nucleated RBC % Basophils # (Manual) PT INR Sodium Potassium Chloride BUN 28 H Creatinine 1.4 H Glucose POC Glucose Hemoglobin A1c Lactic Acid Total Bilirubin 1.80 H Alkaline Phosphatase 213 H Lactate Dehydrogenase NT-Pro-B Natriuret Pep 5810 H Total Protein Albumin 3.7 L TSH Salicylates Acetaminophen 04/23/21 04/23/21 04/23/21 12:53 12:53 12:53 RBC Hgb Hct MCV MCH RDW Lymph % (Auto) [place] % (Auto) Lymphocytes % (Manual) Basophils % (Manual) Nucleated RBC % Basophils # (Manual) PT INR Sodium Potassium Chloride BUN Creatinine Glucose POC Glucose Hemoglobin A1c Lactic Acid 3.00 H* Total Bilirubin Alkaline Phosphatase Lactate Dehydrogenase NT-Pro-B Natriuret Pep Total Protein Albumin TSH 4.330 H Salicylates 0.6 L Acetaminophen 04/23/21 04/24/21 04/24/21 12:53 00:00 05:47 RBC Hgb Hct MCV MCH RDW Lymph % (Auto) [place] % (Auto) Lymphocytes % (Manual) Basophils % (Manual) Nucleated RBC % Basophils # (Manual) PT INR Sodium Potassium Chloride BUN Creatinine Glucose POC Glucose Hemoglobin A1c Lactic Acid 5.50 H* 3.40 H* Total Bilirubin Alkaline Phosphatase Lactate Dehydrogenase NT-Pro-B Natriuret Pep Total Protein Albumin TSH Salicylates Acetaminophen 5.0 L 04/24/21 04/24/21 04/24/21 05:47 05:47 13:10 RBC Hgb Hct MCV MCH RDW Lymph % (Auto) [place] % (Auto) Lymphocytes % (Manual) Basophils % (Manual) Nucleated RBC % Basophils # (Manual) PT INR Sodium Potassium Chloride BUN 26 H Creatinine Glucose 102 H POC Glucose Hemoglobin A1c 6.6 H Lactic Acid 3.70 H* Total Bilirubin Alkaline Phosphatase Lactate Dehydrogenase NT-Pro-B Natriuret Pep Total Protein Albumin TSH Salicylates Acetaminophen 04/24/21 04/24/21 04/24/21 16:24 16:24 21:22 RBC 6.46 H Hgb 14.7 H Hct 48.8 H MCV 76 L MCH 23 L RDW 22.5 H Lymph % (Auto) [place] % (Auto) Lymphocytes % (Manual) Basophils % (Manual) Nucleated RBC % Basophils # (Manual) PT 16.8 H INR 1.30 H Sodium Potassium Chloride BUN Creatinine Glucose POC Glucose 107 H Hemoglobin A1c Lactic Acid Total Bilirubin Alkaline Phosphatase Lactate Dehydrogenase NT-Pro-B Natriuret Pep Total Protein Albumin TSH Salicylates Acetaminophen 04/25/21 04/25/21 04/25/21 05:30 05:30 05:30 RBC 6.09 H Hgb Hct 45.2 H MCV 74 L MCH 22 L RDW 21.6 H Lymph % (Auto) [place] % (Auto) Lymphocytes % (Manual) 36.0 H Basophils % (Manual) 3.0 H Nucleated RBC % 1.0 H Basophils # (Manual) 0.2 H PT INR Sodium Potassium Chloride BUN 26 H Creatinine Glucose POC Glucose Hemoglobin A1c Lactic Acid Total Bilirubin Alkaline Phosphatase 202 H Lactate Dehydrogenase 392 H NT-Pro-B Natriuret Pep Total Protein 5.8 L Albumin 3.1 L TSH Salicylates Acetaminophen 04/26/21 04/26/21 04/26/21 06:15 06:15 18:14 RBC 6.08 H Hgb Hct 45.1 H MCV 74 L MCH 23 L RDW 21.6 H Lymph % (Auto) [place] % (Auto) Lymphocytes % (Manual) Basophils % (Manual) Nucleated RBC % Basophils # (Manual) PT INR Sodium 136 L 135 L Potassium 5.6 H D Chloride 97.9 L BUN 25 H 25 H Creatinine 1.5 H 1.3 H Glucose POC Glucose Hemoglobin A1c Lactic Acid Total Bilirubin Alkaline Phosphatase Lactate Dehydrogenase NT-Pro-B Natriuret Pep Total Protein Albumin TSH Salicylates Acetaminophen 04/27/21 04/28/21 04/28/21 09:23 06:05 06:05 RBC 5.77 H Hgb Hct MCV 73 L MCH 23 L RDW 21.0 H Lymph % (Auto) [place] % (Auto) Lymphocytes % (Manual) Basophils % (Manual) Nucleated RBC % Basophils # (Manual) PT INR Sodium 133 L Potassium Chloride 94.7 L 96.8 L BUN 27 H 27 H Creatinine Glucose 104 H POC Glucose Hemoglobin A1c Lactic Acid Total Bilirubin Alkaline Phosphatase Lactate Dehydrogenase NT-Pro-B Natriuret Pep Total Protein Albumin TSH Salicylates Acetaminophen 04/29/21 05:42 RBC Hgb Hct MCV MCH RDW Lymph % (Auto) [place] % (Auto) Lymphocytes % (Manual) Basophils % (Manual) Nucleated RBC % Basophils # (Manual) PT INR Sodium 135 L Potassium Chloride BUN 25 H Creatinine Glucose POC Glucose Hemoglobin A1c Lactic Acid Total Bilirubin Alkaline Phosphatase Lactate Dehydrogenase NT-Pro-B Natriuret Pep Total Protein Albumin TSH Salicylates Acetaminophen Allied health notes reviewed: nursing
[2021-04-29] MEDS: DOBUTamine/D5W 500 MG/250 ML 500 MG/250 ML BAG IV SCH (17:37)
[2021-04-30] MEDS: oxyCODONE /ACETAMINOPHEN 5-325MG TAB PO PRN (03:05)
[2021-04-30 05:55] LABS: Basophils % (Auto) 0.7 % (0.0-1.8); Eosinophils # (Auto) 0.1 K/mm3 (0.0-0.4); Eosinophils % (Auto) 1.3 % (0.0-4.3); Hematocrit 39.1 % (30.3-42.9); Hemoglobin 12.2 gm/dl (10.1-14.3); Lymphocytes # (Auto) 2.2 K/mm3 (1.2-5.4); Lymphocytes % (Auto) 41.4 % (13.4-35.0); Mean Corpuscular HGB Conc 31 % (30-34); Mean Corpuscular Volume 72 fl (79-97); Monocytes # (Auto) 0.6 K/mm3 (0.0-0.8); Monocytes % (Auto) 10.4 % (0.0-7.3); Platelet Count 246 K/mm3 (140-440); Red Blood Count 5.43 M/mm3 (3.65-5.03)
[2021-04-30 05:56] LABS: Red Cell Distribution Width 21.9 % (13.2-15.2)
[2021-04-30 05:59] LABS: BUN/Creatinine Ratio 22; Blood Urea Nitrogen 24 mg/dL (7-17); Calcium 8.9 mg/dL (8.4-10.2); Hemolysis Index 4
[2021-04-30] MEDS: BUMETANIDE 1 MG/4 ML INJ IV SCH (06:28)
[2021-04-30] MEDS: diphenhydrAMINE 25 MG CAP PO PRN (08:11)
[2021-04-30] MEDS: NICOTINE 14 MG/24 HR PATCH TD SCH (09:41)
[2021-04-30] MEDS: FAMOTIDINE 20 MG TAB PO SCH (09:41)
[2021-04-30] MEDS: ASPIRIN 81 MG TAB CHEW PO SCH (09:41)
[2021-04-30] MEDS: RIVAROXABAN 20 MG TAB PO SCH (09:42)
[2021-04-30] MEDS: cephALEXin 500 MG CAP PO SCH (09:42)
[2021-04-30] MEDS: SPIRONOLACTONE 25 MG TAB PO SCH (09:43)
[2021-04-30] MEDS: carvediloL 6.25 MG TAB PO SCH ×2 (09:43→21:49)
--- NOTE | 2021-04-30 10:42 | Progress Note ---
Assessment and Plan 35-year-old female with history of HTN, CHF, CVA and pleural effusion was found to be lethargic and her oxygen saturations are low at 82%. Difficult to arouse. Shortness of breath on minimal exertion and lying down. Noncompliant with her medications. No fever or chills. Patient sleeping on 2 litres O2. O2 saturation 96%. Patient bearly arousable. Able to get little history. Patient smokes at times. Denies alcohol or drug abuse. Not working . Not . Children 1. No known drug allergies. Patient sleeping. Patient is in deep sleep. Not responding to verbal stimuli. No acute respiratory distress. Patient is on 3 litres o2. o2 saturation 98%. Patient afebrile. No leukocytosis. Chest xray done 04/26/21 reported decreased pleural effusion after right thoracentes. No pneumothorax after thoracentesis. Pleural fluid cell count WBC 241, RBC 3475. Pleural fluid chemistry and cytology results still pending. - Patient Problems (1) Acute respiratory failure with hypoxia Current Visit: Yes Status: Acute Plan to address problem: O2 3 litres via nasal canula. Recommend albuterol/atrovent aerosol treatment. Rivaroxaban Famotidine. (2) Acute exacerbation of CHF (congestive heart failure) Current Visit: Yes Status: Acute Qualifiers: Heart failure type: combined systolic and diastolic Qualified Code(s): I50.43 - Acute on chronic combined systolic (congestive) and diastolic (congestive) heart failure Plan to address problem: Management as per cardiology. (3) Cardiorenal syndrome with renal failure Current Visit: Yes Status: Acute Plan to address problem: Management as per nephrology. (4) Hypertension Current Visit: Yes Status: Chronic Qualifiers: Hypertension type: essential hypertension Qualified Code(s): I10 - Essential (primary) hypertension Plan to address problem: Management as per primary care. (5) Nicotine dependence Current Visit: Yes Status: Chronic Qualifiers: Nicotine product type: cigarettes Plan to address problem: Counseled to stop smoking. PFTs as out patient. (6) Pleural effusion Current Visit: Yes Status: Acute Plan to address problem: Patient undergone right thoracentesis 04/26/21. Pleural fluid cell count WBC 241, RBC 3475. Pleural fluid chemistry and cytology results still pending. Subjective Date of service: 04/30/21 Principal diagnosis: Acute on chronic HFrEF, Dilated CMP, Pleural effusion Interval history: Patient sleeping. Patient is in deep sleep. Not responding to verbal stimuli. No acute respiratory distress. Patient is on 3 litres o2. o2 saturation 98%. Patient afebrile. No leukocytosis. Chest xray done 04/26/21 reported decreased pleural effusion after right thoracentes. No pneumothorax after thoracentesis. Pleural fluid cell count WBC 241, RBC 3475. Pleural fluid chemistry and cytology results still pending. Objective Vital Signs - 12hr 04/30/21 04/30/21 04/30/21 00:03 02:00 04:33 Temperature 98.0 F 97.5 F L Pulse Rate 91 H 83 83 Respiratory 20 20 Rate Blood Pressure 103/71 100/73 O2 Sat by Pulse 98 94 Oximetry 04/30/21 09:43 Temperature Pulse Rate 83 Respiratory Rate Blood Pressure 100/76 O2 Sat by Pulse Oximetry Constitutional: no acute distress, asleep, other (young female with normal respiratory effort at rest) Eyes: non-icteric ENT: oropharynx moist Neck: supple, no JVD Effort: normal Ascultation: Bilateral: diminished breath sounds, rhonchi (bases) Percussion: Right: dull (RLL region) Cardiovascular: regular rate and rhythm, other (S1,S2) Gastrointestinal: normoactive bowel sounds, soft, non-tender, non-distended Integumentary: normal Extremities: no cyanosis, no edema, pulses normal, no ischemia or petechiae Neurologic: normal mental status, non-focal exam, pupils equal and round, CN II- XII normal, motor strength normal and Psychiatric: mood appropriate, affect normal CBC and BMP: 04/30/21 05:13 04/30/21 05:13 ABG, PT/INR, D-dimer: PT/INR, D-dimer PT 16.8 Sec. (12.2-14.9) H 04/24/21 16:24 INR 1.30 (0.87-1.13) H 04/24/21 16:24 Abnormal lab findings: Abnormal Labs 04/23/21 04/23/21 04/23/21 01:20 01:20 10:49 RBC 6.16 H Hgb Hct 45.5 H MCV 74 L MCH 23 L RDW 22.2 H Lymph % (Auto) 45.7 H [place] % (Auto) 9.1 H Lymphocytes % (Manual) Basophils % (Manual) Nucleated RBC % Basophils # (Manual) PT INR Sodium Potassium Chloride BUN 28 H Creatinine 1.4 H Glucose POC Glucose Hemoglobin A1c Lactic Acid Total Bilirubin 1.80 H Alkaline Phosphatase 213 H Lactate Dehydrogenase NT-Pro-B Natriuret Pep 5810 H Total Protein Albumin 3.7 L TSH Salicylates Acetaminophen 04/23/21 04/23/21 04/23/21 12:53 12:53 12:53 RBC Hgb Hct MCV MCH RDW Lymph % (Auto) [place] % (Auto) Lymphocytes % (Manual) Basophils % (Manual) Nucleated RBC % Basophils # (Manual) PT INR Sodium Potassium Chloride BUN Creatinine Glucose POC Glucose Hemoglobin A1c Lactic Acid 3.00 H* Total Bilirubin Alkaline Phosphatase Lactate Dehydrogenase NT-Pro-B Natriuret Pep Total Protein Albumin TSH 4.330 H Salicylates 0.6 L Acetaminophen 04/23/21 04/24/21 04/24/21 12:53 00:00 05:47 RBC Hgb Hct MCV MCH RDW Lymph % (Auto) [place] % (Auto) Lymphocytes % (Manual) Basophils % (Manual) Nucleated RBC % Basophils # (Manual) PT INR Sodium Potassium Chloride BUN Creatinine Glucose POC Glucose Hemoglobin A1c Lactic Acid 5.50 H* 3.40 H* Total Bilirubin Alkaline Phosphatase Lactate Dehydrogenase NT-Pro-B Natriuret Pep Total Protein Albumin TSH Salicylates Acetaminophen 5.0 L 04/24/21 04/24/21 04/24/21 05:47 05:47 13:10 RBC Hgb Hct MCV MCH RDW Lymph % (Auto) [place] % (Auto) Lymphocytes % (Manual) Basophils % (Manual) Nucleated RBC % Basophils # (Manual) PT INR Sodium Potassium Chloride BUN 26 H Creatinine Glucose 102 H POC Glucose Hemoglobin A1c 6.6 H Lactic Acid 3.70 H* Total Bilirubin Alkaline Phosphatase Lactate Dehydrogenase NT-Pro-B Natriuret Pep Total Protein Albumin TSH Salicylates Acetaminophen 04/24/21 04/24/21 04/24/21 16:24 16:24 21:22 RBC 6.46 H Hgb 14.7 H Hct 48.8 H MCV 76 L MCH 23 L RDW 22.5 H Lymph % (Auto) [place] % (Auto) Lymphocytes % (Manual) Basophils % (Manual) Nucleated RBC % Basophils # (Manual) PT 16.8 H INR 1.30 H Sodium Potassium Chloride BUN Creatinine Glucose POC Glucose 107 H Hemoglobin A1c Lactic Acid Total Bilirubin Alkaline Phosphatase Lactate Dehydrogenase NT-Pro-B Natriuret Pep Total Protein Albumin TSH Salicylates Acetaminophen 04/25/21 04/25/21 04/25/21 05:30 05:30 05:30 RBC 6.09 H Hgb Hct 45.2 H MCV 74 L MCH 22 L RDW 21.6 H Lymph % (Auto) [place] % (Auto) Lymphocytes % (Manual) 36.0 H Basophils % (Manual) 3.0 H Nucleated RBC % 1.0 H Basophils # (Manual) 0.2 H PT INR Sodium Potassium Chloride BUN 26 H Creatinine Glucose POC Glucose Hemoglobin A1c Lactic Acid Total Bilirubin Alkaline Phosphatase 202 H Lactate Dehydrogenase 392 H NT-Pro-B Natriuret Pep Total Protein 5.8 L Albumin 3.1 L TSH Salicylates Acetaminophen 04/26/21 04/26/21 04/26/21 06:15 06:15 18:14 RBC 6.08 H Hgb Hct 45.1 H MCV 74 L MCH 23 L RDW 21.6 H Lymph % (Auto) [place] % (Auto) Lymphocytes % (Manual) Basophils % (Manual) Nucleated RBC % Basophils # (Manual) PT INR Sodium 136 L 135 L Potassium 5.6 H D Chloride 97.9 L BUN 25 H 25 H Creatinine 1.5 H 1.3 H Glucose POC Glucose Hemoglobin A1c Lactic Acid Total Bilirubin Alkaline Phosphatase Lactate Dehydrogenase NT-Pro-B Natriuret Pep Total Protein Albumin TSH Salicylates Acetaminophen 04/27/21 04/28/21 04/28/21 09:23 06:05 06:05 RBC 5.77 H Hgb Hct MCV 73 L MCH 23 L RDW 21.0 H Lymph % (Auto) [place] % (Auto) Lymphocytes % (Manual) Basophils % (Manual) Nucleated RBC % Basophils # (Manual) PT INR Sodium 133 L Potassium Chloride 94.7 L 96.8 L BUN 27 H 27 H Creatinine Glucose 104 H POC Glucose Hemoglobin A1c Lactic Acid Total Bilirubin Alkaline Phosphatase Lactate Dehydrogenase NT-Pro-B Natriuret Pep Total Protein Albumin TSH Salicylates Acetaminophen 04/29/21 04/30/21 04/30/21 05:42 05:13 05:13 RBC 5.43 H Hgb Hct MCV 72 L MCH 22 L RDW 21.9 H Lymph % (Auto) 41.4 H [place] % (Auto) 10.4 H Lymphocytes % (Manual) Basophils % (Manual) Nucleated RBC % Basophils # (Manual) PT INR Sodium 135 L 133 L Potassium Chloride 96.8 L BUN 25 H 24 H Creatinine Glucose POC Glucose Hemoglobin A1c Lactic Acid Total Bilirubin Alkaline Phosphatase Lactate Dehydrogenase NT-Pro-B Natriuret Pep Total Protein Albumin TSH Salicylates Acetaminophen Allied health notes reviewed: nursing
--- NOTE | 2021-04-30 11:49 | Progress Note ---
Assessment and Plan Heart failure with reduced ejection fraction in setting of dilated cardiomyopathy * Echocardiogram reviewed (04/24/2021): LVEF is 10%. Left ventricle is severely dilated. Severe global hypokinesis of the left ventricle. Transmitral Doppler flow pattern suggests restrictive physiology. RV is mildly dilated. LA is severely dilated. RVSP is 27 mmHg. Moderate TR. * Patient states she has been followed by [facility]. Records requested. * Optimize volume control: Convert Bumex to 1mg p.o. BID, Aldactone PO 25mg daily. * Continue GDMT with cardioprotective regimen: ASA, Coreg. No SAM in setting of recent SUSHANT and soft blood pressures. We will plan to resume SAM inhibitor as tolerated. * Discontinue dobutamine gtt. * Due to severe cardiomyopathy and ventricular ectopy is observed on telemetry patient is recommended to wear LifeVest defibrillator. Patient is currently in possession of LifeVest placed in December 2020 but reports it is damaged due to repeated drops. [facility] c s s representative is aware that patient needs to have LifeVest serviced/replaced and states she is not eligible for new LifeVest placement until equipment is recovered. Patient stated she will ask her sister to deliver LifeVest to hospital today. Alternately patient may coordinate with [facility] c s s representative to facilitate service. Anticoagulation in setting of recent DVT and PE * Recently hospitalized at [facility] for DVT and PE 5 months prior. Records requested. * Continue Xarelto 20mg PO Daily Coronary artery disease with history of AMI * Troponin is negative x2. AMI is ruled out Medical noncompliance * Patient is currently out of medications due to reported failure to follow-up with scheduled appointments. She reports she is currently living with her sister and without transportation which presents a significant beto to follow-up care efforts. DVT prophylaxis * Xarelto Home regimen is currently resumed. Patient may discharge from cardiac standpoint once LifeVest is either placed or [facility] c s s representative has coordinated service appointment. Patient will need to follow-up with [facility] within 1 to 2 weeks of discharge. This patient was seen in conjunction with Dr Griselda Mortensen who agrees with this assessment and plan of care Subjective Date of service: 04/30/21 Principal diagnosis: Acute on chronic HFrEF, Dilated CMP, Pleural effusion Interval history: Patient resting comfortably in chair at bedside. No shortness of breath or chest pain overnight. Telemetry reviewed: Sinus rhythm 83. No events Objective Vital Signs Temp Pulse Pulse Pulse Resp BP BP 04/30/21 10:00 100 H 100 H 20 04/30/21 09:43 83 100/76 04/30/21 04:33 97.5 F L 83 20 100/73 04/30/21 02:00 83 04/30/21 00:03 98.0 F 91 H 20 103/71 04/29/21 22:05 96 H 108/64 04/29/21 20:31 106 H 20 04/29/21 19:41 97.5 F L 96 H 20 108/64 04/29/21 16:52 97.2 F L 96 H 18 111/80 04/29/21 14:11 97.8 F 87 17 108/67 Pulse Ox 04/30/21 10:00 98 04/30/21 09:43 04/30/21 04:33 94 04/30/21 02:00 04/30/21 00:03 98 04/29/21 22:05 04/29/21 20:31 98 04/29/21 19:41 94 04/29/21 16:52 100 04/29/21 14:11 97 - Physical Examination General: No Apparent Distress HEENT: Positive: EOMI, Normocephaly, Mucus Membranes Moist Neck: Positive: neck supple, trachea midline, JVD/HJR Cardiac: Positive: Reg Rate and Rhythm, S1/S2 Lungs: Positive: Normal Exam, Normal Breath Sounds Neuro: Positive: Grossly Intact Abdomen: Positive: Soft, Active Bowel Sounds. Negative: Tender Skin: Negative: Rash Musculoskeletal: Normal Range of Motion Extremities: Present: upper extr. pulses, lower extr. pulses, +1 Edema - Labs and Meds CBC 04/30/21 Range/Units 05:13 WBC 5.4 (4.5-11.0) K/mm3 RBC 5.43 H (3.65-5.03) M/mm3 Hgb 12.2 (10.1-14.3) gm/dl Hct 39.1 (30.3-42.9) % Plt Count 246 (140-440) K/mm3 Lymph # (Auto) 2.2 (1.2-5.4) K/mm3 [place] # (Auto) 0.6 (0.0-0.8) K/mm3 Eos # (Auto) 0.1 (0.0-0.4) K/mm3 Baso # (Auto) 0.0 (0.0-0.1) K/mm3 Comprehensive Metabolic Panel 04/30/21 04/30/21 Range/Units 05:13 05:13 Sodium 133 L (137-145) mmol/L Potassium 4.2 (3.6-5.0) mmol/L Chloride 96.8 L (98-107) mmol/L Carbon Dioxide 28 (22-30) mmol/L BUN 24 H (7-17) mg/dL Creatinine 1.1 1.1 (0.6-1.2) mg/dL Glucose 88 (65-100) mg/dL Calcium 8.9 (8.4-10.2) mg/dL - Imaging and Cardiology EKG: report reviewed, image reviewed Echo: report reviewed - Telemetry EKG Rhythm: Sinus Rhythm - EKG Sinus rhythms and dysrhythmias: sinus rhythm - Allied health notes Allied health notes reviewed: nursing
--- NOTE | 2021-04-30 14:24 | Progress Note ---
Assessment and Plan Assessment and plan: Acute respiratory failure with hypoxia Hypoxia secondary to CHF and bilateral pleural effusion IV Lasix Acute on chronic systolic CHF Echocardiogram shows EF 10% Daily weights and intake and output Cardiology consulted and he has been evaluated Hypertension Continue antihypertensives Nicotine dependence Patient counseled and started on NicoDerm patches SUSHANT (acute kidney injury) Secondary to vasomotor nephropathy Improving DVT prophylaxis On heparin and GI prophylaxis Hyperkalemia Gave Kayexalate SUSHANT Cr 1.5 on 04/26 Hold diuretics, recheck in am Elevated Lactic acid. No signs or symptoms of sepsis 04/24/21 Patient admitted yesterday for acute respiratory failure due to CHF exacerbation and bilateral pleural effusion. Continue supplemental Oxygen. Cardiology and Pulmonology consulted. 04/25/21 Patient with acute respiratory failure due to acute on chronic systolic CHF and bilateral pleural effusions. Echo shows EF 10%. She also has bilateral pleural effusions, followed here by Pulmonology. I discussed with cardiology. 04/26/21 Patient with acute respiratory failure due to acute on chronic systolic CHF and bilateral pleural effusions. She had thoracentesis today for moderate left pleural effusion. She tells me she does not have a PCP or Electronic Organ Technician. She was seen at [facility] last time but does not have a Primary Electronic Organ Technician. Today Cr 1.5 therefore hold Torsemide, repeat in am. Also Potassium 5.6, ordered Kayexalate. 04/27/21 Patient with acute resp failure due to acute on chronic systolic CHF and bilateral pleural effusions. s/p thoracentesis yesterday. She has swollen right breast with firm area on lower part, She tells me it has been swollen for 5 months and she had mammogram about 2 months ago at [facility] and was told it was negative. I have requested Mammogram report. BP borderline low at 93/66. I discussed with Cardiology. He will adjust medications. 04/28/21 Patient with acute respiratory failure due to acute on chronic systolic CHF and bilateral pleural effusions. s/p thoracentesis. She has swollen right breast with firm area on lower part, She tells me it has been swollen for 5 months and she had mammogram about 2 months ago at [facility] and was told it was negative. I have requested Mammogram report. Patient was seen by Electronic Organ Technician today and Dobutamine drip ordered. Also cardiology recommends Life vest prior to discharge. 04/29/21. Cont. dobutamine per Cardiology recommendations. Await Lifevest. Cont. GDMT for heart failure. Bumex and spironolactone for diuresis. 04/30/21. Cardiology reports Patient may discharge from cardiac standpoint once LifeVest is either placed or [employer] specialty representative has coordinated service appoin tment. Patient will need to follow-up with [facility] failure clinic within 1 to 2 weeks of discharge. History Interval history: No new issues overnight Hospitalist Physical - Constitutional Vitals: Temp Pulse Resp BP Pulse Ox 97.5 F L 100 H 20 106/76 98 04/30/21 04:33 04/30/21 10:00 04/30/21 10:00 04/30/21 09:43 04/30/21 10:00 General appearance: Present: no acute distress - EENT Eyes: Present: PERRL, EOM intact ENT: hearing intact, clear oral mucosa, dentition normal - Neck Neck: Present: supple, normal ROM - Respiratory Respiratory effort: normal Respiratory: bilateral: CTA - Cardiovascular Rhythm: regular Heart Sounds: Present: S1 & S2. Absent: gallop, rub - Extremities Extremities: no ischemia, No edema, Full ROM - Abdominal General gastrointestinal: soft, non-tender, non-distended, normal bowel sounds - Integumentary Integumentary: Present: clear, warm, dry - Neurologic Neurologic: CNII-XII intact, moves all extremities HEART Score - HEART Score Age: < 45 Risk factors: 1-2 risk factors Troponin: Troponin T < 0.010 ng/mL (0.00-0.029) 04/23/21 10:49 Troponin: 1-3x normal limit - Critical Actions Critical Actions: 4-6 pts:12-16.6% risk of adverse cardiac event. Should be admitted Results - Labs CBC & Chem 7: 04/30/21 05:13 04/30/21 05:13 Labs: Laboratory Last Values WBC 5.4 K/mm3 (4.5-11.0) 04/30/21 05:13 RBC 5.43 M/mm3 (3.65-5.03) H 04/30/21 05:13 Hgb 12.2 gm/dl (10.1-14.3) 04/30/21 05:13 Hct 39.1 % (30.3-42.9) 04/30/21 05:13 MCV 72 fl (79-97) L 04/30/21 05:13 MCH 22 pg (28-32) L 04/30/21 05:13 MCHC 31 % (30-34) 04/30/21 05:13 RDW 21.9 % (13.2-15.2) H 04/30/21 05:13 Plt Count 246 K/mm3 (140-440) 04/30/21 05:13 Lymph % (Auto) 41.4 % (13.4-35.0) H 04/30/21 05:13 [place] % (Auto) 10.4 % (0.0-7.3) H 04/30/21 05:13 Eos % (Auto) 1.3 % (0.0-4.3) 04/30/21 05:13 Baso % (Auto) 0.7 % (0.0-1.8) 04/30/21 05:13 Lymph # (Auto) 2.2 K/mm3 (1.2-5.4) 04/30/21 05:13 Imperial # (Auto) 0.6 K/mm3 (0.0-0.8) 04/30/21 05:13 Eos # (Auto) 0.1 K/mm3 (0.0-0.4) 04/30/21 05:13 Baso # (Auto) 0.0 K/mm3 (0.0-0.1) 04/30/21 05:13 Add Manual Diff Complete 04/25/21 05:30 Total Counted 100 04/25/21 05:30 Seg Neutrophils % 46.2 % (40.0-70.0) 04/30/21 05:13 Seg Neuts % (Manual) 52.0 % (40.0-70.0) 04/25/21 05:30 Lymphocytes % (Manual) 36.0 % (13.4-35.0) H 04/25/21 05:30 Monocytes % (Manual) 7.0 % (0.0-7.3) 04/25/21 05:30 Eosinophils % (Manual) 2.0 % (0.0-4.3) 04/25/21 05:30 Basophils % (Manual) 3.0 % (0.0-1.8) H 04/25/21 05:30 Nucleated RBC % 1.0 % (0.0-0.9) H 04/25/21 05:30 Seg Neutrophils # 2.5 K/mm3 (1.8-7.7) 04/30/21 05:13 Seg Neutrophils # Man 3.9 K/mm3 (1.8-7.7) 04/25/21 05:30 Band Neutrophils # 0.0 K/mm3 04/25/21 05:30 Lymphocytes # (Manual) 2.7 K/mm3 (1.2-5.4) 04/25/21 05:30 Abs React Lymphs (Man) 0.0 K/mm3 04/25/21 05:30 Monocytes # (Manual) 0.5 K/mm3 (0.0-0.8) 04/25/21 05:30 Eosinophils # (Manual) 0.2 K/mm3 (0.0-0.4) 04/25/21 05:30 Basophils # (Manual) 0.2 K/mm3 (0.0-0.1) H 04/25/21 05:30 Metamyelocytes # 0.0 K/mm3 04/25/21 05:30 Myelocytes # 0.0 K/mm3 04/25/21 05:30 Promyelocytes # 0.0 K/mm3 04/25/21 05:30 Blast Cells # 0.0 K/mm3 04/25/21 05:30 WBC Morphology Not Reportable 04/25/21 05:30 Hypersegmented Neuts Not Reportable 04/25/21 05:30 Hyposegmented Neuts Not Reportable 04/25/21 05:30 Hypogranular Neuts Not Reportable 04/25/21 05:30 Smudge Cells Not Reportable 04/25/21 05:30 Toxic Granulation Not Reportable 04/25/21 05:30 Toxic Vacuolation Not Reportable 04/25/21 05:30 Dohle Bodies Not Reportable 04/25/21 05:30 Pelger-Huet Anomaly Not Reportable 04/25/21 05:30 Suki Rods Not Reportable 04/25/21 05:30 Platelet Estimate Consistent w auto 04/25/21 05:30 Clumped Platelets Not Reportable 04/25/21 05:30 Plt Clumps, EDTA Not Reportable 04/25/21 05:30 Large Platelets Not Reportable 04/25/21 05:30 Giant Platelets Not Reportable 04/25/21 05:30 Platelet Satelliting Not Reportable 04/25/21 05:30 Plt Morphology Comment Not Reportable 04/25/21 05:30 RBC Morphology Not Reportable 04/25/21 05:30 Dimorphic RBCs Not Reportable 04/25/21 05:30 Polychromasia Not Reportable 04/25/21 05:30 Hypochromasia 1+ 04/25/21 05:30 Poikilocytosis Not Reportable 04/25/21 05:30 Anisocytosis Few 04/25/21 05:30 Microcytosis Not Reportable 04/25/21 05:30 Macrocytosis Not Reportable 04/25/21 05:30 Spherocytes Not Reportable 04/25/21 05:30 Pappenheimer Bodies Not Reportable 04/25/21 05:30 Sickle Cells Not Reportable 04/25/21 05:30 Target Cells 1+ 04/25/21 05:30 Tear Drop Cells Not Reportable 04/25/21 05:30 Ovalocytes Not Reportable 04/25/21 05:30 Helmet Cells Not Reportable 04/25/21 05:30 Yeung-Paden Bodies Not Reportable 04/25/21 05:30 [place] Rings Not Reportable 04/25/21 05:30 [place] Cells Not Reportable 04/25/21 05:30 Bite Cells Not Reportable 04/25/21 05:30 Crenated Cell Not Reportable 04/25/21 05:30 Elliptocytes Not Reportable 04/25/21 05:30 Acanthocytes (Spur) Not Reportable 04/25/21 05:30 Rouleaux Not Reportable 04/25/21 05:30 Hemoglobin C Crystals Not Reportable 04/25/21 05:30 Schistocytes Not Reportable 04/25/21 05:30 Malaria parasites Not Reportable 04/25/21 05:30 Aly Bodies Not Reportable 04/25/21 05:30 Hem Pathologist Commnt No 04/25/21 05:30 PT 16.8 Sec. (12.2-14.9) H 04/24/21 16:24 INR 1.30 (0.87-1.13) H 04/24/21 16:24 APTT 28.0 Sec. (24.2-36.6) 04/24/21 16:24 Sodium 133 mmol/L (137-145) L 04/30/21 05:13 Potassium 4.2 mmol/L (3.6-5.0) 04/30/21 05:13 Chloride 96.8 mmol/L (98-107) L 04/30/21 05:13 Carbon Dioxide 28 mmol/L (22-30) 04/30/21 05:13 Anion Gap 12 mmol/L 04/30/21 05:13 BUN 24 mg/dL (7-17) H 04/30/21 05:13 Creatinine 1.1 mg/dL (0.6-1.2) 04/30/21 05:13 Creatinine 1.1 mg/dL (0.6-1.2) 04/30/21 05:13 Estimated GFR > 60 ml/min 04/30/21 05:13 Estimated GFR > 60 ml/min 04/30/21 05:13 BUN/Creatinine Ratio 22 % 04/30/21 05:13 Glucose 88 mg/dL (65-100) 04/30/21 05:13 POC Glucose 88 mg/dL (70-105) 04/30/21 07:34 Hemoglobin A1c 6.6 % (4-6) H 04/24/21 05:47 Lactic Acid 3.70 mmol/L (0.7-2.0) H* 04/24/21 13:10 Calcium 8.9 mg/dL (8.4-10.2) 04/30/21 05:13 Magnesium 1.90 mg/dL (1.7-2.3) 04/25/21 05:30 Total Bilirubin 1.20 mg/dL (0.1-1.2) 04/25/21 05:30 AST 27 units/L (5-40) 04/25/21 05:30 ALT 24 units/L (7-56) 04/25/21 05:30 Alkaline Phosphatase 202 units/L (35-129) H 04/25/21 05:30 Lactate Dehydrogenase 392 units/L (91-180) H 04/25/21 05:30 Total Creatine Kinase 59 units/L (30-135) 04/23/21 12:53 Troponin T < 0.010 ng/mL (0.00-0.029) 04/23/21 10:49 NT-Pro-B Natriuret Pep 5810 pg/mL (0-450) H 04/23/21 10:49 Total Protein 5.8 g/dL (6.3-8.2) L 04/25/21 05:30 Albumin 3.1 g/dL (3.9-5) L 04/25/21 05:30 Albumin/Globulin Ratio 1.1 % 04/25/21 05:30 Lipase 21 units/L (13-60) 04/23/21 10:49 TSH 4.330 mlU/mL (0.270-4.200) H 04/23/21 12:53 HCG, Quant < 2 mIU/mL (0-4) 04/23/21 12:53 Fluid Type Pleural 04/26/21 10:07 Fluid Color Yellow 04/26/21 10:07 Fluid Appearance Hazy 04/26/21 10:07 Fluid WBC 241 /mm3 04/26/21 10:07 Fluid RBC 3475 /mm3 04/26/21 10:07 Fluid Seg Neutrophils 20.0 % 04/26/21 10:07 Fluid Lymphocytes 79.0 % 04/26/21 10:07 Fluid Reactive Lymphs Not Reportable 04/26/21 10:07 Fluid Monocytes 1.0 % 04/26/21 10:07 Fluid Eosinophils Not Reportable 04/26/21 10:07 Fluid Basophils Not Reportable 04/26/21 10:07 Salicylates 0.6 mg/dL (2.8-20.0) L 04/23/21 12:53 Acetaminophen 5.0 ug/mL (10.0-30.0) L 04/23/21 12:53 Plasma/Serum Alcohol < 0.01 % (0-0.07) 04/23/21 12:53 Microbiology: Microbiology 04/26/21 10:07 Pleural Fluid - Pleura,Rt Lung Body Fluid Culture - Final Matta/IV: Voiding Method Toilet Active Medications - Current Medications Current Medications: Generic Name Dose Route Start Last Admin Trade Name Freq PRN Reason Stop Dose Admin Acetaminophen 650 mg 04/24/21 01:58 Acetaminophen 325 Mg Tab PO Q4H PRN Pain MILD(1-3)/Fever >100.5/ADEN Aspirin 81 mg 04/25/21 10:00 04/30/21 09:41 Aspirin 81 Mg Tab Chew PO 81 mg QDAY BASSEM Administration Bumetanide 1 mg 04/30/21 22:00 Bumetanide 1 Mg Tab PO BID BASSEM Carvedilol 6.25 mg 04/27/21 11:00 04/30/21 09:43 Carvedilol 6.25 Mg Tab PO 6.25 mg BID BASSEM Administration Diphenhydramine HCl 25 mg 04/29/21 11:00 04/30/21 08:11 Diphenhydramine 25 Mg Cap PO 25 mg Q6H PRN Administration Itching Famotidine 20 mg 04/24/21 10:00 04/30/21 09:41 Famotidine 20 Mg Tab PO 20 mg QAM BASSEM Administration Hydromorphone HCl 0.5 mg 04/24/21 01:58 04/26/21 06:37 Hydromorphone 1 Mg/1 Ml Inj IV 0.5 mg Q3H PRN Administration Pain , Severe (7-10) Metoclopramide HCl 5 mg 04/24/21 01:58 04/27/21 15:39 Metoclopramide 10 Mg/2 Ml Inj IV 5 mg Q6H PRN Administration Nausea And Vomiting Nicotine 14 mg 04/24/21 10:00 04/30/21 09:41 Nicotine 14 Mg/24 Hr Patch TD 14 mg QDAY BASSEM Administration Ondansetron HCl 4 mg 04/24/21 01:58 04/24/21 04:55 Ondansetron 4 Mg/2 Ml Inj IV 4 mg Q8H PRN Administration Nausea And Vomiting Oxycodone/Acetaminophen 1 tab 04/24/21 01:58 04/30/21 03:05 Oxycodone /Acetaminophen 5-325mg Tab PO 1 tab Q6H PRN Administration Pain, Moderate (4-6) Rivaroxaban 20 mg 04/24/21 17:00 04/30/21 09:42 Rivaroxaban 20 Mg Tab PO 20 mg DAILY BASSEM Administration Protocol Sodium Chloride 10 ml 04/24/21 10:00 04/30/21 09:42 Sodium Chloride 0.9% 10 Ml Flush Syringe IV 10 ml BID BASSEM Administration Sodium Chloride 10 ml 04/24/21 01:58 04/25/21 06:29 Sodium Chloride 0.9% 10 Ml Flush Syringe IV 10 ml PRN PRN Administration LINE FLUSH Spironolactone 25 mg 04/24/21 17:00 04/30/21 09:43 Spironolactone 25 Mg Tab PO 25 mg QDAY BASSEM Administration Nutrition/Malnutrition Assess - Dietary Evaluation Nutrition/Malnutrition Findings: Nutrition Notes Start: 04/24/21 14:30 Freq: Status: Active Protocol: Document 04/30/21 12:36 (Rec: 04/30/21 12:37 [id number]) Nutrition Notes Initial or Follow up Brief Note Current Diagnosis Acute Kidney Injury,Heart Failure,Respiratory Failure, Stroke Current Diet Cardiac Subjective/Other Information FU for intakes. Pt reports eating 100% of meals and ONS. Nutrition Intervention Follow-Up By: 05/07/21 Additional Comments F/U for stable intakes
[2021-04-30] MEDS: BUMETANIDE 1 MG TAB PO SCH (21:49)
--- NOTE | 2021-05-01 08:44 | Discharge Summary ---
Providers - Providers Date of Admission: 04/24/21 13:13 Date of discharge: 05/01/21 Attending physician: PARMJIT BAR 04/24/21 10:25 Consult to Physician [CONS] Routine Comment: Consulting Provider: RADHA MASON Physician Instructions: Reason For Exam: CHF 04/24/21 10:26 Consult to Physician [CONS] Routine Comment: Consulting Provider: JAYLEN WOODSON Physician Instructions: Reason For Exam: Bilateral pleural effusions 04/25/21 11:20 Consult to Case Management [CONS] Routine Services Needed at Discharge: Front Window Cashier Notified:: case management Consult to Wound/ET Nurse [CONS] Routine Reason For Exam: wound eval 04/25/21 15:30 Physical Therapy Evaluation and Treat [CONS] Routine Comment: PT/OT to eval and treat Reason For Exam: difficulty walking 04/26/21 17:24 Occupational Therapy Evaluate and Treat [CONS] Routine Comment: Reason For Exam: eval and treat Primary care physician: HEALTH POLICY MANAGER Hospitalization Reason for admission: Acute systolic heart failure Condition: Serious Hospital course: 35-year-old female with a significant history of heart failure, AMI plus CVA in 10/2020, hypertension, recent DVT plus PE 5 months ago, medical noncompliance, tobacco use, crack cocaine use previously followed by [facility] in the past who presented to [facility] with complaint of progressive weakness times several weeks and severe exhaustion with minimal exertion. Patient had been out of her anticoagulant and diuretic for several weeks. She stated she is currently indigent and thus follow-up care has been a significant beto for her. She is currently prescribed Xarelto due to recent PE and DVT. The patient was admitted with diagnosis of acute on chronic systolic heart failure, acute hypoxic respiratory failure, hypertension, nicotine dependence, acute kidney injury secondary to vasomotor nephropathy, hyperkalemia. Cardiology was consulted for heart failure. Daily Hospital course 04/24/21 Patient admitted yesterday for acute respiratory failure due to CHF exacerbation and bilateral pleural effusion. Continue supplemental Oxygen. Cardiology and Pulmonology consulted. 04/25/21 Patient with acute respiratory failure due to acute on chronic systolic CHF and bilateral pleural effusions. Echo shows EF 10%. She also has bilateral pleural effusions, followed here by Pulmonology. I discussed with cardiology. 04/26/21 Patient with acute respiratory failure due to acute on chronic systolic CHF and bilateral pleural effusions. She had thoracentesis today for moderate left pleural effusion. She tells me she does not have a PCP or Chef Saucier. She was seen at [facility] last time but does not have a Primary Chef Saucier. Today Cr 1.5 therefore hold Torsemide, repeat in am. Also Potassium 5.6, ordered Kayexalate. 04/27/21 Patient with acute resp failure due to acute on chronic systolic CHF and bilateral pleural effusions. s/p thoracentesis yesterday. She has swollen right breast with firm area on lower part, She tells me it has been swollen for 5 months and she had mammogram about 2 months ago at [facility] and was told it was negative. I have requested Mammogram report. BP borderline low at 93/66. I discussed with Cardiology. He will adjust medications. 04/28/21 Patient with acute respiratory failure due to acute on chronic systolic CHF and bilateral pleural effusions. s/p thoracentesis. She has swollen right breast with firm area on lower part, She tells me it has been swollen for 5 months and she had mammogram about 2 months ago at [facility] and was told it was negative. I have requested Mammogram report. Patient was seen by Chef Saucier today and Dobutamine drip ordered. Also cardiology recommends Life vest prior to discharge. 04/29/21. Cont. dobutamine per Cardiology recommendations. Await Lifevest. Cont. GDMT for heart failure. Bumex and spironolactone for diuresis. 04/30/21. Cardiology reports Patient may discharge from cardiac standpoint once LifeVest is either placed or Stacy safety representative has coordinated service appointment. Patient will need to follow-up with [facility] within 1 to 2 weeks of discharge. 05/01/2021. Case management to arrange for LifeVest exchange. Patient reportedly will have to have her old malfunctioning LifeVest swapped out for a new LifeVest. Case management left a voice message updating Stacy Arana LifeVest Liaison. Once, the LifeVest issue has been rectified patient will discharge home. Dedicated discharge time 35 minutes. Disposition: - TO HOME OR SELFCARE Final Discharge Diagnosis (Prints w/discharge instructions): Acute hypoxic res piratory failure, acute on chronic systolic heart failure, hypertension, nicotine dependence, acute kidney injury, vasomotor nephropathy, hyperkalemia, Core Measure Documentation - Palliative Care Palliative Care/ Comfort Measures: Not Applicable - Core Measures Any of the following diagnoses?: heart failure - Heart Failure Discharge Requirements SAM/ARB for LVSD if EF <40%: No Reason for no SAM/ARB: Renal impairment Beta sebastian at discharge: Yes Exam - Constitutional Vitals: Temp Pulse Resp BP Pulse Ox 97.8 F 82 18 108/78 99 05/01/21 04:52 05/01/21 04:52 05/01/21 04:52 05/01/21 04:52 05/01/21 04:52 General appearance: Present: no acute distress, well-nourished - EENT Eyes: Present: PERRL ENT: hearing intact, clear oral mucosa - Neck Neck: Present: supple, normal ROM - Respiratory Respiratory effort: normal Respiratory: bilateral: CTA - Cardiovascular Heart Sounds: Present: S1 & S2. Absent: rub, click - Extremities Extremities: pulses symmetrical, No edema Peripheral Pulses: within normal limits - Abdominal General gastrointestinal: Present: soft, non-tender, non-distended, normal bowel sounds Female genitourinary: Present: normal - Integumentary Integumentary: Present: clear, warm, dry - Musculoskeletal Musculoskeletal: gait normal, strength equal bilaterally - Psychiatric Psychiatric: appropriate mood/affect, intact judgment & insight - Neurologic Neurologic: CNII-XII intact, moves all extremities Plan Activity: advance as tolerated Weight Bearing Status: Weight Bear as Tolerated Diet: low fat, low cholesterol, low salt Special Instructions: restrict fluid intake to (1 L) Durable Medical Equipment Needed Upon Discharge: other (LifeVest) Follow up with: PRIMARY CARE, [Primary Care Provider] - 3-5 Days Prescriptions: Spironolactone [Aldactone] 25 mg PO QDAY #30 tablet Aspirin [Aspirin BABY CHEW TAB] 81 mg PO QDAY #30 tab.chew Bumetanide [Bumex 1 mg tab] 1 mg PO BID #60 tablet carvediloL [Coreg] 6.25 mg PO BID #60 tablet Nicotine [Habitrol] 14 mg TD QDAY #30 patch Famotidine [Pepcid] 20 mg PO QAM #30 tablet Rivaroxaban [Xarelto] 20 mg PO DAILY #30 tablet
[2021-05-01] MEDS: FAMOTIDINE 20 MG TAB PO SCH (10:51)
[2021-05-01] MEDS: SPIRONOLACTONE 25 MG TAB PO SCH (10:51)
[2021-05-01] MEDS: ASPIRIN 81 MG TAB CHEW PO SCH (10:51)
[2021-05-01] MEDS: NICOTINE 14 MG/24 HR PATCH TD SCH (10:51)
[2021-05-01] MEDS: carvediloL 6.25 MG TAB PO SCH (10:51)
[2021-05-01] MEDS: RIVAROXABAN 20 MG TAB PO SCH (10:51)
[2021-05-01] MEDS: BUMETANIDE 1 MG TAB PO SCH (10:51)
[2021-05-01 12:11] VITALS: BP 114/89
[2021-05-01 15:18] LABS: LDH,Body Fluid 340; Total Protein,Body Fluid < 3.0 (15.0-45.0)
--- NOTE | 2021-05-01 16:52 | Progress Note ---
Assessment and Plan Heart failure with reduced ejection fraction in setting of dilated cardiomyopathy * Echocardiogram reviewed (04/24/2021): LVEF is 10%. Left ventricle is severely dilated. Severe global hypokinesis of the left ventricle. Transmitral Doppler flow pattern suggests restrictive physiology. RV is mildly dilated. LA is severely dilated. RVSP is 27 mmHg. Moderate TR. * Patient states she has been followed by [place] [facility]. Records requested. * Optimize volume control: Continue Bumex to 1mg p.o. BID, Aldactone PO 25mg daily. * Continue GDMT with cardioprotective regimen: ASA, Coreg. No SAM in setting of recent SUSHANT and soft blood pressures. * Discontinue dobutamine gtt. * Due to severe cardiomyopathy and ventricular ectopy is observed on telemetry patient is recommended to wear LifeVest defibrillator. Patient is currently in possession of LifeVest placed in December 2020 but reports it is damaged due to repeated drops. YOVANA blackburn is aware that patient needs to have LifeVest serviced/replaced and states she is not eligible for new LifeVest placement until equipment is recovered. Patient will coordinate with YOVANA blackburn to facilitate service. Anticoagulation in setting of recent DVT and PE * Recently hospitalized at [facility] for DVT and PE 5 months prior. Records requested. * Continue Xarelto 20mg PO Daily Coronary artery disease with history of AMI * Troponin is negative x2. AMI is ruled out Medical noncompliance * Patient is currently out of medications due to reported failure to follow-up with scheduled appointments. She reports she is currently living with her sister and without transportation which presents a significant beto to follow-up care efforts. DVT prophylaxis * Xarelto Home regimen is currently resumed. Patient will coordinate with Yovana blackburn to service LifeVest. Nothing further from cardiac standpoint. Patient will need to follow-up with [place] [facility] within 1 to 2 weeks of discharge. This patient was seen in conjunction with Dr Griselda Mortensen who agrees with this assessment and plan of care Subjective Date of service: 05/01/21 Principal diagnosis: Acute on chronic HFrEF, Dilated CMP, Pleural effusion Interval history: Patient resting comfortably in chair at bedside. No shortness of breath or chest pain overnight. Telemetry reviewed: Sinus rhythm 99. No events Objective Last Vital Signs Temp 98.2 F 05/01/21 11:36 Pulse 105 H 05/01/21 11:36 Resp 19 05/01/21 11:36 BP 114/89 05/01/21 11:36 Pulse Ox 99 05/01/21 11:36 - Physical Examination General: No Apparent Distress HEENT: Positive: EOMI, Normocephaly, Mucus Membranes Moist Neck: Positive: neck supple, trachea midline, JVD/HJR Cardiac: Positive: Reg Rate and Rhythm, S1/S2 Lungs: Positive: Normal Exam, Normal Breath Sounds Neuro: Positive: Grossly Intact Abdomen: Positive: Soft, Active Bowel Sounds. Negative: Tender Skin: Negative: Rash Musculoskeletal: Normal Range of Motion Extremities: Present: upper extr. pulses, lower extr. pulses, +1 Edema - Imaging and Cardiology EKG: report reviewed, image reviewed Echo: report reviewed - Telemetry EKG Rhythm: Sinus Rhythm - EKG Sinus rhythms and dysrhythmias: sinus rhythm - Allied health notes Allied health notes reviewed: nursing
== END 2021-05-01 16:25 | disposition home or self-care (01) | DRG 291 ==
LOC: ED 23:46 → 4A 04-23 12:57 → OBSVTOIN 04-24 13:13
PROVIDERS: ADMIT Internal Medicine; ATTEND Hospitalist
PROC: 0W993ZZ Drainage of Right Pleural Cavity, Percutaneous Approach (ICD-10-PCS; principal; 2021-04-26)
PROC: BB4BZZZ Ultrasonography of Pleura (ICD-10-PCS; 2021-04-26)
DX: I13.0 Hypertensive heart and chronic kidney disease with heart failure and stage 1 through stage 4 chronic kidney disease, or unspecified chronic kidney disease (principal); J96.01 Acute respiratory failure with hypoxia; N17.0 Acute kidney failure with tubular necrosis; I50.23 Acute on chronic systolic (congestive) heart failure; G93.40 Encephalopathy, unspecified; J90 Pleural effusion, not elsewhere classified; E44.1 Mild protein-calorie malnutrition; I25.10 Atherosclerotic heart disease of native coronary artery without angina pectoris; Z77.29 Contact with and (suspected) exposure to other hazardous substances; E87.5 Hyperkalemia; N18.9 Chronic kidney disease, unspecified; F17.210 Nicotine dependence, cigarettes, uncomplicated; I42.0 Dilated cardiomyopathy; Z86.73 Personal history of transient ischemic attack (TIA), and cerebral infarction without residual deficits; Z86.718 Personal history of other venous thrombosis and embolism; Z86.711 Personal history of pulmonary embolism; I25.2 Old myocardial infarction; Z91.14 Patient's other noncompliance with medication regimen; Z71.6 Tobacco abuse counseling; Z82.49 Family history of ischemic heart disease and other diseases of the circulatory system
CPT/HCPCS: 32555; 36415; 70450; 71045; 76604; 80048; 80053; 80320; 82140; 82550; 82565; 82803; 82805; 82962; 83036; 83605; 83615; 83690; 83735; 83880; 84160; 84443; 84484; 84702; 85007; 85025; 85027; 85610; 85730; 87040; 87116; 88112; 88305; 89051; 93005; 93306; 96365; 96367; 96368; 96375; 99406; G0378; G0480; J0456; J0696; J1170; J1250; J1644; J1940; J2405; J2765; J7030